=== PATIENT | male | born 1945 | race Caucasian/White ===

== ENCOUNTER 2024-03-26 22:18 | Inpatient (IN) | payer OTHER, SELFPAY ==
[2024-03-26] VITALS (42 sets, daily range): BP systolic 60–126; BP diastolic 39–67; BMI 29.3; BMI 28.6
[2024-03-26 19:42] LABS: Hematocrit 35.4 % (39.0-52.0); Hemoglobin 11.4 g/dL (13.0-18.0); Mean Corp Hgb Conc. 32.2 g/dL (33.0-37.0); Mean Corpuscular Hgb 28.6 pg (27.0-31.0); Mean Corpuscular Volume 88.9 fL (80.0-94.0); Mean Platelet Volume 11.3 fL (7.4-10.4); Platelet Count 153 10^3/uL (130-400); Red Blood Cell Count 3.98 10^6/uL (4.70-6.10); White Blood Cell Count 16.6 10^3/uL (4.8-10.8)
[2024-03-26] MEDS: NSS 1000 IV ×2 (19:53→23:51)
[2024-03-26] MEDS: ZOSYN 100 IV (19:56)
[2024-03-26] MEDS: NSS 1900 ML IV (19:56)
[2024-03-26 19:57] LABS: AST (SGOT) 44 U/L (17-59); Albumin 2.9 g/dl (3.5-5.0); Alkaline Phosphatase 129 U/L (38-126); Blood Urea Nitrogen 44 mg/dl (9-20); Calcium 8.7 mg/dl (8.4-10.2); Carbon Dioxide 19 mmol/L (22-30); Chloride 102 mmol/L (98-107); Estimated Creatinine Clearance 32 ml/min; Glucose 138 mg/dl (70-99); Potassium 4.3 mmol/L (3.5-5.1); Sodium 136 mmol/L (135-145); Total Bilirubin 0.9 mg/dl (0.2-1.3); Total Protein 6.4 g/dl (6.3-8.2); eGFR 33.32
[2024-03-26 20:01] LABS: Lactic Acid 6.5 mmol/L (0.7-2.0)
[2024-03-26 20:06] LABS: Urine Albumin 3+ (Neg - Trace); Urine Bilirubin 1+ (Negative); Urine Character Cloudy (Clear); Urine Color Yellow; Urine Glucose Negative (Negative); Urine Ketone 1+ (Negative); Urine Leukocyte 3+ (Negative); Urine Nitrite Negative (Negative); Urine Occult Blood 4+ (Negative); Urine Urobilinogen 1+ (Neg - 1+)
[2024-03-26 20:09] LABS: ALT (SGPT) 37 U/L (0-50)
[2024-03-26 20:39] LABS: B.E. -2.5 mmol/L; HCO3 21.6 mmol/L (21-28); PCO2 34 mmHg (35-48); PO2 123 mmHg (83-108); pH 7.41 (7.35-7.45)
--- NOTE | 2024-03-26 20:40 | ED.GENMED ---
History of Present Illness
General
Chief Complaint: Cold/Flu/URI Symptoms
Source: prison
Exam Limitations: clinical condition
Time Seen by Provider: 03/26/24 19:14
History of Present Illness
History of Present Illness:
79-year-old male presents with mental status change weakness hypotension and fever. All started apparently this afternoon. Was in reasonably good health this morning. Usually very alert and interactive. Patient is nonambulatory. Lives in a
wheelchair.
Past History
Past History
ED Past Medical History: HTN, Hypothyroidism and Psychiatric
ED Past Surgical History: Other (Hernia )
Social History
Tobacco: Smoker
Alcohol: None
Personal: Single
Living: with roommate
Employment: Disabled
Family History
Family History: Negative Early CAD
Review of Systems
Review of Systems
Unable to obtain full review of systems at this time due to: due to acuity
All Other Systems: Not applicable
Phy Exam
Physical Exam
Physical Exam:
GENERAL: Lethargic. Chronically ill-appearing. Does not respond to commands does respond to pain
EYE: Orbits normal.
NECK: Supple, no significant adenopathy.
ENT: Pharynx without erythema
CARDIAC: Regular rate and rhythm without any obvious murmurs.
LUNGS: Decreased effort to breathe. Slight rhonchi in the bases. No distress
ABDOMEN: Soft, without focal tenderness or distention
NEUROLOGICAL: Withdraws to pain in response to pain only. Does not follow commands
SKIN: Warm and dry, no rash or lesion, no discoloration, skin intact.
MUSCULOSKELETAL: No edema,no deformity.Good color
Sepsis
Sepsis Screening
Sepsis Assessment: Septic Shock
Sepsis Screening: Lactate >/=4mmol/L, Hypotension, ARF-Creatinine >2.0, Sustained Hypotension-SBP <90,MAP<65, or SBP decrease 40mmHg or more and Vasopressor support required
Sepsis Screen
Sepsis Screen: Septic Shock
Date: 03/26/24
Time: 23:29
Course
Orders/Labs/Results
Orders:
Orders
03/26/24 Dinner
NPO
Allow oral meds: Yes
Allow clear liquids: Sips of Clears
03/26/24 19:20
Electrocardiogram (*1) Urgent
Reason for Study: Other
Other Reason for Exam: sepsis
Cardiac Monitoring- Treatment ONCE
EKG- Treatment ONCE
IV Insert/Care/Rem.- Treatment PRN
Straight cath- Treatment ONCE
0.9% Sodium Chloride 1000 ml [Nss] 1,000 ml IV BOLUS
CR Chest Portable - 1 View Urgent
Comment:
Reason For Exam: Fever/sepsis
Reason Study Needs to be Portable: Unable to Transport
O2 Therapy [RESP] Urgent
Titrate/Wean O2 to maintain O2 sat greater than (%): 94
Pulse Ox/cont/shift [RESP] Urgent
Quantity: 1
03/26/24 19:23
Complete Blood Count/With Diff Urgent
Comprehensive Metabolic Panel Urgent
Lactic Acid Q4H
Comment: CANCEL 2nd LACTIC ACID IF 1st LACTIC ACID IS LESS THAN 2
Manual Differential Urgent
Influenza A+B Rapid Molecular Urgent
JOSE ELIAS Source: Nasal Swab
Specimen Description:
03/26/24 19:31
0.9% Sodium Chloride 1000 ml [Nss] 1,900 ml IV NOW STA
Piperacillin/Tazo 4.5 Gram [Zosyn] 4.5 gram in 100 ml IV NOW
Vancomycin [Vancocin] 2,000 mg 0.9% Sodium Chloride 500 ml [Nss] 500 ml IV NOW
03/26/24 19:34
CT Head W/o Iv Contrast Urgent
Comment:
Reason For Exam: Change in mental status
03/26/24 19:46
Urinalysis Reflex To Culture Urgent
Date Specimen was Collected: 03/26/24
Time Specimen was Collected: 19:45
Urine Microscopic Reflex Cult Urgent
Blood Culture Q30M
JOSE ELIAS Source: Blood/Venous
Specimen Description:
Blood Culture Q30M
JOSE ELIAS Source: Blood/Venous
Specimen Description:
Urine Culture Urgent
JOSE ELIAS Source: U
Specimen Description:
Date Specimen was Collected: 03/26/24
Time Specimen was Collected: 19:45
03/26/24 20:27
ABG [Arterial Blood Gas] Urgent
%Oxygen/Room Air: 2l
03/26/24 20:34
Vancomycin [Vancocin] 2,000 mg 0.9% Sodium Chloride 500 ml [Nss] 500 ml IV NOW
03/26/24 20:51
CT Abd/pelvis Wo Iv Cont Urgent
Reason For Exam: sepsis
03/26/24 21:12
NORepinephrine 4 MG/250 ML [Levophed] 4 mg in 250 ml .ROUTE .STK-MED
NORepinephrine 4 MG/250 ML [Levophed] 4 mg in 250 ml IV NOW
Initial dose in mcg/min, then titrate:: 2
Titrate to keep:: MAP > 65 mmHg
Titrate by mcg/min:: 1-2 mcg/min
Frequency of titrations (minutes):: 5
Maximum dose in ICU in mcg/min:: 30
Maximum dose in IMU in mcg/min:: 8
Maximum dose in IVU in mcg/min:: 4
Begin to taper infusion when:: Remained at goal for 4hrs
Taper by mcg/min:: 1-2 mcg/min
Frequency of taper (minutes) if patient maintains goal:: 30
Taper to off?: Yes
If infusion off & no longer maintaining goal:: Contact Provider
03/26/24 21:40
Admit/Transfer Patient As Directed
Co-Sign Provider:
Level of Care: Inpatient admission
Assign to:: ICU
Physician / Group: greta
Diagnosis: septic shock renal abscess
Reason for Hospitalization: septic shock renal abscess
Expected length of stay greater than two midnights?: Yes
ELOS- Estimated Length of Stay in days: 2
I certify the patient meets the requirements for IP care: Yes
03/26/24 21:44
Code Status As Directed
Resuscitation Status: Full Code
PRN Pain Medication Management As Directed
May give lesser potent ordered pain med per pt: Yes
preference::
Protocol:: Medication orders for pain may be administered in a
manner that supports deferring to patient preference
when the pt is:
- Requesting an ordered lesser potent pain medication.
Least to most potent pain medications are defined
as: acetaminophen < NSAID < tramadol < opioids
(morphine, oxycodone, hydromorphone).
- Requesting a lesser dose of the same medication IF
ORDERED.
- Requesting a less intrusive route of administration
if both routes are prescribed by the provider (PO <
IV).
03/26/24 23:15
Lactate Level [Lactic Acid] Q6H
0.9% Sodium Chloride 1000 ml [Nss] 1,000 ml IV 120 mls/hr
Piperacillin/Tazo 3.375 Gram [Zosyn] 3.375 gram in 50 ml IV Q6H
VANCOMYCIN Pharmacy to Dose [VANCOCIN Pharmacy to Dose] 1 each Pharmacy To Prepare [Call Pharmacy To Prepare] 0 ml IV PER PROTOCOL
03/26/24 23:15
UROLOGY CONSULT Routine
Consulting Provider: Gm Coppola
Was physician already notified: Yes
Activity As Directed
Activity Level: As Tolerated
Pneumatic Compression Sleeves As Directed
Type: Knee high
Vital Signs As Directed
Frequency: Per unit guidelines
DX Deep Vein Thrombosis Video Routine
03/26/24 23:30
Lactic Acid Q4H
Comment: CANCEL 2nd LACTIC ACID IF 1st LACTIC ACID IS LESS THAN 2
03/27/24 06:00
Complete Blood Count/With Diff IN AM
Comprehensive Metabolic Panel IN AM
Abnormal Lab Results
03/26/24 03/26/24 03/26/24
19:23 19:46 20:27
WBC 16.6 H 10^3/uL
(4.8-10.8)
RBC 3.98 L 10^6/uL
(4.70-6.10)
Hgb 11.4 L g/dL
(13.0-18.0)
Hct 35.4 L %
(39.0-52.0)
MCHC 32.2 L g/dL
(33.0-37.0)
RDW 15.0 H %
(11.5-14.5)
MPV 11.3 H fL
(7.4-10.4)
Abs Neuts (Manual) 15.9 H 10^3/uL
(1.4-6.5)
Segmented Neutrophils 81 H %
(42-75)
Band Neutrophils 15 H %
(0-3)
Lymphocytes (Manual) 1 L %
(20-51)
pCO2 34 L mmHg
(35-48)
pO2 123 H mmHg
(83-108)
ABG O2 Sat (Measured) 100.0 H %
(94-98)
Carbon Dioxide 19 L mmol/L
(22-30)
BUN 44 H mg/dl
(9-20)
Creatinine 2.0 H mg/dL
(0.7-1.3)
Glucose 138 H mg/dl
(70-99)
Lactic Acid 6.5 H* mmol/L
(0.7-2.0)
Alkaline Phosphatase 129 H U/L
(38-126)
Albumin 2.9 L g/dl
(3.5-5.0)
Urine Ketones 1+ A
(Negative)
Ur Occult Blood Reflex 4+ A
(Negative)
Urine Bilirubin 1+ A
(Negative)
Leukocyte Esterase Rfl 3+ A
(Negative)
Urine WBC (Reflex) >100 A /HPF
(0-5)
Urine Albumin (Reflex) 3+ A
(Neg - Trace)
03/26/24 19:23
03/26/24 19:23
Vital Signs
Initial and Last Documented VS:
Initial Vital Signs
Temp Pulse Resp BP Pulse Ox
103.3 F H 75 20 76/66 88
03/26/24 19:13 03/26/24 19:13 03/26/24 19:13 03/26/24 19:13 03/26/24 19:13
Last Documented Vital Signs
Temp Pulse Resp BP Pulse Ox
98.3 F 68 21 100/58 99
03/26/24 22:06 03/26/24 23:21 03/26/24 23:20 03/26/24 23:21 03/26/24 23:10
MDM/Problems Addressed
Differential Diagnosis Includes:
Patient is septic. Hypotensive change in mental status fever. Fluids antibiotics discussed with patient's cousin she is not power of document review attorney. Patient is listed as full code. Workup in progress. Urine positive.
*Radiology
Radiology exam reviewed: radiology read reviewed (Perirenal abscess versus mass)
*Pulse Oximetry
Patient hypoxic: yes
*EKG
Interpreted by ED Provider?: Yes
Interpretation: abnormal
Comparison EKG: no comparison EKG present
Heart Rate: 73
Rate: normal
Rhythm: junctional
[place]: normal axis
Interval: normal interval
QRS Pattern: normal QRS
Ischemia: non-specific ST changes
*Head Of Quality Interpretation
Rate: normal
Interpretation: abnormal
Heart Rate: 70
Rhythm: other (Atrial paced)
*Critical Care Note
Total Time (30-74mins, 75-104mins- exclusive of procedures): 50
Update Note
Update Note:
2114... Rechecked multiple times. Pressures remain low despite fluids. Will start Levophed. Perirectal abscess versus mass. Referred to hospitalist.
ED Attending Note
-
Portions of this chart may have been created with voice recognition software.� Occasional wrong word or��sound alike� substitutions may have occurred due to the inherent limitations of voice recognition software.
Discharge Plan
Departure
Patient Disposition: Admit
Date of Disposition: 03/26/24
Time of Disposition: 21:12
Presentation/result/management discussed w/ accepting MD/DO: Hospitalist
Discharge Problem:
Septic shock, Possible perinephric abscess, Urosepsis
Interventions
Interventions:
*Risk Screen - Suicide Last Done: 03/26/24 19:26
*General Assessment Last Done: 03/26/24 19:26
*Neglect/Abuse Screening Last Done: 03/26/24 19:26
ED- Fall Risk Assessment Last Done: 03/26/24 21:43
*ED COVID-19 Vaccine History Last Done: 03/26/24 19:26
*Nursing Disposition Last Done: 03/26/24 23:25
ED- Pulmonary Assessment Last Done: 03/26/24 21:43
Discharge Date and Time
Discharge Date/Time: 03/26/24 23:26
[2024-03-26 20:52] LABS: Urine White Cell >100 /HPF (0-5)
[2024-03-26] MEDS: VANCOCIN 540 MG IV (21:08)
[2024-03-26] MEDS: LEVOPHED 250 IV (21:13)
--- NOTE | 2024-03-26 21:52 | HPS.HSE ---
Addendum entered and electronically signed by Graciela Garcia MD 03/26/24 22:05:
Discussed findings with urology. No need for urgent urological intervention due to lack of obstruction. Can try to attempt CT abdomen pelvis with IV contrast tomorrow if hemodynamically more stable and improvement in GABRIEL. Will also need to have
IR see if they can drain the potential abscess.
Original Note:
Family Physician
-
Family Physician: Jerman Gaitan
Chief Complaint
-
altered mental status
History of Present Illness
79-year-old male past medical history of CAD, atrial fibrillation, hypertension, hypothyroidism, anxiety, depression, asthma, glucoma, IBS, kidney stones, prostate cancer, presenting from [facility] with change in mental status, weakness and
hypertension fever. Symptoms apparently started this afternoon. Was apparently in reasonably good health until this morning. Usually very alert and interactive. Patient cannot provide any history at this time.
Medical History
Past Medical History
Past Medical History: Reports Other (CAD, atrial fibrillation, hypertension, hypothyroidism, anxiety, depression, asthma, glucoma, IBS, kidney stones, prostate cancer)
Past Surgical History: Reports None
Social History
Tobacco: Non-smoker
Alcohol: None
Drug: None
Family History
Family History: Not pertinent
Allergies / Home Medications
Allergies reflects when Allergies were last updated in [facility].
Home Medications with original date entered in [facility]
Allergy/Medication List:
Allergies
Allergy/AdvReac Type Severity Reaction Status Date / Time
No Known Allergies Allergy Unverified 05/29/09 14:16
Home Medications
acetaminophen 325 mg tablet (Tylenol) 650 mg PO TID 03/26/24
aluminum-mag hydroxide-simethicone 200 mg-200 mg-20 mg/5 mL oral susp 30 ml PO Q6HPRN PRN heartburn 03/26/24
aspirin 81 mg tablet,delayed release 81 mg PO DAILY 03/26/24
atorvastatin 40 mg tablet (Lipitor) 40 mg PO QPM 03/26/24
bupropion HCl 150 mg tablet,12 hr sustained-release (Wellbutrin SR) 150 mg PO DAILY 03/26/24
diclofenac sodium 1 % topical gel 2 g topical BID l lat neck/posterior 03/26/24
divalproex 125 mg tablet,delayed release 250 mg PO BID 03/26/24
finasteride 5 mg tablet 5 mg PO DAILY 03/26/24
furosemide 20 mg tablet (Lasix) 20 mg PO DAILY 03/26/24
gabapentin 100 mg tablet 200 mg PO TID 03/26/24
latanoprost 0.005 % eye drops 1 drp BOTH EYES HS 03/26/24
levothyroxine 200 mcg tablet (Synthroid) 200 mcg PO DAILY 03/26/24
lisinopril 5 mg tablet 5 mg PO DAILY 03/26/24
loperamide 2 mg tablet 2 mg PO Q6HPRN PRN diarrhea 03/26/24
loratadine 10 mg tablet 10 mg PO DAILY 03/26/24
magnesium oxide 400 mg PO DAILY 03/26/24
metoprolol succinate 25 mg tablet,extended release 24 hr (Toprol XL) 25 mg PO DAILY 03/26/24
nystatin 100,000 unit/gram topical powder 1 applic topical TIDPRN PRN abd folds 03/26/24
oxybutynin chloride 5 mg tablet 5 mg PO HS 03/26/24
polyethylene glycol 3350 17 gram oral powder packet (Miralax) 17 g PO DAILY 03/26/24
rivaroxaban 20 mg tablet (Xarelto) 20 mg PO DAILY 03/26/24
tamsulosin 0.4 mg capsule (Flomax) 0.4 mg PO DAILY 03/26/24
tetrabenazine 12.5 mg tablet 12.5 mg PO DAILY 03/26/24
tiotropium bromide 18 mcg capsule with inhalation device (Spiriva with HandiHaler) 1 cap inhalation R DAILY 03/26/24
trazodone 50 mg tablet 75 mg PO HS 03/26/24
Review of Systems
-
History Source: Patient
A 12 point ROS was completed and negative except as noted: Yes
Constitutional: Reports No Symptoms
EENT: Reports No Symptoms
Respiratory: Reports No Symptoms
Cardiac: Reports No Symptoms
Abdomen/GI: Reports No Symptoms
: Reports No Symptoms
Musculoskeletal: Reports No Symptoms
Skin: Reports No Symptoms
Neurological: Reports No Symptoms
Endocrine: Reports No Symptoms
Hematologic/Lymphatic: Reports No Symptoms
Psych: Reports No Symptoms
Physical Exam
Vital Signs
Vital Signs
Temp Pulse Resp BP Pulse Ox
103.3 F H 69 18 74/44 100
03/26/24 19:13 03/26/24 21:30 03/26/24 21:30 03/26/24 21:30 03/26/24 21:15
Physical Exam
General: Well Developed, Well Nourished and No Apparent Distress
HEENT: NormoCephalic, Moist mucous membranes and Atraumatic
Respiratory: Clear
Cardiac: S1/S2 and Regular Rhythm; No Murmur or Rub
GI: Soft, Non Tender, Non Distended and Normal Bowel Sounds; No Organomegaly
Rectal: Deferred by Provider
Musculoskeletal: No Clubbing, No Cyanosis and No Edema
Skin: No Rash
Neuro: Nonfocal/grossly intact
Laboratory Results
-
03/26/24 19:23
03/26/24 19:23
Laboratory Results
pH 7.41 (7.35-7.45) 03/26/24 20:27
pCO2 34 mmHg (35-48) L 03/26/24 20:27
pO2 123 mmHg (83-108) H 03/26/24 20:27
HCO3 21.6 mmol/L (21-28) 03/26/24 20:27
Lactic Acid 6.5 mmol/L (0.7-2.0) H* 03/26/24 19:23
Total Bilirubin 0.9 mg/dl (0.2-1.3) 03/26/24 19:23
AST 44 U/L (17-59) 03/26/24 19:23
ALT 37 U/L (0-50) 03/26/24 19:23
Alkaline Phosphatase 129 U/L (38-126) H 03/26/24 19:23
Data Reviewed
-
Lab Data: Labs Reviewed by me
Old Records: Reviewed
Impression/Plan
-
IMPRESSION:
PLAN:
# Septic shock (fever, leukocytosis, hypertension) secondary to right-sided pyelonephritis/renal abscess versus malignancy
-Patient moans to sternal rub
-UA >[address]
-CT abdomen pelvis shows ill-defined hypodense lesion arising from the superior aspect of the kidney and may be contiguous with adjacent liver measuring 5.9 x 8.6 x 7.2 cm which could represent underlying malignancy or possible infection/abscess.
No obstructive uropathy
-CT head shows no acute abnormality
-Lactate 6.5
-ABG unremarkable
-IV fluids
-Check urine culture, blood cultures
-Vancomycin/Zosyn
-Levophed
-N.p.o. including oral medications due to mental status at this time
-urology consulted
# Acute kidney injury
-IV fluids
-Hold Lasix
-Hold lisinopril
CAD
-Continue aspirin and statin
Atrial fibrillation unspecified type
-Hold Xarelto
-Hold metoprolol due to hypotension
Essential hypertension
-Hold lisinopril
Hypothyroidism
-Continue levothyroxine
Anxiety/depression
-Continue bupropion, divalproex
-Hold trazodone
-Unclear why on tetrabenazine, no visible history of Bowie disease
Asthma
-Continue Spiriva
Glaucoma
IBS
Prostate cancer
-Continue tamsulosin, finasteride
History of kidney stones
Arthritis
Full code
DVT prophylaxis�SCDs
N.p.o.
[2024-03-26 23:13] LABS: Absolute Neutrophils -Man Diff 15.9 10^3/uL (1.4-6.5); Band Neutrophils 15 % (0-3); Lymphocytes 1 % (20-51); Monocytes 2 % (2-9); Myelocytes 1 % (-); Segmented Neutrophils 81 % (42-75); Total Cells Counted 100
[2024-03-26 23:20] LABS: Normal RBC Morphology Yes; Platelets Checked Yes
--- NOTE | 2024-03-26 23:34 | PHA.VAN.IN ---
Assessment
- Assessment
Renal Function: Unknown baseline
Maximum Temperature: 103.3F
Concomitant Antimicrobials: piperacillin/tazobactam
Plan
- Plan
Initial / Loading Dose: Vancomycin 2000mg given 03/26 at 2100
Monitoring: Random vancomycin level for 03/27 with am labs.
Will dose by level due to current renal function.
Pharmacokinetics Vancomycin I
- -
Patient Age: 79
Patient Sex: Male
Vancomycin Day #: 1
Indication: Genito-Urinary Tract
Requesting Provider: Dr. Garcia
Pertinent Antimicrobial Allergies:
NKA
Height / Weight:
Height 5 ft 11 in
Actual Weight 92.9 kg
- Vital Signs / Lab Results
Temp Pulse Resp BP Pulse Ox
98.3 F 68 21 100/58 99
03/26/24 22:06 03/26/24 23:21 03/26/24 23:20 03/26/24 23:21 03/26/24 23:10
Lab Results - Hematology
03/26/24
19:23
WBC 16.6 H
Band Neutrophils 15 H
Lab Results - Chemistry
03/26/24
19:23
BUN 44 H
Creatinine 2.0 H
Estimated Creat Clear 32
Albumin 2.9 L
03/26/24
19:23
Lactic Acid 6.5 H*
Lab Results - Urine
03/26/24
19:46
Urine Nitrite (Reflex) Negative
Leukocyte Esterase Rfl 3+ A
Urine WBC (Reflex) >100 A
Ur Squamous Epith Cells
Microbiology Results
03/26/24 19:23 Influenza Types A & B (RICHA) - Final
Nasal Swab Negative for Influenza A & B, NAAT
Negative results must be combined with clinical observations
and patient history.
Nucleic Acid Amplification test (NAAT)performed on the
[employer] platform.
[2024-03-27] VITALS (52 sets, daily range): BP systolic 76–142; BP diastolic 25–99; BMI 28.9
[2024-03-27 00:01] LABS: Lactic Acid 2.1 mmol/L (0.7-2.0)
[2024-03-27 00:02] LABS: INR 1.62; PT 19.5 Sec (11.4-14.6)
[2024-03-27 00:03] LABS: APTT 37.9 Sec (23.4-35.0)
--- NOTE | 2024-03-27 00:23 | W.PN.SEPSIS ---
Sepsis
Vital Signs
Temp Pulse Resp BP Pulse Ox
98.3 F 68 21 100/58 98
03/26/24 22:06 03/26/24 23:21 03/26/24 23:20 03/26/24 23:21 03/26/24 23:44
Physical Exam
Physical Exam:
A focused exam was performed after fluid resuscitation.
Capillary Refill
Bilateral Upper Extremity:
Lanie Time: Less than 3 sec
Bilateral Lower Extremity:
Lanie Time: Less than 3 sec
Pulse Evaluation
Bilateral Radial:
Pulse Evaluation: Present
Bilateral Dorsalis Pedis:
Pulse Evaluation: Present
[2024-03-27 00:36] LABS: Glucose - Point of Care 230 mg/dl (70-99)
--- NOTE | 2024-03-27 00:36 | PTCARENOTE ---
Pt arrived from ED approx 2320. Pt was transferred from stretcher to bed by staff without incidence. Pt is very lethargic, briefly opens eyes to external stimuli. No commands followed, pt nonverbal at this time. Complete CHG bath provided upon
arrival to ICU. Lung sounds are clear/coarse throughout, pox 98% on 2L O2 nasal cannula. Telemetry rhythm reveals A-paced rhythm, HR 60's, no edema noted, palpable peripheral pulses present, knee high SCDs placed per order. Pt arrived from ED with
Levophed infusing at 15 mcg/min to maintain MAP > 65mmHg via L AC int. Pre-hospital R wrist int removed per protocol, new int placed in L FA (capped). HypoBS, abdomen soft nontender, NPO status maintained. Pt was straight cathed in ED for specimen,
no void as of yet on unit. #25 condom cath placed. Skin as documented. Will reposition pt Q2H for skin integrity. Call lopez within reach, safe environment maintained, bed alarm on and monitor for pt safety.
[2024-03-27] MEDS: NOVOLOG FLEXPEN-HIGH RESISTANCE 4 UNITS SC (00:48)
[2024-03-27] MEDS: ZOSYN 50 IV ×4 (01:55→19:35)
[2024-03-27] MEDS: LEVOPHED 250 IV ×3 (01:58→22:00)
[2024-03-27 04:04] LABS: Lactic Acid 1.3 mmol/L (0.7-2.0)
[2024-03-27 04:05] LABS: ALT (SGPT) 24 U/L (0-50); AST (SGOT) 43 U/L (17-59); Albumin 2.4 g/dl (3.5-5.0); Alkaline Phosphatase 109 U/L (38-126); Blood Urea Nitrogen 41 mg/dl (9-20); Calcium 7.7 mg/dl (8.4-10.2); Carbon Dioxide 24 mmol/L (22-30); Chloride 105 mmol/L (98-107); Estimated Creatinine Clearance 43 ml/min; Glucose 217 mg/dl (70-99); Hematocrit 31.9 % (39.0-52.0); Hemoglobin 10.4 g/dL (13.0-18.0); Mean Corp Hgb Conc. 32.6 g/dL (33.0-37.0); Mean Corpuscular Hgb 29.5 pg (27.0-31.0); Mean Corpuscular Volume 90.6 fL (80.0-94.0); Mean Platelet Volume 11.4 fL (7.4-10.4); Phosphorus 3.6 mg/dl (2.5-4.5); Platelet Count 150 10^3/uL (130-400); Red Blood Cell Count 3.52 10^6/uL (4.70-6.10); Red Cell Dist. Width 15.1 % (11.5-14.5); Sodium 137 mmol/L (135-145); Total Bilirubin 0.8 mg/dl (0.2-1.3); Total Protein 5.7 g/dl (6.3-8.2); eGFR 47.06
[2024-03-27 04:09] LABS: Vancomycin Random 16.7 ug/ml
--- NOTE | 2024-03-27 04:43 | PTCARENOTE ---
Tapering Levophed as able per parameters, see flowsheet.
Pt's rectal temp < 97F, order received to place pt on neris hugger. Device in use, rectal probe remains in place.
Oral care provided. Pt wakened slightly during care, speech was garbled but was able to state his name correctly. Informed pt he was in [facility]. Asked pt if he was experiencing any pain and pt responded 'no.' Continuing to reposition pt Q2H for skin
integrity. Will continue to monitor closely.
[2024-03-27] MEDS: NOVOLOG FLEXPEN-HIGH RESISTANCE 2 UNITS SC ×2 (05:00→18:38)
[2024-03-27 05:11] LABS: Glucose - Point of Care 192 mg/dl (70-99)
[2024-03-27 05:35] LABS: Monocytes 2 % (2-9)
[2024-03-27 05:36] LABS: Platelets Checked Yes
[2024-03-27 05:39] LABS: Absolute Neutrophils -Man Diff 19.9 10^3/uL (1.4-6.5); Band Neutrophils 26 % (0-3); Lymphocytes 3 % (20-51); Segmented Neutrophils 69 % (42-75)
[2024-03-27 05:47] LABS: Normal RBC Morphology Yes; Total Cells Counted 100; Toxic Granulation 1+
--- NOTE | 2024-03-27 06:20 | CONS.URO ---
Consultation
-
Date/Time Consultation Requested: 03/27/24
Date/Time Consultation Performed: 03/27/24
Requesting Provider: Hospitalist
Performing Provider: Anat
Reason for Consultation: right renal abscess
Medical History
History of Present Illness
79M presenting w/ altered mental status (baseline usually alert and interactive per records).
Patient unable to provide history at time of physical exam.
Prior urologic h/o kidney stones and prostate cancer.
On review of CT imaging, he appears to have had seed brachytherapy for treatment.
Past Medical History
Past Medical History: Arrhythmia (atrial fibrillation), Asthma, CAD, Cancer (prostate cancer s/p seed brachytherapy), HTN, Hypothyroidism, Psychiatric (anxiety/depression) and Other (glaucoma, IBS, kidney stones)
Social History
Unable to obtain full social history at this time due to: Acuity
Tobacco: Non-smoker
Alcohol: None
Drug: None
Living: Shelter
Allergies/Home Medications
Allergies
Allergy/AdvReac Type Severity Reaction Status Date / Time
ciprofloxacin Allergy Unknown Unknown Unverified 03/27/24 01:37
Quinolones Allergy Unknown Unknown Unverified 03/27/24 01:37
Home Medications
�Medication �Instructions �Recorded �Confirmed �Type
acetaminophen 325 mg tablet 650 mg PO TID 03/26/24 03/26/24 History
(Tylenol)
aluminum-mag hydroxide-simethicone 30 ml PO Q6HPRN PRN heartburn 03/26/24 03/26/24 History
200 mg-200 mg-20 mg/5 mL oral susp
aspirin 81 mg tablet,delayed 81 mg PO DAILY 03/26/24 03/26/24 History
release
atorvastatin 40 mg tablet (Lipitor) 40 mg PO QPM 03/26/24 03/26/24 History
bupropion HCl 150 mg tablet,12 hr 150 mg PO DAILY 03/26/24 03/26/24 History
sustained-release (Wellbutrin SR)
diclofenac sodium 1 % topical gel 2 g topical BID l lat 03/26/24 03/26/24 History
neck/posterior
divalproex 125 mg tablet,delayed 250 mg PO BID 03/26/24 03/26/24 History
release
finasteride 5 mg tablet 5 mg PO DAILY 03/26/24 03/26/24 History
furosemide 20 mg tablet (Lasix) 20 mg PO DAILY 03/26/24 03/26/24 History
gabapentin 100 mg tablet 200 mg PO TID 03/26/24 03/26/24 History
latanoprost 0.005 % eye drops 1 drp BOTH EYES HS 03/26/24 03/26/24 History
levothyroxine 200 mcg tablet 200 mcg PO DAILY 03/26/24 03/26/24 History
(Synthroid)
lisinopril 5 mg tablet 5 mg PO DAILY 03/26/24 03/26/24 History
loperamide 2 mg tablet 2 mg PO Q6HPRN PRN diarrhea 03/26/24 03/26/24 History
loratadine 10 mg tablet 10 mg PO DAILY 03/26/24 03/26/24 History
magnesium oxide 400 mg PO DAILY 03/26/24 03/26/24 History
metoprolol succinate 25 mg 25 mg PO DAILY 03/26/24 03/26/24 History
tablet,extended release 24 hr
(Toprol XL)
nystatin 100,000 unit/gram topical 1 applic topical TIDPRN PRN abd 03/26/24 03/26/24 History
powder folds
oxybutynin chloride 5 mg tablet 5 mg PO HS 03/26/24 03/26/24 History
polyethylene glycol 3350 17 gram 17 g PO DAILY 03/26/24 03/26/24 History
oral powder packet (Miralax)
rivaroxaban 20 mg tablet (Xarelto) 20 mg PO DAILY 03/26/24 03/26/24 History
tamsulosin 0.4 mg capsule (Flomax) 0.4 mg PO DAILY 03/26/24 03/26/24 History
tetrabenazine 12.5 mg tablet 12.5 mg PO DAILY 03/26/24 03/26/24 History
tiotropium bromide 18 mcg capsule 1 cap inhalation R DAILY 03/26/24 03/26/24 History
with inhalation device (Spiriva
with HandiHaler)
trazodone 50 mg tablet 75 mg PO HS 03/26/24 03/26/24 History
Review of Systems
-
Unable to obtain full review of systems at this time due to: Acuity
History Source: Shelter
A 12 point Review of Systems was completed except as noted: Yes
Physical Exam
Vital Signs
Vital Signs
Temp Pulse Resp BP Pulse Ox
97.1 F 92 20 78/66 95
03/27/24 05:00 03/27/24 07:00 03/27/24 07:00 03/27/24 07:00 03/27/24 05:34
Lab / Testing Results
Laboratory Results
03/27/24 03:31
03/27/24 03:31
Physical Exam
General: Well Developed and Well Nourished
HEENT: Normocephalic and Anicteric
Respiratory: Non Labored Respirations
Cardiac: Regular Rhythm
Breast: N/A
GI: Soft, Non Tender and Non Distended
Rectal: Deferred by Provider
Musculoskeletal: No Edema
Psych: Confused and Apparent Dementia
Assessment / Plan
-
Right renal abscess
Non-obstructing right renal stones
H/o prostate cancer s/p seed brachytherapy
CTAP w/o IV contrast => mass extending between the upper pole of the right kidney and the adjacent right lobe of the liver, appearing to invade both of these structures. A differential considerations are abscess and neoplasia, or possibly a
combination of these 2 processes. A right renal origin would seem most likely, but difficult to state with certainty.
Right renal stones.
Given non-contrast imaging, difficult to clearly determine if right renal mass present.
However, given clinical picture w/ altered mental status, signficant leukocytosis, and lactic acidosis on presentation => right renal abscess suspected.
- Advise IR consultation for peructaneous drainage (and fluid culture)
- IV antibiotics pending Cx data from drainage
- No indication for uro-surgical intervention
- Will require contrast-enhanced CT before discharge if renal function permits
D/w Hospitalist.
--- NOTE | 2024-03-27 08:00 | PTCARENOTE ---
Received pt with eyes closed.Eyes open to verbal stim.Speech is garbled.Oriented to self only.+MURCIA.Intermittently restless and drowsy.Throwing legs over the side rail.VERNON 3mm.!00% A paced with occasional V paced beats noted.IVF and Levophed gtts
infusing.Temp 101.5 rectal. Coarse breath sounds throughout.POX 99% O2 2l NC.NPO.No NM.Condom cath draining portia urine.Skin integrity as documented.
--- NOTE | 2024-03-27 08:45 | PTCARENOTE ---
Self limiting SVT noted HR 193.Dr Franklin made aware.Temperature 103.8 rectal.Ofirmev given. Cooling blanket applied.
--- NOTE | 2024-03-27 08:54 | W.PN.HOSP.TC ---
Addendum entered and electronically signed by Christo Singh MD 03/27/24 11:11:
Spoke to Genevieve, building maintenance worker, states pt is chronic wheelchair dependent, but is alert and interactive at the facility
#[phone]
Addendum entered and electronically signed by Christo Singh MD 03/27/24 09:48:
call back from Erica, assistant finance director,
she is unaware of pt having a POA
Original Note:
Today's Communication/Plan
-
IRAD consult
Urology consult
CCM consult
Assessment / Plan
Assessment / Plan
# Septic shock (fever, leukocytosis, hypertension) secondary to right-sided pyelonephritis/renal abscess versus malignancy
-Patient moans to sternal rub
-UA >100 WBC
-CT abdomen pelvis shows ill-defined hypodense lesion arising from the superior aspect of the Rt kidney and may be contiguous with adjacent liver measuring 5.9 x 8.6 x 7.2 cm which could represent underlying malignancy or possible infection/abscess.
No obstructive uropathy
-CT head shows no acute abnormality
-Lactate 6.5
-ABG unremarkable
-IV fluids
-Check urine culture, blood cultures
-Vancomycin/Zosyn
-Levophed - currently at 5mcg
-N.p.o. including oral medications due to mental status at this time
-urology consulted
just consulted IRAD
# Acute kidney injury
-IV fluids
-Hold Lasix
-Hold lisinopril
CAD
-Continue aspirin and statin
Pt NPO, currently on hold
Atrial fibrillation unspecified type
-Hold Xarelto
-Hold metoprolol due to hypotension
Essential hypertension
-Hold lisinopril
Hypothyroidism
-Continue levothyroxine
Anxiety/depression
-Continue bupropion, divalproex
-Hold trazodone
-Unclear why on tetrabenazine, no visible history of Pep disease
Asthma
-Continue Spiriva
Glaucoma
IBS
Prostate cancer
-Continue tamsulosin, finasteride
History of kidney stones
Arthritis
Call placed to Susie Sebasiten, listed as bus person dishwasher. She states she is not the POA and has not been in contact with pt for 20 yrs
Call placed to secondary contact, Jocelin Burnett. No answer
Call placed to [place] Master, left message to call back
Call placed to Esther, workforce management coordinator [phone], name and number given to me by Kaylah, requesting call back from nursing
Call placed to Dr. Estrada regarding IRAD and reviewed case
Discussed ordering studies for fluid analysis of abscess with Dr. Franklin
Total Critical Care Time 70 minutes. I was immediately available to the patient and staff. I personally examined, reviewed labs, diagnostic images/reports, interpretations, treatment plans, discussed patient care with other providers and family
or caregivers (if patient is unable to make decisions), entered orders as appropriate and documented the medical record.
Full code
DVT prophylaxis�SCDs
N.p.o.
Anticipated Discharge: > 48 hours
Subjective/Interval History
-
Date of Service: March 27, 2024
Confused, noncommunicative
Objective Data
-
Labs:
Laboratory Results
03/26/24 03/27/24
23:38 03:31
WBC 21.0 H
Hgb 10.4 L
Hct 31.9 L
Plt Count 150
PT 19.5 H
INR 1.62
APTT 37.9 H
Sodium 137
Potassium 4.0
Chloride 105
Carbon Dioxide 24
BUN 41 H
Creatinine 1.5 H
Glucose 217 H
Calcium 7.7 L
Total Bilirubin 0.8
AST 43
ALT 24
Alkaline Phosphatase 109
Vital Signs:
Vital Signs
Temp Pulse Resp BP Pulse Ox
98.4 F 92 20 78/66 95
03/27/24 07:21 03/27/24 07:00 03/27/24 07:00 03/27/24 07:00 03/27/24 05:34
I&O
03/26/24 03/27/24 03/28/24
06:59 06:59 06:59
Intake Total 1179.1 / 1179.1
Output Total 450 / 450
Balance 729.1 / 729.1
Review of Systems
-
History Source: Family (discussed with cousin, Susie Crowe) and Physician (reviewed with Dr. Franklin)
Constitutional: Reports Fever (103.3)
Respiratory: Reports No Symptoms
Cardiac: Reports No Symptoms
Physical Exam
-
General: Well Developed, Well Nourished and Appears Chronically Ill
HEENT: Normocephalic and Atraumatic
Respiratory: Clear to Auscultation (on limited exam)
Cardiac: Regular Rhythm and S1/S2
Neuro: Negative Awake, Alert or Oriented
[2024-03-27] MEDS: OFIRMEV 100 IV (09:18)
[2024-03-27] MEDS: NSS 1000 IV ×2 (09:18→18:29)
[2024-03-27 10:08] LABS: Glycohemoglobin (HgbA1c) 5.7 % (4.0-5.6)
--- NOTE | 2024-03-27 10:12 | CON.INTV ---
Consultation
Consultation Request
Date/Time Consultation Requested: 03/27/2024
Date/Time Consultation Performed: 03/27/2024
Requesting Provider: Dr. Singh
Performing Provider: Dr. Long Franklin
Reason for Consultation: Severe sepsis
Medical History
-
History of Present Illness:
79-year-old man with past medical history significant for coronary artery disease, atrial fibrillation, hypertension, hypothyroidism, anxiety, depression, asthma, kidney stones, prostate cancer presented from the snf with change in mental
status, weakness and fevers.
Patient started apparently the afternoon of admission. Apparently was not reasonably stable health until the morning of admission.
Apparently usually very alert and interactive.
At this point confused, unable to provide history, restless.
Found to be hypotensive, did not respond to IV fluids and transferred to the critical care unit for further evaluation.
Urinalysis consistent with possible UTI. CT abdomen pelvis with possible abscess around the liver/kidney. Urology evaluated the patient and there was no urological interventions.
Unable to provide history to my evaluation in the critical care unit. Remains on 12 mics per minute of Levophed.
Past Medical History
Past Medical History: Other (See assessment and plan)
Social History
Tobacco: Other (Unable to obtain acute)
Living: Shelter
Family History
Family History: Unable to Obtain (Critically ill, unable to provide history)
Allergies / Home Medications
Allergies
Allergy/AdvReac Type Severity Reaction Status Date / Time
ciprofloxacin Allergy Unknown Unknown Unverified 03/27/24 01:37
Quinolones Allergy Unknown Unknown Unverified 03/27/24 01:37
Home Medications
�Medication �Instructions �Recorded �Confirmed �Last Taken �Type
acetaminophen 325 mg tablet 650 mg PO TID 03/26/24 03/26/24 Unknown History
(Tylenol)
aluminum-mag hydroxide-simethicone 30 ml PO Q6HPRN PRN heartburn 03/26/24 03/26/24 Unknown History
200 mg-200 mg-20 mg/5 mL oral susp
aspirin 81 mg tablet,delayed 81 mg PO DAILY 03/26/24 03/26/24 Unknown History
release
atorvastatin 40 mg tablet (Lipitor) 40 mg PO QPM 03/26/24 03/26/24 Unknown History
bupropion HCl 150 mg tablet,12 hr 150 mg PO DAILY 03/26/24 03/26/24 Unknown History
sustained-release (Wellbutrin SR)
diclofenac sodium 1 % topical gel 2 g topical BID l lat 03/26/24 03/26/24 Unknown History
neck/posterior
divalproex 125 mg tablet,delayed 250 mg PO BID 03/26/24 03/26/24 Unknown History
release
finasteride 5 mg tablet 5 mg PO DAILY 03/26/24 03/26/24 Unknown History
furosemide 20 mg tablet (Lasix) 20 mg PO DAILY 03/26/24 03/26/24 Unknown History
gabapentin 100 mg tablet 200 mg PO TID 03/26/24 03/26/24 Unknown History
latanoprost 0.005 % eye drops 1 drp BOTH EYES HS 03/26/24 03/26/24 Unknown History
levothyroxine 200 mcg tablet 200 mcg PO DAILY 03/26/24 03/26/24 Unknown History
(Synthroid)
lisinopril 5 mg tablet 5 mg PO DAILY 03/26/24 03/26/24 Unknown History
loperamide 2 mg tablet 2 mg PO Q6HPRN PRN diarrhea 03/26/24 03/26/24 Unknown History
loratadine 10 mg tablet 10 mg PO DAILY 03/26/24 03/26/24 Unknown History
magnesium oxide 400 mg PO DAILY 03/26/24 03/26/24 Unknown History
metoprolol succinate 25 mg 25 mg PO DAILY 03/26/24 03/26/24 Unknown History
tablet,extended release 24 hr
(Toprol XL)
nystatin 100,000 unit/gram topical 1 applic topical TIDPRN PRN abd 03/26/24 03/26/24 Unknown History
powder folds
oxybutynin chloride 5 mg tablet 5 mg PO HS 03/26/24 03/26/24 Unknown History
polyethylene glycol 3350 17 gram 17 g PO DAILY 03/26/24 03/26/24 Unknown History
oral powder packet (Miralax)
rivaroxaban 20 mg tablet (Xarelto) 20 mg PO DAILY 03/26/24 03/26/24 Unknown History
tamsulosin 0.4 mg capsule (Flomax) 0.4 mg PO DAILY 03/26/24 03/26/24 Unknown History
tetrabenazine 12.5 mg tablet 12.5 mg PO DAILY 03/26/24 03/26/24 Unknown History
tiotropium bromide 18 mcg capsule 1 cap inhalation R DAILY 03/26/24 03/26/24 Unknown History
with inhalation device (Spiriva
with HandiHaler)
trazodone 50 mg tablet 75 mg PO HS 03/26/24 03/26/24 Unknown History
Review of Systems
-
Unable to Obtain full review of systems at this time due to: Acuity
Vitals / Labs / Diagnostic Testing
Vital Signs
Temp Pulse Resp BP Pulse Ox
98.4 F 92 20 78/66 95
03/27/24 07:21 03/27/24 07:00 03/27/24 07:00 03/27/24 07:00 03/27/24 05:34
Lab Data
03/27/24 03:31
03/27/24 03:31
Laboratory Results
03/26/24 03/26/24
20:27 23:38
PT 19.5 H
INR 1.62
APTT 37.9 H
pH 7.41
pCO2 34 L
pO2 123 H
HCO3 21.6
O2 Delivery Level
Microbiology
03/26/24 19:23 Nasal Swab Influenza Types A & B (RICHA) - Final
Negative for Influenza A & B, NAAT
Negative results must be combined with clinical observations
and patient history.
Nucleic Acid Amplification test (NAAT)performed on the
[employer] platform.
Diagnostic Testing:
Physical Exam
-
HEENT: Normocephalic
Cardiovascular: S1/S2
GI: Soft and Non Distended
Neurology: Awake, Other (Not following command, moving 4 extremities, restless.) and Other (Confused.)
General: Other (Not comfortable due to pain/fever)
Assessment
-
79-year-old man with past medical history noted, admitted through the hospital with change in mental status, fever, found to be hypotensive. On CT abdomen pelvis found to have a possible kidney abscess versus mass. Requiring Levophed and
transferred to the critical care unit for further care on 03/26/2024.
-Septic shock -Intra-abdominal source/pyelonephritis/urosepsis versus kidney abscess:
UA: Greater than 100 WBCs/proteinuria/3+ leukocyte esterase/
Kidney CT abdomen pelvis-mass which is thinks between the upper pole of the kidney and adjacent to the right lower lobe of the liver, appeared to invade both surfaces. Differential includes neoplasia versus abscess.
Several nephrolith involving the mid to lower right kidney.
Gallbladder poorly visualized due to motion artifact.
-Leukocytosis/fever
-Acute kidney injury-likely prerenal insult.
-Toxic metabolic encephalopathy due to sepsis
CT head no acute intracranial abnormality.
-
Conditions present prior admission:
group home resident
Coronary artery disease
Atrial fibrillation-on anticoagulation
Hypertension
Hypothyroidism
Anxiety
Depression
Asthma
Glaucoma
IBS
Kidney stones
Prostate cancer
Wheelchair-bound
Assessment and plan:
Critically ill requiring vasopressors. Septic shock likely due to intra-abdominal source-possibly urosepsis/cannot rule out renal abscess.
Patient does have kidney stones incidental on CAT scan-no hydronephrosis. No evidence for obstructive uropathy.
-
Continue Levophed to maintain mean arterial blood pressure 65 mmHg.
Hold antihypertensives
Hold diuretics
Acute kidney injury-likely prerenal insult
Status post IV fluid resuscitation
Continue normal saline at 120 cc an hour
Repeat labs later
Lactic acid cleared 2.1 down to 1.3
-
Possible intra-abdominal source/urinary source for infection-continue Zosyn and vancomycin
Wait for urine and blood cultures
Chest x-ray without acute infiltrate
Primary team has consulted interventional radiology for possible percutaneous biopsy
Urology saw the patient and there is no urological interventions to be offered at this point
-
N.p.o.
Head of the bed elevation
-
Metabolic encephalopathy due to sepsis
CT head negative
Baseline mental status not clearly documented but apparently patient is interactive at the snf.
-
Hold outpatient medications for now as the patient will be n.p.o.
If mental status does not improve we will need to place an NG tube
Usually on anticoagulation Xarelto. Hopefully can provide later
-
From the pulmonary perspective: COPD-not in acute exacerbation.
ABG 03/26/2024: 7.41/123.
Will add nebulizers as needed for now
Hold inhalers
No indication for systemic corticosteroids
-
A PICC line will be placed.
-
Prognosis is guarded
Full code
-
Efforts from primary team to locate family unsuccessful. There is no power of [place] attorney available.
Case management will be consulted for further assistance
-
Critical care statement: A total of 45 minutes of critical care time was provided for this patient today. This includes management of unstable vital signs, evaluation of the patient at bedside, reviewing the patient's pertinent medical records
including ventilator settings, arterial blood gases, radiographs, microbiology, laboratory evaluations and discussion with primary team, critical care nursing, and respiratory therapy.
--- NOTE | 2024-03-27 11:18 | PHA.VAN.FU ---
Vancomycin Assessment / Plan
- Assessment
Renal Function: SCR Decreasing (2.0->1.5)
WBC's are: Trending Up
In the past 24 hrs, patient has been: Hypothermic
Concomitant Antimicrobials: piperacillin/tazobactam
- Assessment - Therapeutic Drug Monitoring
Random Level: 16.7 - ~ 6.5 hrs post 2 gm load dose
- Dosing Plan
Continue: dose by random levels
Dosing by Level: Hold off on dosing today (GABRIEL)
- Monitoring Plan
Random Level: repeat random level AM 03/28
- Follow Up
Pharmacy will continue to follow.
Vancomycin Follow UP
- -
Patient Age: 79
Patient Sex: Male
Vancomycin Day #: 2
Indication: Genito-Urinary Tract
Requesting Provider: Dr. Garcia
Pertinent Antimicrobial Allergies:
NKA
Height / Weight:
Height 5 ft 11 in
Actual Weight 93.9 kg
Pertinent Past Medical History: non ambulatory; wheelchair bound
- Vital Signs / Lab Results
Temp Pulse Resp BP Pulse Ox
98.4 F 92 20 78/66 95
03/27/24 07:21 03/27/24 07:00 03/27/24 07:00 03/27/24 07:00 03/27/24 05:34
Lab Results - Hematology
03/26/24 03/27/24
19:23 03:31
WBC 16.6 H 21.0 H
Band Neutrophils 15 H 26 H D
Lab Results - Chemistry
03/26/24 03/27/24
19:23 03:31
BUN 44 H 41 H
Creatinine 2.0 H 1.5 H
Estimated Creat Clear 32 43
Albumin 2.9 L 2.4 L
03/26/24 03/26/24 03/26/24
19:23 23:38 23:38
Lactic Acid 6.5 H* 2.1 H Cancelled
03/27/24
03:31
Lactic Acid 1.3
Lab Results - Urine
03/26/24
19:46
Urine Nitrite (Reflex) Negative
Leukocyte Esterase Rfl 3+ A
Ur Squamous Epith Cells
Microbiology Results
03/26/24 19:23 Influenza Types A & B (RICHA) - Final
Nasal Swab Negative for Influenza A & B, NAAT
Negative results must be combined with clinical observations
and patient history.
Nucleic Acid Amplification test (NAAT)performed on the
[employer] platform.
Therapeutic Drug Monitoring
Random Vancomycin 16.7 ug/ml 03/27/24 03:31
--- NOTE | 2024-03-27 12:00 | PTCARENOTE ---
Pt assessed.No change in assessment noted.
[2024-03-27 12:10] LABS: Glucose - Point of Care 103 mg/dl (70-99)
[2024-03-27] MEDS: NOVOLOG FLEXPEN-HIGH RESISTANCE SC (12:57)
--- NOTE | 2024-03-27 13:31 | PTCARENOTE ---
Pt transported to IR/CT scan via bed.
--- NOTE | 2024-03-27 13:31 | PTCARENOTE ---
Pt transported to ICU via bed from CT/IR.Right flank NING draining sero sang fluid.
--- NOTE | 2024-03-27 14:03 | W.PN.IRAD.PR ---
Procedure Note
-
8 Fr percutaneous drainage catheter placed in right renal collection under CT guidance. 210 cc purulent fluid evacuated post catheter placement. Samples sent for analysis. No immediate complications.
--- NOTE | 2024-03-27 16:33 | PTCARENOTE ---
Pt assessed.No change in assessment noted.
[2024-03-27 17:19] LABS: Glucose - Point of Care 178 mg/dl (70-99)
[2024-03-27 19:51] LABS: Blood Urea Nitrogen 33 mg/dl (9-20); Calcium 7.9 mg/dl (8.4-10.2); Carbon Dioxide 24 mmol/L (22-30); Chloride 105 mmol/L (98-107); Estimated Creatinine Clearance 80 ml/min; Glucose 168 mg/dl (70-99); Potassium 3.9 mmol/L (3.5-5.1); Sodium 137 mmol/L (135-145); eGFR > 60.00
--- NOTE | 2024-03-27 20:00 | PTCARENOTE ---
Rec'd pt resting inbed, lethargic, arouses to tactile stimulation, then becomes agitated, disoriented to place, time, garbled speech, VERNON at 2mm, A paced, to keep MAP > 65- levophed gtt at 8 ananya- see flow sheet for titrations, weak pulses, + LE
edema, O2 2liters nc, lungs decr, sat 99, hypo bowel sounds,no bm, abd soft, round, R flank drain w/ purulent/sang drainage, # 25 condom cath on- voiding portia urine
[2024-03-28] VITALS (35 sets, daily range): BP systolic 88–122; BP diastolic 52–78; BMI 32.1
--- NOTE | 2024-03-28 | PTCARENOTE ---
sys reviewed, lungs w/ R base crackles, decr throughout, CHG bath done, linens changed
[2024-03-28] MEDS: NOVOLOG FLEXPEN-HIGH RESISTANCE 2 UNITS SC (00:25)
[2024-03-28 00:32] LABS: Glucose - Point of Care 161 mg/dl (70-99)
[2024-03-28] MEDS: ZOSYN 50 IV ×4 (01:58→19:19)
[2024-03-28] MEDS: NSS 1000 IV ×2 (03:23→09:06)
--- NOTE | 2024-03-28 03:38 | PTCARENOTE ---
sys reviewed, weaning levo as adelita
[2024-03-28 04:02] LABS: Hematocrit 31.2 % (39.0-52.0); Mean Corp Hgb Conc. 32.1 g/dL (33.0-37.0); Mean Corpuscular Hgb 28.8 pg (27.0-31.0); Mean Corpuscular Volume 89.9 fL (80.0-94.0); Mean Platelet Volume 12.1 fL (7.4-10.4); Platelet Count 106 10^3/uL (130-400); Red Blood Cell Count 3.47 10^6/uL (4.70-6.10); White Blood Cell Count 17.2 10^3/uL (4.8-10.8)
[2024-03-28 04:27] LABS: Blood Urea Nitrogen 29 mg/dl (9-20); Calcium 7.9 mg/dl (8.4-10.2); Carbon Dioxide 26 mmol/L (22-30); Chloride 106 mmol/L (98-107); Estimated Creatinine Clearance 91 ml/min; Glucose 123 mg/dl (70-99); Potassium 3.4 mmol/L (3.5-5.1); Sodium 138 mmol/L (135-145); eGFR > 60.00
[2024-03-28 04:38] LABS: Vancomycin Random 7.1 ug/ml
[2024-03-28] MEDS: KCL 50 IV (05:30)
[2024-03-28] MEDS: NOVOLOG FLEXPEN-HIGH RESISTANCE 1 UNITS SC ×2 (05:34→17:43)
[2024-03-28 05:44] LABS: Glucose - Point of Care 126 mg/dl (70-99)
--- NOTE | 2024-03-28 07:47 | W.PN.INTV ---
Today's Communication / Plan
Recommendations
Wean norepinephrine
Decrease IV fluids
Speech therapy evaluation
Antibiotics
Follow-up cultures
If able to be weaned off pressors then transfer out of ICU-call pulmonary if respiratory issues arise
Assessment
-
79-year-old man with past medical history noted, admitted through the hospital with change in mental status, fever, found to be hypotensive. On CT abdomen pelvis found to have a possible kidney abscess versus mass. Requiring Levophed and
transferred to the critical care unit for further care on 03/26/2024.
-Septic shock -Intra-abdominal source/pyelonephritis/urosepsis versus kidney abscess:
UA: Greater than 100 WBCs/proteinuria/3+ leukocyte esterase/
Kidney CT abdomen pelvis-mass which is thinks between the upper pole of the kidney and adjacent to the right lower lobe of the liver, appeared to invade both surfaces. Differential includes neoplasia versus abscess.
Several nephrolith involving the mid to lower right kidney.
Gallbladder poorly visualized due to motion artifact.
-Leukocytosis/fever
-Acute kidney injury-likely prerenal insult.
-Toxic metabolic encephalopathy due to sepsis
CT head no acute intracranial abnormality.
Conditions present prior admission:
[facility] resident
Coronary artery disease
Atrial fibrillation-on anticoagulation
Hypertension
Hypothyroidism
Anxiety
Depression
Asthma
Glaucoma
IBS
Kidney stones
Prostate cancer
Wheelchair-bound
Assessment and plan:
Hemodynamics have improved-remains critically ill on pressors
Supplemental oxygen as needed
Incentive spirometry
Aspiration precautions
Speech therapy evaluation
Nebulizers if needed
Steroids not indicated
Cultures reviewed
Blood cultures 03/26/202403/20-E. coli
Influenza negative
Urine culture-pending
MRSA screen negative
Right kidney drainage cultures 03/27/2024-moderate WBCs, few gram-negative rods, few gram-positive rods
Empiric antibiotics-Zosyn and vancomycin
Interventional radiology-03/27/2024-percutaneous drainage catheter placed right renal collecting with 210 mL purulent fluid evacuated
Follow leukocytosis
Norepinephrine and vasopressin if needed-attempt to wean
Follow lactate
Decrease IV fluids
Urology following-no urologic intervention needed
Follow hemoglobin
Transfuse if needed
Monitor blood sugar
Insulin supplementation as needed
DVT prophylaxis-resume Xarelto if able to swallow and no contraindications
Nutrition with aspiration precautions
Early mobilization
If able to be weaned off pressors then transfer out of ICU-call pulmonary if respiratory issues arise
Critical care statement: A total of 40 minutes of critical care time was provided for this patient today. This includes management of unstable vital signs, evaluation of the patient at bedside, reviewing the patient's pertinent medical records
including radiographs, pressor management, microbiology, laboratory evaluations, and discussion with primary team, consultants, pharmacy, nutrition, physical therapy, case management, charge nurse, critical care nursing, and respiratory therapy.
Subjective Dataa
Subjective Data
Date of Service:
Date of Service: March 28, 2024
Chief Complaint: [employer] Follow Up and Pulmonary Follow Up
Subjective:
No complaints chest pain, shortness of breath
Review of Systems
General: Other (Per HPI)
Objective Data
Data Reviewed
Vital Signs / I&O / Oxygen:
Vital Signs
Temp Pulse Resp BP Pulse Ox
97.1 F 80 17 105/63 98
03/28/24 03:04 03/28/24 06:30 03/28/24 06:30 03/28/24 06:30 03/28/24 06:00
Intake and Output
03/27/24 03/28/24 03/29/24
06:59 06:59 06:59
Intake Total 1179.1 / 1317.9 3715.2 / 3715.2
Output Total 450 / 450 2039 / 2039
Balance 729.1 / 867.9 1675.2 / 1675.2
SaO2 98
Nasal Cannula flow liters per 2
minute
Physical Exam
General: Respiratory Distress (n) and Comfortable
HEENT: Normocephalic and Anicteric
Cardiovascular: Regular Rhythm and Murmur
Respiratory: Crackles (Basilar), Rhonchi ( few expiratory), Non-Labored Respirations, Accessory Resp Muscle Use (n) and Stridor
GI: Soft, Non Distended and Non Tender
Neurology: Awake, Alert and No Motor Deficits
Skin: Warm, Good Color, Cyanosis (n), Jaundice (n) and Rash (n)
Labs/Micro/Reports
Lab Data
03/28/24 03:22
03/28/24 03:22
Microbiology
03/26/24 19:46 Blood/Venous Blood Culture - Preliminary
Positive culture in progress
03/26/24 19:46 Blood/Venous Gram Stain - Preliminary
03/26/24 19:46 Blood/Venous Blood Culture - Preliminary
Escherichia coli
03/26/24 19:46 Blood/Venous Gram Stain - Preliminary
03/26/24 19:23 Nasal Swab Influenza Types A & B (RICHA) - Final
Negative for Influenza A & B, NAAT
Negative results must be combined with clinical observations
and patient history.
Nucleic Acid Amplification test (NAAT)performed on the
[employer] platform.
--- NOTE | 2024-03-28 07:50 | W.PN.URO.CBU ---
Today's Communication / Plan
-
Maintain IR drain - defer to IR for removal
CTAP w/ IV contrast when clinically stable and off pressors (r/o right renal malignancy)
IV Zosyn per ID pending Cx data
D/w Hospitalist.
Urology following, please call w/ questions
Assessment / Plan
-
Right renal abscess
Non-obstructing right renal stones
H/o prostate cancer s/p seed brachytherapy
WBC downtrending
Cr WNL
Drain Cx => E. Coli
CTAP w/o IV contrast => mass extending between the upper pole of the right kidney and the adjacent right lobe of the liver, appearing to invade both of these structures. A differential considerations are abscess and neoplasia, or possibly a
combination of these 2 processes. A right renal origin would seem most likely, but difficult to state with certainty.
Right renal stones.
Given non-contrast imaging, difficult to clearly determine if right renal mass present.
However, given clinical picture w/ altered mental status, signficant leukocytosis, and lactic acidosis on presentation => right renal abscess suspected.
Diagnosis
-
Date of Service: March 28, 2024
-
Patient Diagnosis:
Right renal abscess
Non-obstructing right renal stones
H/o prostate cancer s/p seed brachytherapy
03/27: s/p percutaneous right ayesha-renal drain placement 8Fr (IR)
Subjective
-
Remains on pressors.
Hemodynamically improved in last 24 hrs.
Objective
-
Vital Signs
Temp Pulse Resp BP Pulse Ox
97 F 80 14 92/67 98
03/28/24 11:40 03/28/24 11:30 03/28/24 11:30 03/28/24 11:30 03/28/24 11:30
Intake and Output
03/27/24 03/28/24 03/29/24
06:59 06:59 06:59
Intake Total 1179.1 / 1317.9 3715.2 / 3864.0 816.4 / 816.4
Output Total 450 / 450 2040 / 2040 510 / 510
Balance 729.1 / 867.9 1675.2 / 1824.0 306.4 / 306.4
Intake:
IV fluids (Total) 1129.1 / 1267.9 3615.2 / 3764.0 806.4 / 806.4
KCL 25 / 50 75 / 75
Levophed 289.1 / 307.9 710.2 / 714.0 11.4 / 11.4
Nss 1,000 ml @ 120 mls/hr IV . 840 / 960 2880 / 3000 720 / 720
Q8H20M [facility] Rx#:[id number]
IV piggybacks 50 / 50 100 / 100
Amount instilled into Drain (
Total)
Right Back Luke-Hammer Placed
in IR
Output:
Drain Output (Total) 140 / 140 35 / 35
Right Back Luke-Hammer Placed 140 / 140 35 / 35
in IR
Urine, Voided 450 / 450 1900 / 1900 475 / 475
Other:
How many times incontinent 1
SATURATED amount urine
Laboratory Results
03/28/24 03:22
03/28/24 03:22
Physical Exam
-
General - well developed, well nourished, no acute distress
Abdomen - soft, non-tender, non-distended, right flank drain in place (8Fr)
Genitalia - normal
Skin - warm & dry with no rash
Extremities - no clubbing, no cyanosis, no edema
Care Review
Data Reviewed
Discussed with: Hospitalist, Nursing and IRAD
CT Scan: Report Pers Reviewed and Image Pers Reviewed
--- NOTE | 2024-03-28 08:45 | PTCARENOTE ---
Rec'd pt resting in bed, lethargic, arouses to tactile stimulation, then becomes agitated, disoriented to place, time, garbled speech, PERLLA at 3mm, A paced, to keep MAP > 65- levophed gtt at 1 mcg/min- see flow sheet for titrations, weak pulses, +
LE edema, O2 2liters nc, lungs decr, sat 97, hypo bowel sounds,no bm, abd soft, round, R flank drain w/ serosang drainage, # 25 condom cath on- voiding dark yellow urine
--- NOTE | 2024-03-28 10:38 | CM ---
Patient seen at bedside, chart reviewed
IA completed
[facility] at [facility] LTC resident per Esther liaison-bed hold
Dx: Septic shock; renal abcess
PICC placed 03/27, percutaneous drainage cath placed by IR
PMH: CAD, atrial fibrillation, hypertension, hypothyroidism, anxiety, depression, asthma, glaucoma, IBS, kidney stones, prostate cancer
Patient is a LTC resident at [facility]-Referral entered in [facility]port
PLOF: Esther will get back to
PCP: Jerman Gaitan
Pharmacy: [facility]
PLAN: Return to [facility] when medically stable.
--- NOTE | 2024-03-28 11:13 | CON.ID ---
Consultation
-
Date/Time Consultation Requested: 03/28/2024 0903
Date/Time Consultation Performed: 03/28/2024 1107
Requesting Provider: Dr. Vazquez
Performing Provider: Dr. Lee
Reason for Consultation: Renal abscess; E. coli bacteremia
Chief Complaint / Past History
History of Present Illness
Juarez Lou is a 79-year-old male being evaluated at the request of Dr. Vazquez regarding a renal abscess and bacteremia. History is obtained from chart review, along with patient interview.
Patient has a significant past medical history of A-fib and CAD and presented to [facility] ER on 03/26 from a local long-term following the development of change in mental status, fever and generalized weakness. Per reviewed records the
patient usually is very awake and interactive, but that day developed depressed mentation, and at the time of presentation to the ER could not provide any significant history. Workup in the ER revealed the possibility of a renal abscess, and the
patient was taken to interventional radiology for aspiration, with recovery of 210 cc of purulent fluid. Blood cultures are currently positive for E. coli, with susceptibilities pending.
Past History
Additional Past Medical History:
CAD
A-fib
Anxiety/depression
Asthma
Glaucoma
IBS
HTN
Hypothyroidism
Hx prostate CA
Past Surgical History: Other
Additional Past Surgical History:
Unknown
Allergy History:
ciprofloxacin Allergy (Unknown, Unverified 03/27/24 01:37)
Unknown
Medications Reviewed: Yes
Current Antibiotics:
Vancomycin (dosing per pharmacy)
Zosyn 3.375 g IV every 6 hours
Social History
Tobacco: Smoker
Alcohol: None
Drug: None
Personal: Single
Living: Shelter
Employment: Not Employed
Family History
Family History: Unable to Obtain
Review of Systems
Vital Signs
Temp Pulse Resp BP Pulse Ox
97.1 F 81 16 91/59 93
03/28/24 03:04 03/28/24 10:30 03/28/24 10:30 03/28/24 10:30 03/28/24 10:30
Physical Exam
Physical Exam
Constitutional: Comfortable, Chronically Ill and Non-toxic
Head: Normocephalic
Eyes: Pupils Equal, Pupils Round, No Conjunctival Hemorrhage and Sclera Anicteric
Oral: No Thrush and No Ulcers
Cardiovascular: S1/S2; Negative S3/S4
Pulmonary: Clear; Negative Wheezes or Rales
Gastrointestinal: Soft and Non Tender
Genito-Urinary: Phan (Condom cath in place with clear urine) and Other (Right flank NING in place with serosanguineous fluid in bulb)
Extremities: Edema; Negative Cyanosis or Erythema
Neurological: Awake
Psychological: Calm
.
Lab / Diagnostic Study Results
03/28/24 03:22
03/28/24 03:22
Total Counted 100 03/27/24 03:31
Abs Neuts (Manual) 19.9 10^3/uL (1.4-6.5) H 03/27/24 03:31
Segmented Neutrophils 69 % (42-75) 03/27/24 03:31
Band Neutrophils 26 % (0-3) H D 03/27/24 03:31
Lymphocytes (Manual) 3 % (20-51) L 03/27/24 03:31
PT 19.5 Sec (11.4-14.6) H 03/26/24 23:38
INR 1.62 03/26/24 23:38
Lactic Acid 1.3 mmol/L (0.7-2.0) 03/27/24 03:31
Ur Squamous Epith Cells /LPF (Few) 03/26/24 19:46
Microbiology Results
Micro:
03/27/24 03:31 MRSA Screen - Final
Nose No Methicillin Resistant Staphylococcus aureus isolated.
03/27/24 14:17 Wound Culture - Pending
Kidney - Right Gram Stain - Preliminary
03/26/24 19:46 Blood Culture - Preliminary
Blood/Venous Escherichia coli
Gram Stain - Preliminary
03/26/24 19:46 Blood Culture - Preliminary
Blood/Venous Escherichia coli
Gram Stain - Preliminary
03/26/24 19:46 Urine Culture - Pending
Urine
03/26/24 19:23 Influenza Types A & B (RICHA) - Final
Nasal Swab Negative for Influenza A & B, NAAT
Negative results must be combined with clinical observations
and patient history.
Nucleic Acid Amplification test (NAAT)performed on the
[employer] platform.
Imaging:
03/26/2024 CT abdomen/pelvis without contrast: here is a mass which extends between the upper pole of the right kidney and the adjacent right lobe of the liver, appearing to invade both of these structures. A differential considerations are abscess
and neoplasia, or possibly a combination of these 2 processes. A right renal origin would seem most likely, but difficult to state with certainty. Several nephroliths involving the mid to lower right kidney. No evidence for right ureteral calculus.
Gallbladder somewhat poorly visualized because of motion artifact. The low-density mass extends close to the posterior margin of the gallbladder, but does not appear to invade or arise from the gallbladder. Please see official report for
additional detail. Film personally viewed.
Assessment / Plan
E. coli bacteremia
Right renal abscess
Complicated urinary tract infection
Leukocytosis
Fever
Clinical sepsis
CAD
A-fib
Anxiety/depression
Asthma
Glaucoma
IBS
HTN
Hypothyroidism
Hx prostate CA
Recommendations:
Continue with empiric Zosyn while cultures remain pending.
Given recovery of E. coli from blood cultures, further vancomycin can be discontinued.
Trend white count.
Monitor fever curve.
Follow drain output.
Wean pressors as possible.
May need additional imaging as renal collection drains to assess for possible malignancy.
Patient critically ill on pressors in intensive care unit.
[2024-03-28] MEDS: NOVOLOG FLEXPEN-HIGH RESISTANCE SC (11:39)
[2024-03-28 11:50] LABS: Glucose - Point of Care 90 mg/dl (70-99)
--- NOTE | 2024-03-28 12:01 | PTCARENOTE ---
Pt drowsy but awakened with position change. Garbled speech and difficulty finding words but, with perseverance, able to make needs known. Mild pain in R flank reported. Able to tolerate sips of water without signs of aspiration. Awaiting ST for
further study. Levophed remains off.
[2024-03-28] MEDS: TYLENOL 650 MG PO ×3 (12:24→21:06)
--- NOTE | 2024-03-28 13:10 | PTOTSP ---
ST Acute Care Evaluation
Pt currently presents with clinical signs of mild oral dysphagia characterized by prolonged mastication and a munch chew pattern. No overt s/s of penetration or aspiration noted at bedside. Pt demonstrates rare instances of eructation s/p ingestion
of thin liquids.
Recommendations:
- Initiate PO diet of SOFT BITE SIZED SOLIDS, THIN LIQUIDS, with meds crushed in puree.
- General aspiration precautions: Fully awake, alert, upright for PO intake; slow rate; alternate solids/liquids.
- ELECTROTHERAPIST to f/u re: diet tolerance, determine if pt is a candidate for further diet consistency advancements, and to determine if pt would benefit from an instrumental swallow study.
- ELECTROTHERAPIST to monitor cognitive function in the setting of toxic metabolic encephalopathy.
--- NOTE | 2024-03-28 14:30 | W.PN.HOSP.TC ---
Today's Communication/Plan
-
continue Abx, follow ID recs
follow urology recs; CT in 48 hours. monitor drain outputs
Assessment / Plan
Assessment / Plan
Assessment:
Septic shock
Acute pyelonephritis vs renal abscess
E. Coli bacteremia from likely E. Coli UTI
- pressors weanedd off 03/28
- s/p IR drain 03/27
- follow cultures. continue Zosyn, ID following.
- Urology following; repeat CT (with IV contrast) planned in 48 hours
GABRIEL in setting of sepsis
- improving with IVF/pressors
- holding GIULIANA/Lasix
Hypokalemia
- replete prn
TME in setting of sepsis
- improving
- CT head no acute abnormality
intermediate resident
Wheelchair-bound
Coronary artery disease
- continue ASA/Statin
unspecified type of Atrial fibrillation
- resume Xarelto
- resume BB
Essential Hypertension
- holding BP meds; resume in 24 hours if stable
Hypothyroidism
- continue levothyroxine
Anxiety
Depression
- Continue bupropion, divalproex
- Hold trazodone
- Unclear why on tetrabenazine (no reported hx of [place])
Asthma
- continue Spiriva
Glaucoma
IBS
Kidney stones
Prostate cancer
- continue tamsulosin, finasteride
Wheelchair-bound
Arthritis
DVT ppx: Xarelto
Code: Full
Total Critical Care Time 40 minutes. I was immediately available to the patient and staff. I personally examined, reviewed labs, diagnostic images/reports, interpretations, treatment plans, discussed patient care with other providers and family
or caregivers (if patient is unable to make decisions), entered orders as appropriate and documented the medical record.
[facility]
Anticipated Discharge: > 48 hours
Subjective/Interval History
-
Date of Service: March 28, 2024
off pressors since early AM
passed ST eval
no complaints today
Objective Data
-
Labs:
Laboratory Results
03/28/24
03:22
WBC 17.2 H
Hgb 10.0 L
Hct 31.2 L
Plt Count 106 L D
Sodium 138
Potassium 3.4 L
Chloride 106
Carbon Dioxide 26
BUN 29 H
Creatinine 0.7
Glucose 123 H
Calcium 7.9 L
Vital Signs:
Vital Signs
Temp Pulse Resp BP Pulse Ox
97 F 61 14 88/68 99
03/28/24 11:40 03/28/24 14:00 03/28/24 14:00 03/28/24 14:00 03/28/24 13:00
I&O
03/27/24 03/28/24 03/29/24
06:59 06:59 06:59
Intake Total 1179.1 / 1317.9 3715.2 / 3864.0 1056.4 / 1056.4
Output Total 450 / 450 2040 / 2040 510 / 510
Balance 729.1 / 867.9 1675.2 / 1824.0 546.4 / 546.4
Physical Exam
-
General: No Apparent Distress
HEENT: Normocephalic and Atraumatic
Respiratory: Negative Wheezes
Cardiac: Regular Rhythm and S1/S2
GI: Soft and Nontender
Genito-urinary: No Costovertebral Tender
Neuro: AO x 3
Hematologic / Lymphatic: No Lymphadenopathy
Psych: Calm
Data Reviewed
-
Total Time Spent with Patient (in minutes): 45
Labs: Labs Reviewed by me
[2024-03-28] MEDS: NEURONTIN 200 MG PO ×2 (15:29→21:06)
[2024-03-28] MEDS: WELLBUTRIN SR (12 hour sustained release) 150 MG PO (15:29)
[2024-03-28 17:37] LABS: Glucose - Point of Care 93 mg/dl (70-99)
[2024-03-28] MEDS: XARELTO 20 MG PO (17:44)
[2024-03-28] MEDS: LIPITOR 40 MG PO (17:44)
--- NOTE | 2024-03-28 18:09 | PTCARENOTE ---
Condom cath slippage with large urine and stool incontinence. Bed bath performed with CHG, linen changed and #25 condom cath replaced.
[2024-03-28] MEDS: DEPAKOTE (12 HR RELEASE) 250 MG PO (19:19)
--- NOTE | 2024-03-28 20:19 | PTCARENOTE ---
rec' d pt resting in bed, oriented to person, place, , garbled speech, denies pain, RA sat 96, lungs decr in bases, r base crackes, adelita diet condom cath in place, report given to floor
--- NOTE | 2024-03-28 20:45 | PTCARENOTE ---
transferred to 410 -2 via bed accomp by self , pt on monitor
[2024-03-28] MEDS: DESYREL 75 MG PO (21:06)
[2024-03-28] MEDS: XALATAN OPHTHALMIC SOLUTION 1 DROP BOTH EYES (21:08)
[2024-03-28 21:32] LABS: Glucose - Point of Care 113 mg/dl (70-99)
[2024-03-29] MEDS: FLUSH (NSS) 1 FLUSH IV (02:05)
[2024-03-29] MEDS: ZOSYN 50 IV ×3 (02:05→13:07)
[2024-03-29 03:08] VITALS: BP 101/61
[2024-03-29] MEDS: SYNTHROID 200 MCG PO (03:54)
[2024-03-29 05:45] LABS: Hematocrit 29.1 % (39.0-52.0); Hemoglobin 9.4 g/dL (13.0-18.0); Mean Corp Hgb Conc. 32.3 g/dL (33.0-37.0); Mean Corpuscular Hgb 28.7 pg (27.0-31.0); Red Blood Cell Count 3.27 10^6/uL (4.70-6.10); Red Cell Dist. Width 14.8 % (11.5-14.5); White Blood Cell Count 11.3 10^3/uL (4.8-10.8)
[2024-03-29 05:49] LABS: Blood Urea Nitrogen 22 mg/dl (9-20); Calcium 7.8 mg/dl (8.4-10.2); Carbon Dioxide 29 mmol/L (22-30); Chloride 105 mmol/L (98-107); Estimated Creatinine Clearance 123 ml/min; Glucose 74 mg/dl (70-99); Potassium 3.5 mmol/L (3.5-5.1); Sodium 136 mmol/L (135-145); eGFR > 60.00
[2024-03-29 06:30] LABS: % Basophils 0.4 % (0-2); % Eosinophils 1.7 % (0-6); % Immature Granulocytes 0.7 % (0-0.5); % Lymphocytes 11.3 % (20.5-51.1); % Monocytes 5.4 % (1.7-9.3); % Neutrophils 80.5 % (42.2-75.2); Absolute Eosinophils 0.2 10^3/uL (0-0.7); Absolute Immature Granulocytes 0.1 10^3/uL (0-0.05); Absolute Lymphocytes 1.3 10^3/uL (1.2-3.4); Absolute Monocytes 0.6 10^3/uL (0.1-0.6); Absolute Neutrophils 9.1 10^3/uL (1.4-6.5); Nucleated Red Blood Cells % 0 % (-)
[2024-03-29] MEDS: SPIRIVA RESPIMAT 2.5 MCG 2 PUFF INH (07:23)
[2024-03-29 07:41] LABS: Glucose - Point of Care 88 mg/dl (70-99)
[2024-03-29] MEDS: DEPAKOTE (12 HR RELEASE) 250 MG PO ×2 (07:45→21:15)
[2024-03-29] MEDS: FLOMAX 0.4 MG PO (07:45)
[2024-03-29] MEDS: NEURONTIN 200 MG PO ×3 (07:45→21:15)
[2024-03-29] MEDS: CLARITIN 10 MG PO (07:45)
[2024-03-29] MEDS: PROSCAR 5 MG PO (07:45)
[2024-03-29] MEDS: TYLENOL 650 MG PO ×3 (07:45→21:15)
[2024-03-29] MEDS: WELLBUTRIN SR (12 hour sustained release) 150 MG PO (07:45)
[2024-03-29] MEDS: ASPIR LOW (ENTERIC COATED) 81 MG PO (07:45)
[2024-03-29] MEDS: TOPROL XL 25 MG PO (07:45)
[2024-03-29] MEDS: NOVOLOG FLEXPEN-HIGH RESISTANCE 1 UNITS SC ×3 (07:50→17:09)
[2024-03-29 07:55] VITALS: BP 116/65
[2024-03-29 11:55] VITALS: BP 113/62
--- NOTE | 2024-03-29 12:35 | W.PN.URO.CBU ---
Today's Communication / Plan
-
IV antibiotics per ID
CTAP w/ IV contrast in AM 03/30 (ordered)
Consider drain removal by IR in next [address] imaging
Assessment / Plan
-
Right renal abscess
E. Coli cUTI
E. Coli bacteremia
Non-obstructing right renal stones
H/o prostate cancer s/p seed brachytherapy
03/27: s/p percutaneous right ayesha-renal drain placement 8Fr (IR)
WBC downtrending
Cr WNL
UCx/BCx x2 => E. Coli
CTAP w/o IV contrast => mass extending between the upper pole of the right kidney and the adjacent right lobe of the liver, appearing to invade both of these structures. A differential considerations are abscess and neoplasia, or possibly a
combination of these 2 processes. A right renal origin would seem most likely, but difficult to state with certainty.
Right renal stones.
On non-contrast imaging difficult to determine if right renal mass present.
Given clinical picture w/ altered mental status, significant leukocytosis, and lactic acidosis on presentation => right renal abscess suspected.
Diagnosis
-
Date of Service: March 29, 2024
-
Patient Diagnosis:
Right renal abscess
E. Coli cUTI
E. Coli bacteremia
Non-obstructing right renal stones
H/o prostate cancer s/p seed brachytherapy
03/27: s/p percutaneous right ayesha-renal drain placement 8Fr (IR)
Subjective
-
No significant drain output.
Pressors weaned 24 hrs ago.
Objective
-
Vital Signs
Temp Pulse Resp BP Pulse Ox
97.4 F 65 18 113/62 99
03/29/24 11:55 03/29/24 11:55 03/29/24 11:55 03/29/24 11:55 03/29/24 11:55
Intake and Output
03/28/24 03/29/24 03/30/24
06:59 06:59 06:59
Intake Total 3715.2 / 3864.0 2946.4 / 2946.4
Output Total 2040 / 0 795 / 795 40 / 40
Balance 1675.2 / 1824.0 2151.4 / 2151.4 -30 / -30
Intake:
Oral fluids 184 / 1840
IV fluids (Total) 3615.2 / 3764.0 1096.4 / 1096.4
KCL 25 / 50 75 / 75
Levophed 710.2 / 714.0 11..4
Nss 1,000 ml @ 120 mls/hr IV . 2880 / 3000 1010 / 1010
Q8H20M [facility] Rx#:[id number]
IV piggybacks 100 / 100
Amount instilled into Drain (
Total)
Right Back Luke-Hammer Placed
in IR
Output:
Drain Output (Total) 140 / 140 35 / 35 40 / 40
Right Back Luke-Hammer Placed 140 / 140 35 / 35 40 / 40
in IR
Urine, Voided 1900 / 1900 760 / 760
Other:
Number of approximated LARGE 2
amounts of urine
How many times incontinent 1 1
SATURATED amount urine
Laboratory Results
03/29/24 04:57
03/29/24 04:57
Physical Exam
-
General - no acute distress
Abdomen - soft, non-tender, non-distended, right flank drain in place (8Fr)
Genitalia - normal
Extremities - no clubbing, no cyanosis, no edema
Care Review
Data Reviewed
Discussed with: Hospitalist
CT Scan: Report Pers Reviewed and Image Pers Reviewed
[2024-03-29 12:46] LABS: Glucose - Point of Care 81 mg/dl (70-99)
--- NOTE | 2024-03-29 15:54 | W.PN.HOSP.TC ---
Today's Communication/Plan
-
continue abx per ID
drain care per Urology/IR; CT in AM to assess
Assessment / Plan
Assessment / Plan
Assessment:
Septic shock
Acute pyelonephritis vs renal abscess
pansensitive E. Coli bacteremia from likely E. Coli UTI
- pressors weaned off 03/28
- s/p IR drain 03/27
- follow cultures. continue Zosyn, ID following.
- Urology following; repeat CT (with IV contrast) planned 03/30
AGBRIEL in setting of sepsis
- improving with IVF/pressors
- holding GIULIANA/Lasix
Hypokalemia
- replete prn
TME in setting of sepsis
- improving
- CT head no acute abnormality
half-way resident
Wheelchair-bound
Coronary artery disease
- continue ASA/Statin
unspecified type of Atrial fibrillation
- resume Xarelto
- resume BB
Essential Hypertension
- holding BP meds; resume in 24 hours if stable
Hypothyroidism
- continue levothyroxine
Anxiety
Depression
- Continue bupropion, divalproex
- Hold trazodone
- Unclear why on tetrabenazine (no reported hx of [place])
Asthma
- continue Spiriva
Glaucoma
IBS
Kidney stones
Prostate cancer
- continue tamsulosin, finasteride
Wheelchair-bound
Arthritis
DVT ppx: Xarelto
Code: Full
Anticipated Discharge: > 48 hours
Subjective/Interval History
-
Date of Service: March 29, 2024
no complaints at present
Objective Data
-
Labs:
Laboratory Results
03/29/24
04:57
WBC 11.3 H
Hgb 9.4 L
Hct 29.1 L
Plt Count
Sodium 136
Potassium 3.5
Chloride 105
Carbon Dioxide 29
BUN 22 H
Creatinine 0.6 L
Glucose 74
Calcium 7.8 L
Vital Signs:
Vital Signs
Temp Pulse Resp BP Pulse Ox
97.4 F 65 18 113/62 99
03/29/24 11:55 03/29/24 11:55 03/29/24 11:55 03/29/24 11:55 03/29/24 11:55
I&O
03/28/24 03/29/24 03/30/24
06:59 06:59 06:59
Intake Total 3715.2 / 3864.0 2946.4 / 2946.4
Output Total 2039 / 2039 795 / 795 40 / 40
Balance 1675.2 / 1824.0 2151.4 / 2151.4 -30 / -30
Physical Exam
-
General: No Apparent Distress
HEENT: Normocephalic and Atraumatic
Respiratory: Negative Wheezes
Cardiac: Regular Rhythm and S1/S2
GI: Soft and Nontender
Genito-urinary: No Costovertebral Tender
Musculoskeletal: No Edema
Neuro: AO x 3
Hematologic / Lymphatic: No Lymphadenopathy
Psych: Calm
Data Reviewed
-
Total Time Spent with Patient (in minutes): 41
Labs: Labs Reviewed by me
[2024-03-29 15:55] VITALS: BP 109/60
--- NOTE | 2024-03-29 16:28 | W.PN.ID1 ---
Date of Service
Date of Service: March 29, 2024
Today's Communication
Narrow to ampicillin alone.
Assessment / Plan
E. coli bacteremia
Right renal abscess
Complicated urinary tract infection
Leukocytosis
Fever
Clinical sepsis
CAD
A-fib
Anxiety/depression
Asthma
Glaucoma
IBS
HTN
Hypothyroidism
Hx prostate CA
Recommendations:
E. coli noted to be pansensitive. Patient without allergies.
Will narrow to ampicillin.
Trend white count.
Monitor fever curve.
Follow drain output.
May need additional imaging as renal collection drains to assess for possible malignancy.
����������������������������������������������������������
Chief Complaint
-: UTI and Bacteremia
Subjective / Review of Systems
Review of Systems: No Fever and No Chills
Vital Signs / Physical Exam
Vital Signs
Vital Signs
Temp Pulse Resp BP Pulse Ox
97.4 F 72 20 109/60 98
03/29/24 15:55 03/29/24 15:55 03/29/24 15:55 03/29/24 15:55 03/29/24 15:55
Physical Exam
Constitutional: Chronically Ill and Non-toxic
Eyes: Sclera Anicteric
Cardiovascular: S1/S2; Negative S3/S4
Pulmonary: Non Labored
Gastrointestinal: Soft and Non Tender
Neurological: Awake and Alert
Psychological: Calm
Objective Data
Lab Data
Lab Results
03/29/24 04:57
03/29/24 04:57
PT 19.5 Sec (11.4-14.6) H 03/26/24 23:38
INR 1.62 03/26/24 23:38
APTT 37.9 Sec (23.4-35.0) H 02/08/25 23:38
Estimated Creat Clear 123 ml/min 03/29/24 04:57
Lactic Acid 1.3 mmol/L (0.7-2.0) 03/27/24 03:31
Total Bilirubin 0.8 mg/dl (0.2-1.3) 03/27/24 03:31
AST 43 U/L (17-59) 03/27/24 03:31
ALT 24 U/L (0-50) 03/27/24 03:31
Alkaline Phosphatase 109 U/L (38-126) 03/27/24 03:31
Most recent labs reviewed.
Micro Results:
03/26/24 19:46 Urine Culture - Final
Urine Escherichia coli
03/26/24 19:46 Blood Culture - Final
Blood/Venous Escherichia coli
Gram Stain - Final
03/26/24 19:46 Blood Culture - Final
Blood/Venous Escherichia coli
Gram Stain - Final
03/27/24 14:17 Wound Culture - Preliminary
Kidney - Right Gram Stain - Preliminary
03/27/24 03:31 MRSA Screen - Final
Nose No Methicillin Resistant Staphylococcus aureus isolated.
03/26/24 19:23 Influenza Types A & B (RICHA) - Final
Nasal Swab Negative for Influenza A & B, NAAT
Negative results must be combined with clinical observations
and patient history.
Nucleic Acid Amplification test (NAAT)performed on the
[employer] platform.
Imaging:
03/26/2024 CT abdomen/pelvis without contrast: here is a mass which extends between the upper pole of the right kidney and the adjacent right lobe of the liver, appearing to invade both of these structures. A differential considerations are abscess
and neoplasia, or possibly a combination of these 2 processes. A right renal origin would seem most likely, but difficult to state with certainty. Several nephroliths involving the mid to lower right kidney. No evidence for right ureteral calculus.
Gallbladder somewhat poorly visualized because of motion artifact. The low-density mass extends close to the posterior margin of the gallbladder, but does not appear to invade or arise from the gallbladder. Please see official report for
additional detail. Film personally viewed.
[2024-03-29 16:36] LABS: Glucose - Point of Care 93 mg/dl (70-99)
[2024-03-29] MEDS: LIPITOR 40 MG PO (17:09)
[2024-03-29] MEDS: XARELTO 20 MG PO (17:09)
[2024-03-29 19:59] VITALS: BP 118/69
[2024-03-29] MEDS: XALATAN OPHTHALMIC SOLUTION 1 DROP BOTH EYES (21:15)
[2024-03-29] MEDS: AMPICILLIN 108 MG IV (21:15)
[2024-03-29] MEDS: DESYREL 75 MG PO (21:15)
[2024-03-29 21:46] LABS: Glucose - Point of Care 61 mg/dl (70-99)
[2024-03-29 22:08] LABS: Glucose - Point of Care 80 mg/dl (70-99)
--- NOTE | 2024-03-29 22:25 | PTCARENOTE ---
Patient blood glucose 61. Patient given orange juice and rechecked 15 minutes later. Blood glucose 80. Patient is asymptomatic. Will continue to monitor.
[2024-03-29 23:50] VITALS: BP 112/66
[2024-03-30] MEDS: AMPICILLIN 108 MG IV ×4 (02:55→21:07)
[2024-03-30 03:19] LABS: Glucose - Point of Care 70 mg/dl (70-99)
[2024-03-30 03:50] VITALS: BP 134/79
[2024-03-30] MEDS: SYNTHROID 200 MCG PO (05:30)
[2024-03-30 05:48] LABS: % Basophils 0.5 % (0-2); % Eosinophils 2.5 % (0-6); % Lymphocytes 14.9 % (20.5-51.1); % Monocytes 5.6 % (1.7-9.3); % Neutrophils 75.5 % (42.2-75.2); Absolute Eosinophils 0.2 10^3/uL (0-0.7); Absolute Immature Granulocytes 0.1 10^3/uL (0-0.05); Absolute Lymphocytes 1.3 10^3/uL (1.2-3.4); Absolute Monocytes 0.5 10^3/uL (0.1-0.6); Absolute Neutrophils 6.7 10^3/uL (1.4-6.5); Hematocrit 29.3 % (39.0-52.0); Hemoglobin 9.6 g/dL (13.0-18.0); Mean Corp Hgb Conc. 32.8 g/dL (33.0-37.0); Mean Corpuscular Hgb 29.2 pg (27.0-31.0); Mean Corpuscular Volume 89.1 fL (80.0-94.0); Mean Platelet Volume 11.8 fL (7.4-10.4); Nucleated Red Blood Cells % 0 % (-); Platelet Count 89 10^3/uL (130-400); Red Blood Cell Count 3.29 10^6/uL (4.70-6.10); White Blood Cell Count 8.8 10^3/uL (4.8-10.8)
[2024-03-30 06:08] LABS: Blood Urea Nitrogen 15 mg/dl (9-20); Calcium 7.8 mg/dl (8.4-10.2); Carbon Dioxide 27 mmol/L (22-30); Chloride 103 mmol/L (98-107); Estimated Creatinine Clearance 123 ml/min; Glucose 89 mg/dl (70-99); Sodium 137 mmol/L (135-145); eGFR > 60.00
[2024-03-30 07:13] VITALS: BP 130/76
[2024-03-30] MEDS: SPIRIVA RESPIMAT 2.5 MCG 2 PUFF INH (07:18)
[2024-03-30 07:32] VITALS: BP 130/76
[2024-03-30 08:08] LABS: Glucose - Point of Care 78 mg/dl (70-99)
[2024-03-30] MEDS: NOVOLOG FLEXPEN-HIGH RESISTANCE SC (09:17)
[2024-03-30] MEDS: DEPAKOTE (12 HR RELEASE) 250 MG PO ×2 (09:19→21:23)
[2024-03-30] MEDS: CLARITIN 10 MG PO (09:19)
[2024-03-30] MEDS: ASPIR LOW (ENTERIC COATED) 81 MG PO (09:19)
[2024-03-30] MEDS: WELLBUTRIN SR (12 hour sustained release) 150 MG PO (09:19)
[2024-03-30] MEDS: TYLENOL 650 MG PO ×3 (09:19→21:23)
[2024-03-30] MEDS: FLOMAX 0.4 MG PO (09:20)
[2024-03-30] MEDS: FLUSH (NSS) 1 FLUSH IV ×2 (09:20→13:51)
[2024-03-30] MEDS: PROSCAR 5 MG PO (09:20)
[2024-03-30] MEDS: NEURONTIN 200 MG PO ×3 (09:20→21:23)
[2024-03-30] MEDS: TOPROL XL 25 MG PO (09:20)
--- NOTE | 2024-03-30 09:31 | W.PN.HOSP.TC ---
Today's Communication/Plan
-
await repeat CT and f/u with Urology
Assessment / Plan
Assessment / Plan
Assessment:
Septic shock
Acute pyelonephritis vs renal abscess
pansensitive E. Coli bacteremia from likely E. Coli UTI
- pressors weaned off 03/28
- s/p IR drain 03/27
- follow cultures. continue Ampicillin, ID following.
- Urology following; repeat CT performed; pending read
GABRIEL in setting of sepsis
- improving with IVF/pressors
- holding GIULIANA/Lasix
Hypokalemia
- replete prn
TME in setting of sepsis
- improving
- CT head no acute abnormality
retirement resident
Wheelchair-bound
Coronary artery disease
- continue ASA/Statin
unspecified type of Atrial fibrillation
- resume Xarelto
- resume BB
Essential Hypertension
- holding BP meds; resume in 24 hours if stable
Hypothyroidism
- continue levothyroxine
Anxiety
Depression
- Continue bupropion, divalproex
- Hold trazodone
- Unclear why on tetrabenazine (no reported hx of Sonia)
Asthma
- continue Spiriva
Glaucoma
IBS
Kidney stones
Prostate cancer
- continue tamsulosin, finasteride
Wheelchair-bound
Arthritis
DVT ppx: Xarelto
Code: Full
Anticipated Discharge: > 48 hours
Subjective/Interval History
-
Date of Service: March 30, 2024
no complaints
NING drain 30 cc overnight per nursing
Objective Data
-
Labs:
Laboratory Results
03/30/24
04:48
WBC 8.8
Hgb 9.6 L
Hct 29.3 L
Plt Count 89 L
Sodium 137
Potassium 4.0
Chloride 103
Carbon Dioxide 27
BUN 15
Creatinine 0.5 L
Glucose 89
Calcium 7.8 L
Vital Signs:
Vital Signs
Temp Pulse Resp BP Pulse Ox
98.3 F 63 20 130/76 97
03/30/24 07:32 03/30/24 09:20 03/30/24 07:32 03/30/24 09:20 03/30/24 09:15
I&O
03/29/24 03/30/24 03/31/24
06:59 06:59 06:59
Intake Total 2946.4 / 2946.4 970 / 970
Output Total 795 / 795 5 / 5
Balance 2151.4 / 2151.4 -985 / -985
Physical Exam
-
General: No Apparent Distress
HEENT: Normocephalic and Atraumatic
Respiratory: Negative Wheezes
Cardiac: Regular Rhythm and S1/S2
GI: Soft
Genito-urinary: Other (R drain)
Musculoskeletal: No Edema
Neuro: AO x 3
Hematologic / Lymphatic: No Lymphadenopathy
Psych: Calm
Data Reviewed
-
Total Time Spent with Patient (in minutes): 44
Labs: Labs Reviewed by me
[2024-03-30 11:47] VITALS: BP 111/61
[2024-03-30 11:59] LABS: Glucose - Point of Care 105 mg/dl (70-99)
[2024-03-30] MEDS: NOVOLOG FLEXPEN-LOW RESISTANCE SC ×2 (12:03→16:45)
[2024-03-30 15:58] VITALS: BP 105/63
--- NOTE | 2024-03-30 16:15 | PTCARENOTE ---
Pt awake and alert; oriented to self/birthdate only. Forgetful; speech garbled at times; has involuntary movement of tongue. Cooperative. MURCIA; turns easily. VSS. On room air- pulse ox 97%, no SOB noted. Abd large, soft, adelita IDDI 6 diet well.
No dysphagia noted. Rt flank NING drain P/I serosanguinous drainage; dsg changed. Condom cath P/I mod amt clear yellow urine. lt forearm INT site and RUE dbl PICC site P/I without sx of infiltration.
--- NOTE | 2024-03-30 16:20 | W.PN.URO.CBU ---
Today's Communication / Plan
-
IV antibiotics per ID
Monitor drain output
Consider removal vs. repositioning by IR within [address] imaging reviewed => fluid collection decreased, no evidence of right renal malignancy
Assessment / Plan
-
Right renal abscess
E. Coli cUTI
E. Coli bacteremia
Non-obstructing right renal stones
H/o prostate cancer s/p seed brachytherapy
03/27: s/p percutaneous right ayesha-renal drain placement 8Fr (IR)
WBC normalized
Cr WNL
UCx/BCx x2 => E. Coli
Abscess Cx => E. Coli
CTAP w/o IV contrast => mass extending between the upper pole of the right kidney and the adjacent right lobe of the liver, appearing to invade both of these structures. A differential considerations are abscess and neoplasia, or possibly a
combination of these 2 processes. A right renal origin would seem most likely, but difficult to state with certainty.
Right renal stones.
03/30: CTAP w/ IV contrast => percutaneous drainage catheter at the posterior inferior margin of the exophytic abscess at the lateral aspect of the upper pole the right kidney and the abscess is significantly decreased in size measuring approximately
2.5 x 2.0 x 4.8 cm with small volume internal gas.
3 non-obstructing right renal stones.
Diagnosis
-
Date of Service: March 30, 2024
-
Patient Diagnosis:
Right renal abscess
E. Coli cUTI
E. Coli bacteremia
Non-obstructing right renal stones
H/o prostate cancer s/p seed brachytherapy
03/27: s/p percutaneous right ayesha-renal drain placement 8Fr (IR)
Subjective
-
Drain w/ decreasing output.
Afebrile.
Objective
-
Vital Signs
Temp Pulse Resp BP Pulse Ox
97.5 F 67 20 105/63 97
03/30/24 15:58 03/30/24 15:58 03/30/24 15:58 03/30/24 15:58 03/30/24 16:14
Intake and Output
03/29/24 03/30/24 03/31/24
06:59 06:59 06:59
Intake Total 2946.4 / 2946.4 970 / 970
Output Total 795 / 795 1954 / 1954
Balance 2151.4 / 2151.4 -985 / -985
Intake:
Oral fluids 1840 / 1840 960 / 960
IV fluids (Total) 1096.4 / 1096.4
KCL 75 / 75
Levophed 11.4 / 11.4
Nss 1,000 ml @ 120 mls/hr IV . 1010 / 1010
[id number] [facility] Rx#:[id number]
Amount instilled into Drain (
Total)
Right Back Luke-Hammer Placed
in IR
Output:
Drain Output (Total) 35 / 35 80 / 80
Right Back Luke-Hammer Placed 35 / 35 80 / 80
in IR
Urine, Voided 760 / 760 1874 / 1874
Other:
Number of approximated MODERATE 1
amounts of urine
Number of approximated LARGE 2
amounts of urine
How many times incontinent 1
SATURATED amount urine
Laboratory Results
03/30/24 04:48
03/30/24 04:48
Physical Exam
-
General - no acute distress
Abdomen - soft, non-tender, non-distended, right flank drain in place (8Fr)
Genitalia - normal
Care Review
Data Reviewed
Discussed with: Hospitalist and IRAD
CT Scan: Report Pers Reviewed and Image Pers Reviewed
Total Time Spent with Patient (in minutes): 25
[2024-03-30 16:43] LABS: Glucose - Point of Care 109 mg/dl (70-99)
[2024-03-30] MEDS: LIPITOR 40 MG PO (17:25)
[2024-03-30] MEDS: XARELTO 20 MG PO (17:26)
--- NOTE | 2024-03-30 17:29 | W.PN.ID1 ---
Date of Service
Date of Service: March 30, 2024
Today's Communication
Continue ampicillin.
Assessment / Plan
E. coli bacteremia
Right renal abscess
Complicated urinary tract infection
Leukocytosis
Fever
Clinical sepsis
CAD
A-fib
Anxiety/depression
Asthma
Glaucoma
IBS
HTN
Hypothyroidism
Hx prostate CA
Recommendations:
Recovered E. coli noted to be pansensitive. Patient without allergies.
Continue ampicillin.
Trend white count.
Monitor fever curve.
Follow drain output.
����������������������������������������������������������
Chief Complaint
-: UTI and Bacteremia
Subjective / Review of Systems
Review of Systems: No Fever and No Chills
Vital Signs / Physical Exam
Vital Signs
Vital Signs
Temp Pulse Resp BP Pulse Ox
97.5 F 67 20 105/63 97
03/30/24 15:58 03/30/24 15:58 03/30/24 15:58 03/30/24 15:58 03/30/24 16:14
Physical Exam
Constitutional: Chronically Ill and Non-toxic
Eyes: Sclera Anicteric
Cardiovascular: S1/S2; Negative S3/S4
Pulmonary: Non Labored
Gastrointestinal: Soft, Non Tender and Other (right NING in place)
Neurological: Awake and Alert
Psychological: Calm
Objective Data
Lab Data
Lab Results
03/30/24 04:48
03/30/24 04:48
PT 19.5 Sec (11.4-14.6) H 03/26/24 23:38
INR 1.62 03/26/24 23:38
APTT 37.9 Sec (23.4-35.0) H 03/26/24 23:38
Estimated Creat Clear 123 ml/min 03/30/24 04:48
Lactic Acid 1.3 mmol/L (0.7-2.0) 03/27/24 03:31
Total Bilirubin 0.8 mg/dl (0.2-1.3) 03/27/24 03:31
AST 43 U/L (17-59) 03/27/24 03:31
ALT 24 U/L (0-50) 03/27/24 03:31
Alkaline Phosphatase 109 U/L (38-126) 03/27/24 03:31
Most recent labs reviewed.
Micro Results:
03/27/24 14:17 Wound Culture - Preliminary
Kidney - Right Escherichia coli
Gram Stain - Preliminary
03/26/24 19:46 Urine Culture - Final
Urine Escherichia coli
03/26/24 19:46 Blood Culture - Final
Blood/Venous Escherichia coli
Gram Stain - Final
03/26/24 19:46 Blood Culture - Final
Blood/Venous Escherichia coli
Gram Stain - Final
03/27/24 03:31 MRSA Screen - Final
Nose No Methicillin Resistant Staphylococcus aureus isolated.
03/26/24 19:23 Influenza Types A & B (RICHA) - Final
Nasal Swab Negative for Influenza A & B, NAAT
Negative results must be combined with clinical observations
and patient history.
Nucleic Acid Amplification test (NAAT)performed on the
[employer] platform.
Imaging:
03/26/2024 CT abdomen/pelvis without contrast: here is a mass which extends between the upper pole of the right kidney and the adjacent right lobe of the liver, appearing to invade both of these structures. A differential considerations are abscess
and neoplasia, or possibly a combination of these 2 processes. A right renal origin would seem most likely, but difficult to state with certainty. Several nephroliths involving the mid to lower right kidney. No evidence for right ureteral calculus.
Gallbladder somewhat poorly visualized because of motion artifact. The low-density mass extends close to the posterior margin of the gallbladder, but does not appear to invade or arise from the gallbladder. Please see official report for
additional detail. Film personally viewed.
[2024-03-30 21:18] LABS: Glucose - Point of Care 87 mg/dl (70-99)
[2024-03-30] MEDS: DESYREL 75 MG PO (21:24)
[2024-03-30] MEDS: XALATAN OPHTHALMIC SOLUTION 1 DROP BOTH EYES (21:24)
[2024-03-30 23:21] VITALS: BP 112/71
[2024-03-31] MEDS: AMPICILLIN 108 MG IV ×4 (03:31→21:24)
[2024-03-31] MEDS: SYNTHROID 200 MCG PO (05:31)
[2024-03-31 07:17] LABS: % Basophils 0.8 % (0-2); % Eosinophils 4.7 % (0-6); % Immature Granulocytes 4.2 % (0-0.5); % Monocytes 7.7 % (1.7-9.3); % Neutrophils 65.6 % (42.2-75.2); Absolute Basophils 0.1 10^3/uL (0-0.2); Absolute Eosinophils 0.4 10^3/uL (0-0.7); Absolute Immature Granulocytes 0.4 10^3/uL (0-0.05); Absolute Lymphocytes 1.4 10^3/uL (1.2-3.4); Absolute Monocytes 0.6 10^3/uL (0.1-0.6); Absolute Neutrophils 5.5 10^3/uL (1.4-6.5); Hematocrit 32.9 % (39.0-52.0); Hemoglobin 10.6 g/dL (13.0-18.0); Mean Corp Hgb Conc. 32.2 g/dL (33.0-37.0); Mean Corpuscular Hgb 29.1 pg (27.0-31.0); Mean Corpuscular Volume 90.4 fL (80.0-94.0); Nucleated Red Blood Cells % 0 % (-); Red Blood Cell Count 3.64 10^6/uL (4.70-6.10); Red Cell Dist. Width 15.3 % (11.5-14.5); White Blood Cell Count 8.3 10^3/uL (4.8-10.8)
[2024-03-31 07:24] LABS: Blood Urea Nitrogen 11 mg/dl (9-20); Carbon Dioxide 27 mmol/L (22-30); Chloride 105 mmol/L (98-107); Estimated Creatinine Clearance 123 ml/min; Glucose 82 mg/dl (70-99); Potassium 4.2 mmol/L (3.5-5.1); Sodium 140 mmol/L (135-145); eGFR > 60.00
[2024-03-31 07:39] VITALS: BP 126/75
[2024-03-31] MEDS: SPIRIVA RESPIMAT 2.5 MCG INH (08:05)
[2024-03-31 08:26] LABS: Glucose - Point of Care 94 mg/dl (70-99)
[2024-03-31] MEDS: NOVOLOG FLEXPEN-LOW RESISTANCE SC ×3 (09:49→16:56)
[2024-03-31] MEDS: DEPAKOTE (12 HR RELEASE) 250 MG PO ×2 (09:50→21:24)
[2024-03-31] MEDS: ASPIR LOW (ENTERIC COATED) 81 MG PO (09:50)
[2024-03-31] MEDS: WELLBUTRIN SR (12 hour sustained release) 150 MG PO (09:50)
[2024-03-31] MEDS: CLARITIN 10 MG PO (09:50)
[2024-03-31] MEDS: TOPROL XL 25 MG PO (09:50)
[2024-03-31] MEDS: NEURONTIN 200 MG PO ×3 (09:50→21:24)
[2024-03-31] MEDS: FLOMAX 0.4 MG PO (09:51)
[2024-03-31] MEDS: PROSCAR 5 MG PO (09:51)
[2024-03-31] MEDS: FLUSH (NSS) 1 FLUSH IV ×2 (09:51→14:07)
[2024-03-31] MEDS: TYLENOL 650 MG PO ×3 (09:51→21:25)
--- NOTE | 2024-03-31 10:02 | W.PN.HOSP.TC ---
Today's Communication/Plan
-
continue drain and monitor outputs, follow IR/Urology recs
Abx per ID
Assessment / Plan
Assessment / Plan
Assessment:
Septic shock
Acute pyelonephritis vs renal abscess
pansensitive E. Coli bacteremia from likely E. Coli UTI (pansensitive E. Coli confirmed from drain culture as well)
- pressors weaned off 03/28
- s/p IR drain 03/27
- follow cultures. continue Ampicillin, ID following.
- Urology following
- repeat CT 03/30: partial but incomplete drainage of the abscess in the interval since the 03/26/2024 study
- d/w Urology/IR and will keep drain in place and re-evaluate removal vs repositioning in 24-48 hours
GABRIEL in setting of sepsis
- improving with IVF/pressors
- holding GIULIANA
- resume Lasix
Hypokalemia
- replete prn
TME in setting of sepsis
- improving
- CT head no acute abnormality
[facility] resident
Wheelchair-bound
Coronary artery disease
- continue ASA/Statin
unspecified type of Atrial fibrillation
- continue Xarelto/BB
Essential Hypertension
- holding GIULIANA
- resume Lasix
Hypothyroidism
- continue levothyroxine
Anxiety
Depression
- Continue bupropion, divalproex
- Hold trazodone
- Unclear why on tetrabenazine (no reported hx of Vigo)
Asthma
- continue Spiriva
Glaucoma
IBS
Kidney stones
Prostate cancer
- continue tamsulosin, finasteride
Arthritis
DVT ppx: Xarelto
Code: Full
Anticipated Discharge: > 48 hours
Subjective/Interval History
-
Date of Service: March 31, 2024
drain output 15 since shift mechanic
no complaints
Objective Data
-
Labs:
Laboratory Results
03/31/24
05:54
WBC 8.3
Hgb 10.6 L
Hct 32.9 L
Plt Count
Sodium 140
Potassium 4.2
Chloride 105
Carbon Dioxide 27
BUN 11
Creatinine 0.6 L
Glucose 82
Calcium 8.0 L
Vital Signs:
Vital Signs
Temp Pulse Resp BP Pulse Ox
97.6 F 69 18 126/75 96
03/31/24 07:39 03/31/24 09:50 03/31/24 07:39 03/31/24 09:50 03/31/24 09:48
I&O
03/30/24 03/31/24 04/01/24
06:59 06:59 06:59
Intake Total 970 / 970 786 / 786
Output Total 1954 / 1854
Balance -985 / -985 -1069 / -1069
Physical Exam
-
General: No Apparent Distress
HEENT: Normocephalic and Atraumatic
Respiratory: Negative Wheezes
Cardiac: Regular Rhythm and S1/S2
GI: Soft and Nontender
Genito-urinary: No Costovertebral Tender
Musculoskeletal: No Edema
Neuro: AO x 3
Hematologic / Lymphatic: No Lymphadenopathy
Psych: Calm
Data Reviewed
-
Total Time Spent with Patient (in minutes): 42
Labs: Labs Reviewed by me
[2024-03-31 11:42] LABS: Glucose - Point of Care 104 mg/dl (70-99)
--- NOTE | 2024-03-31 13:52 | W.PN.ID1 ---
Date of Service
Date of Service: March 31, 2024
Today's Communication
Continue current antibiotics.
Assessment / Plan
E. coli bacteremia
Right renal abscess
Complicated urinary tract infection
Leukocytosis
Fever
Clinical sepsis
CAD
A-fib
Anxiety/depression
Asthma
Glaucoma
IBS
HTN
Hypothyroidism
Hx prostate CA
Recommendations:
Recovered E. coli is pansensitive. Patient without allergies.
Continue ampicillin; with possible eventual transition to oral amox.
Trend white count.
Monitor fever curve.
Follow drain output.
����������������������������������������������������������
Chief Complaint
-: UTI and Bacteremia
Subjective / Review of Systems
Review of Systems: No Fever, No Chills and No Abdominal Pain
Vital Signs / Physical Exam
Vital Signs
Vital Signs
Temp Pulse Resp BP Pulse Ox
97.6 F 69 18 126/75 96
03/31/24 07:39 03/31/24 09:50 03/31/24 07:39 03/31/24 09:50 03/31/24 09:48
Physical Exam
Constitutional: Chronically Ill and Non-toxic
Eyes: Sclera Anicteric
Cardiovascular: S1/S2; Negative S3/S4
Pulmonary: Non Labored
Gastrointestinal: Soft, Non Tender and Other (right NING in place; scant output)
Neurological: Awake and Alert
Psychological: Calm
Objective Data
Lab Data
Lab Results
03/31/24 05:54
03/31/24 05:54
PT 19.5 Sec (11.4-14.6) H 03/26/24 23:38
INR 1.62 03/26/24 23:38
APTT 37.9 Sec (23.4-35.0) H 03/26/24 23:38
Estimated Creat Clear 123 ml/min 03/31/24 05:54
Lactic Acid 1.3 mmol/L (0.7-2.0) 03/27/24 03:31
Total Bilirubin 0.8 mg/dl (0.2-1.3) 03/27/24 03:31
AST 43 U/L (17-59) 03/27/24 03:31
ALT 24 U/L (0-50) 03/27/24 03:31
Alkaline Phosphatase 109 U/L (38-126) 03/27/24 03:31
Most recent labs reviewed.
Micro Results:
03/27/24 14:17 Wound Culture - Final
Kidney - Right Escherichia coli
Gram Stain - Final
03/26/24 19:46 Urine Culture - Final
Urine Escherichia coli
03/26/24 19:46 Blood Culture - Final
Blood/Venous Escherichia coli
Gram Stain - Final
03/26/24 19:46 Blood Culture - Final
Blood/Venous Escherichia coli
Gram Stain - Final
03/27/24 03:31 MRSA Screen - Final
Nose No Methicillin Resistant Staphylococcus aureus isolated.
03/26/24 19:23 Influenza Types A & B (RICHA) - Final
Nasal Swab Negative for Influenza A & B, NAAT
Negative results must be combined with clinical observations
and patient history.
Nucleic Acid Amplification test (NAAT)performed on the
[employer] platform.
Imaging:
03/30/2024 CT abdomen/pelvis with IV contrast: New percutaneous drain catheter at the posterior inferior margin of the exophytic abscess at the lateral aspect of the upper pole of the right kidney. There has been partial but incomplete drainage of
the abscess in the interval since the 03/26/2024 study, in size measures approximately 2.5 x 2.0 x 4.8 cm. Please see full dictation for additional detail.
03/26/2024 CT abdomen/pelvis without contrast: here is a mass which extends between the upper pole of the right kidney and the adjacent right lobe of the liver, appearing to invade both of these structures. A differential considerations are abscess
and neoplasia, or possibly a combination of these 2 processes. A right renal origin would seem most likely, but difficult to state with certainty. Several nephroliths involving the mid to lower right kidney. No evidence for right ureteral calculus.
Gallbladder somewhat poorly visualized because of motion artifact. The low-density mass extends close to the posterior margin of the gallbladder, but does not appear to invade or arise from the gallbladder. Please see official report for
additional detail. Film personally viewed.
[2024-03-31 15:52] VITALS: BP 102/54
--- NOTE | 2024-03-31 16:30 | PTCARENOTE ---
Pt awake and alert; oriented to self, conversation/confused/garbled. MURCIA slowly. Cooperative. VSS. On room air- pulse ox 97%, no SOB noted. Abd obese,soft, adelita PO. Incont mod amts clear yellow urine; condom cath P/I. RT flank NING drain patent
scanty amts serosanguinous drainage; dsg D/I. resting quietly at present. Will continue to monitor.
[2024-03-31 16:51] LABS: Glucose - Point of Care 111 mg/dl (70-99)
--- NOTE | 2024-03-31 16:59 | CM ---
CM continues to follow for pt's return to [facility] when medically stable. Awaiting information from [facility] Clinical LiaisonEsther.
Plan: Return to [facility] when medically stable.
[facility] Report: [phone]
[facility]
[2024-03-31] MEDS: LIPITOR 40 MG PO (17:15)
[2024-03-31] MEDS: XARELTO 20 MG PO (17:15)
[2024-03-31 21:19] LABS: Glucose - Point of Care 138 mg/dl (70-99)
[2024-03-31] MEDS: DESYREL 75 MG PO (21:24)
[2024-03-31] MEDS: XALATAN OPHTHALMIC SOLUTION 1 DROP BOTH EYES (21:25)
[2024-03-31 23:23] VITALS: BP 127/75
[2024-04-01] MEDS: AMPICILLIN 108 MG IV ×4 (01:31→20:14)
[2024-04-01] MEDS: SYNTHROID 200 MCG PO (05:06)
[2024-04-01 07:54] VITALS: BP 134/79
[2024-04-01 08:09] LABS: Glucose - Point of Care 259 mg/dl (70-99)
[2024-04-01 08:43] LABS: Hematocrit 31.1 % (39.0-52.0); Hemoglobin 10.1 g/dL (13.0-18.0); Mean Corp Hgb Conc. 32.5 g/dL (33.0-37.0); Mean Corpuscular Hgb 29.1 pg (27.0-31.0); Mean Corpuscular Volume 89.6 fL (80.0-94.0); Red Blood Cell Count 3.47 10^6/uL (4.70-6.10); Red Cell Dist. Width 15.3 % (11.5-14.5)
[2024-04-01] MEDS: SPIRIVA RESPIMAT 2.5 MCG 2 PUFF INH (08:55)
[2024-04-01 09:05] LABS: Blood Urea Nitrogen 12 mg/dl (9-20); Carbon Dioxide 26 mmol/L (22-30); Chloride 107 mmol/L (98-107); Estimated Creatinine Clearance 123 ml/min; Glucose 76 mg/dl (70-99); Potassium 4.1 mmol/L (3.5-5.1); Sodium 138 mmol/L (135-145); eGFR > 60.00
--- NOTE | 2024-04-01 09:31 | W.PN.HOSP.TC ---
Today's Communication/Plan
-
continue Abx as per ID
d/w IR and Urology; IR to evaluate repositioning vs removal of drain
Assessment / Plan
Assessment / Plan
Assessment:
Septic shock
Acute pyelonephritis vs renal abscess
pansensitive E. Coli bacteremia from likely E. Coli UTI (pansensitive E. Coli confirmed from drain culture as well)
- pressors weaned off 03/28
- s/p IR drain 03/27
- follow cultures. continue Ampicillin, ID following.
- Urology following
- repeat CT 03/30: partial but incomplete drainage of the abscess in the interval since the 03/26/2024 study
- d/w Urology/IR and will evaluate today for repositioning vs removal
GABRIEL in setting of sepsis
- improving with IVF/pressors
- holding GIULIANA
- resume Lasix
Hypokalemia
- replete prn
TME in setting of sepsis
- improving
- CT head no acute abnormality
half-way resident
Wheelchair-bound
Coronary artery disease
- continue ASA/Statin
unspecified type of Atrial fibrillation
- continue Xarelto/BB
Essential Hypertension
- holding GIULIANA
- resume Lasix
Hypothyroidism
- continue levothyroxine
Anxiety
Depression
- Continue bupropion, divalproex
- Hold trazodone
- Unclear why on tetrabenazine (no reported hx of Sonia)
Asthma
- continue Spiriva
Glaucoma
IBS
Kidney stones
Prostate cancer
- continue tamsulosin, finasteride
Arthritis
DVT ppx: Xarelto
Code: Full
Anticipated Discharge: Within 24 hours
Subjective/Interval History
-
Date of Service: April 01, 2024
no new complaints
Objective Data
-
Labs:
Laboratory Results
04/01/24
07:55
WBC 10.0
Hgb 10.1 L
Hct 31.1 L
Plt Count Pending
Sodium 138
Potassium 4.1
Chloride 107
Carbon Dioxide 26
BUN 12
Creatinine 0.5 L
Glucose 76
Calcium 8.0 L
Vital Signs:
Vital Signs
Temp Pulse Resp BP Pulse Ox
97.6 F 65 16 134/79 95
04/01/24 07:54 04/01/24 08:59 04/01/24 08:59 04/01/24 07:54 04/01/24 08:59
I&O
03/31/24 04/01/24 04/02/24
06:59 06:59 06:59
Intake Total 786 / 786 874 / 874
Output Total 1855 / 1855 865 / 865
Balance -1069 / -1069
Physical Exam
-
General: No Apparent Distress
HEENT: Normocephalic and Atraumatic
Respiratory: Negative Wheezes
Cardiac: Regular Rhythm and S1/S2
GI: Soft
Genito-urinary: Other (R renal drain, scant output)
Neuro: AO x 3
Hematologic / Lymphatic: No Lymphadenopathy
Psych: Calm
Data Reviewed
-
Total Time Spent with Patient (in minutes): 42
Labs: Labs Reviewed by me
[2024-04-01] MEDS: NOVOLOG FLEXPEN-LOW RESISTANCE 3 UNITS SC (09:32)
[2024-04-01] MEDS: FLUSH (NSS) 2 FLUSH IV ×2 (09:33→15:22)
[2024-04-01] MEDS: DEPAKOTE (12 HR RELEASE) 250 MG PO ×2 (09:34→20:15)
[2024-04-01] MEDS: TOPROL XL 25 MG PO (09:34)
[2024-04-01] MEDS: NEURONTIN 200 MG PO ×3 (09:34→20:15)
[2024-04-01] MEDS: FLOMAX 0.4 MG PO (09:34)
[2024-04-01] MEDS: WELLBUTRIN SR (12 hour sustained release) 150 MG PO (09:34)
[2024-04-01] MEDS: CLARITIN 10 MG PO (09:34)
[2024-04-01] MEDS: PROSCAR 5 MG PO (09:35)
[2024-04-01] MEDS: ASPIR LOW (ENTERIC COATED) 81 MG PO (09:35)
[2024-04-01] MEDS: TYLENOL 650 MG PO ×3 (09:35→20:15)
[2024-04-01] MEDS: LASIX 20 MG PO (09:45)
--- NOTE | 2024-04-01 09:59 | W.PN.UPDATE ---
Update Note
Progress Note Update
No significant drainage from right ayesha-renal drain o/n.
WBC normalized.
Afebrile.
- Plan for IR fluoroscopic drain study and repositioning (vs. removal) when feasible for IR
- Continue IV antibiotics per ID
Discussed w/ IR and Hospitalist this AM
[2024-04-01 12:55] LABS: Glucose - Point of Care 62 mg/dl (70-99)
[2024-04-01 13:18] LABS: Glucose - Point of Care 79 mg/dl (70-99)
[2024-04-01] MEDS: NOVOLOG FLEXPEN-LOW RESISTANCE SC ×2 (13:27→17:54)
--- NOTE | 2024-04-01 14:43 | W.PN.ID1 ---
Date of Service
Date of Service: April 01, 2024
Today's Communication
Continue antibiotics.
Assessment / Plan
E. coli bacteremia
Right renal abscess
Complicated urinary tract infection
Leukocytosis
Fever
Clinical sepsis
CAD
A-fib
Anxiety/depression
Asthma
Glaucoma
IBS
HTN
Hypothyroidism
Hx prostate CA
Recommendations:
Continue ampicillin; with possible eventual transition to oral amox.
Await evaluation of collection and tube check by IR.
Trend white count.
Monitor fever curve.
Follow drain output.
����������������������������������������������������������
Chief Complaint
-: UTI and Bacteremia
Subjective / Review of Systems
Review of Systems: No Fever
Vital Signs / Physical Exam
Vital Signs
Vital Signs
Temp Pulse Resp BP Pulse Ox
97.6 F 65 16 134/79 95
04/01/24 07:54 04/01/24 08:59 04/01/24 08:59 04/01/24 07:54 04/01/24 08:59
Physical Exam
Constitutional: No Acute Distress, Chronically Ill and Non-toxic
Eyes: Sclera Anicteric
Cardiovascular: S1/S2; Negative S3/S4
Pulmonary: Non Labored
Gastrointestinal: Soft, Non Tender and Other (right NING in place; scant output)
Extremities: Negative Edema, Cyanosis or Erythema
Neurological: Awake and Alert
Psychological: Calm
Objective Data
Lab Data
Lab Results
04/01/24 07:55
04/01/24 07:55
PT 19.5 Sec (11.4-14.6) H 03/26/24 23:38
INR 1.62 03/26/24 23:38
APTT 37.9 Sec (23.4-35.0) H 03/26/24 23:38
Estimated Creat Clear 123 ml/min 04/01/24 07:55
Lactic Acid 1.3 mmol/L (0.7-2.0) 03/27/24 03:31
Total Bilirubin 0.8 mg/dl (0.2-1.3) 03/27/24 03:31
AST 43 U/L (17-59) 03/27/24 03:31
ALT 24 U/L (0-50) 03/27/24 03:31
Alkaline Phosphatase 109 U/L (38-126) 03/27/24 03:31
Most recent labs reviewed.
Micro Results:
03/27/24 14:17 Wound Culture - Final
Kidney - Right Escherichia coli
Gram Stain - Final
03/26/24 19:46 Urine Culture - Final
Urine Escherichia coli
03/26/24 19:46 Blood Culture - Final
Blood/Venous Escherichia coli
Gram Stain - Final
03/26/24 19:46 Blood Culture - Final
Blood/Venous Escherichia coli
Gram Stain - Final
03/27/24 03:31 MRSA Screen - Final
Nose No Methicillin Resistant Staphylococcus aureus isolated.
03/26/24 19:23 Influenza Types A & B (RICHA) - Final
Nasal Swab Negative for Influenza A & B, NAAT
Negative results must be combined with clinical observations
and patient history.
Nucleic Acid Amplification test (NAAT)performed on the
[employer] platform.
xzc
Wound/abscess/other Cult Final 03/27/2024
Many Escherichia coli
Organism 1 Escherichia coli
1. Escherichia coli
M.I.C. RX
--------- ---
Amoxicillin/Potas. Clavulanate <=8/4 S
Ampicillin <=8 S
Ampicillin/Sulbactam <=4/2 S
Aztreonam <=4 S
Cefazolin <=2 S
Ertapenem <=0.5 S
Ciprofloxacin <=0.25 S
Gentamicin <=2 S
Meropenem <=1 S
Piperacillin/Tazobactam <=8 S
Tetracycline <=4 S
Tobramycin <=2 S
Trimethoprim/Sulfamethoxazole <=2/38 S
Imaging:
03/30/2024 CT abdomen/pelvis with IV contrast: New percutaneous drain catheter at the posterior inferior margin of the exophytic abscess at the lateral aspect of the upper pole of the right kidney. There has been partial but incomplete drainage of
the abscess in the interval since the 03/26/2024 study, in size measures approximately 2.5 x 2.0 x 4.8 cm. Please see full dictation for additional detail.
03/26/2024 CT abdomen/pelvis without contrast: here is a mass which extends between the upper pole of the right kidney and the adjacent right lobe of the liver, appearing to invade both of these structures. A differential considerations are abscess
and neoplasia, or possibly a combination of these 2 processes. A right renal origin would seem most likely, but difficult to state with certainty. Several nephroliths involving the mid to lower right kidney. No evidence for right ureteral calculus.
Gallbladder somewhat poorly visualized because of motion artifact. The low-density mass extends close to the posterior margin of the gallbladder, but does not appear to invade or arise from the gallbladder. Please see official report for
additional detail. Film personally viewed.
[2024-04-01 15:23] LABS: Glucose - Point of Care 141 mg/dl (70-99)
[2024-04-01 15:30] VITALS: BP 121/64
--- NOTE | 2024-04-01 17:00 | PTCARENOTE ---
received from [facility]- transferred to bed. call lopez in reach- right NING drain intact with small amount of bloody drainage in tubing- dressing dry and intact- plan of care on going.
[2024-04-01 17:26] LABS: Glucose - Point of Care 85 mg/dl (70-99)
[2024-04-01] MEDS: MIRALAX 17 GRAMS PO (17:54)
[2024-04-01] MEDS: LIPITOR 40 MG PO (17:55)
[2024-04-01] MEDS: XARELTO 20 MG PO (17:55)
[2024-04-01] MEDS: DESYREL 75 MG PO (20:15)
[2024-04-01] MEDS: XALATAN OPHTHALMIC SOLUTION 1 DROP BOTH EYES (20:15)
[2024-04-01] MEDS: SENOKOT 8.6 MG PO (20:15)
[2024-04-01 21:42] LABS: Glucose - Point of Care 103 mg/dl (70-99)
[2024-04-01 23:53] VITALS: BP 118/57
[2024-04-02] MEDS: AMPICILLIN 108 MG IV ×4 (02:21→20:27)
[2024-04-02 03:26] LABS: Glucose - Point of Care 74 mg/dl (70-99)
[2024-04-02] MEDS: SYNTHROID 200 MCG PO (03:28)
[2024-04-02 07:30] VITALS: BP 128/92
[2024-04-02 07:39] LABS: Glucose - Point of Care 74 mg/dl (70-99)
[2024-04-02] MEDS: SPIRIVA RESPIMAT 2.5 MCG 2 PUFF INH (08:12)
[2024-04-02 08:21] LABS: Hematocrit 36.3 % (39.0-52.0); Hemoglobin 11.7 g/dL (13.0-18.0); Mean Corp Hgb Conc. 32.2 g/dL (33.0-37.0); Mean Corpuscular Hgb 28.6 pg (27.0-31.0); Mean Corpuscular Volume 88.8 fL (80.0-94.0); Red Blood Cell Count 4.09 10^6/uL (4.70-6.10); Red Cell Dist. Width 15.4 % (11.5-14.5); White Blood Cell Count 10.9 10^3/uL (4.8-10.8)
[2024-04-02 08:39] LABS: Blood Urea Nitrogen 12 mg/dl (9-20); Calcium 8.3 mg/dl (8.4-10.2); Carbon Dioxide 21 mmol/L (22-30); Chloride 107 mmol/L (98-107); Estimated Creatinine Clearance 123 ml/min; Glucose 69 mg/dl (70-99); Potassium 4.6 mmol/L (3.5-5.1); Sodium 138 mmol/L (135-145); eGFR > 60.00
[2024-04-02] MEDS: DUPHALAC/CHRONULAC 20 GRAMS PO (09:43)
[2024-04-02] MEDS: LASIX 20 MG PO (09:43)
[2024-04-02] MEDS: SENOKOT 8.6 MG PO ×2 (09:43→20:55)
[2024-04-02] MEDS: DEPAKOTE (12 HR RELEASE) 250 MG PO ×2 (09:43→20:55)
[2024-04-02] MEDS: WELLBUTRIN SR (12 hour sustained release) 150 MG PO (09:43)
[2024-04-02] MEDS: CLARITIN 10 MG PO (09:43)
[2024-04-02] MEDS: TYLENOL 650 MG PO ×3 (09:44→22:55)
[2024-04-02] MEDS: TOPROL XL 25 MG PO (09:44)
[2024-04-02] MEDS: ASPIR LOW (ENTERIC COATED) 81 MG PO (09:44)
[2024-04-02] MEDS: NEURONTIN 200 MG PO ×3 (09:44→22:55)
[2024-04-02] MEDS: PROSCAR 5 MG PO (09:45)
[2024-04-02] MEDS: FLOMAX 0.4 MG PO (09:45)
[2024-04-02] MEDS: MIRALAX 17 GRAMS PO (09:46)
[2024-04-02] MEDS: FLUSH (NSS) 2 FLUSH IV ×3 (09:46→20:34)
[2024-04-02] MEDS: NOVOLOG FLEXPEN-LOW RESISTANCE SC ×2 (09:47→18:08)
--- NOTE | 2024-04-02 09:49 | W.PN.HOSP.TC ---
Today's Communication/Plan
-
continue drain and monitor outputs, follow IR/Urology recs
Abx per ID
Assessment / Plan
Assessment / Plan
Assessment:
Septic shock
Acute pyelonephritis vs renal abscess
pansensitive E. Coli bacteremia from likely E. Coli UTI (pansensitive E. Coli confirmed from drain culture as well)
- pressors weaned off 03/28
- s/p IR drain 03/27
- repeat CT 03/30: partial but incomplete drainage of the abscess in the interval since the 03/26/2024 study
- repositioned with new drain 04/01
- follow cultures. continue Ampicillin, ID following.
- Urology and IR also following
GABRIEL in setting of sepsis
- improving with IVF/pressors
- holding GIULIANA
- continue Lasix
Hypokalemia
- replete prn
TME in setting of sepsis
- improving
- CT head no acute abnormality
assisted resident
Wheelchair-bound
Coronary artery disease
- continue ASA/Statin
unspecified type of Atrial fibrillation
- continue Xarelto/BB
Essential Hypertension
- holding GIULIANA
- continue Lasix
Hypothyroidism
- continue levothyroxine
Anxiety
Depression
- Continue bupropion, divalproex
- Hold trazodone
- Unclear why on tetrabenazine (no reported hx of [place])
Asthma
- continue Spiriva
Glaucoma
IBS
Kidney stones
Prostate cancer
- continue tamsulosin, finasteride
Arthritis
DVT ppx: Xarelto
Code: Full
Anticipated Discharge: > 48 hours
Subjective/Interval History
-
Date of Service: April 02, 2024
s/p IR exchange of renal abscess drain yesterday
scant output per RN today
Objective Data
-
Labs:
Laboratory Results
04/02/24 04/02/24
07:14 07:15
WBC 10.9 H
Hgb 11.7 L
Hct 36.3 L
Plt Count
Sodium 138
Potassium 4.6
Chloride 107
Carbon Dioxide 21 L
BUN 12
Creatinine 0.6 L
Glucose 69 L
Calcium 8.3 L
Vital Signs:
Vital Signs
Temp Pulse Resp BP Pulse Ox
97.6 F 79 16 128/92 99
04/02/24 07:30 04/02/24 08:14 04/02/24 08:14 04/02/24 07:30 04/02/24 08:14
I&O
04/01/24 04/02/24 04/03/24
06:59 06:59 06:59
Intake Total 874 / 874
Output Total 865 / 865 1025 / 1025
Balance -1025 / -1025
Physical Exam
-
General: No Apparent Distress
HEENT: Normocephalic and Atraumatic
Respiratory: Negative Wheezes
Cardiac: Regular Rhythm and S1/S2
GI: Soft
Genito-urinary: No Costovertebral Tender and Other (R renal abscess drain)
Neuro: AO x 3
Hematologic / Lymphatic: No Lymphadenopathy
Psych: Calm
Data Reviewed
-
Total Time Spent with Patient (in minutes): 42
Labs: Labs Reviewed by me
--- NOTE | 2024-04-02 10:53 | W.PN.URO.CBU ---
Today's Communication / Plan
-
REMOVE DRAIN IF MIN OUTPUT THIS WEEKEND AND OBSERVE FOR PAIN FEVR
Assessment / Plan
-
Right renal abscess SEEMINGLY RESOLVED MIN NING, OUTPIUT EVEN AFTER IRAD CHANGED IF AFEBRILE AND STABLE WOULD REMOVE DRAIN AND OBSERVE 24 HOURS
E. Coli cUTI
E. Coli bacteremia
Non-obstructing right renal stones
H/o prostate cancer s/p seed brachytherapy
03/27: s/p percutaneous right ayesha-renal drain placement 8Fr (IR)
WBC normalized
Cr WNL
UCx/BCx x2 => E. Coli
Abscess Cx => E. Coli
CTAP w/o IV contrast => mass extending between the upper pole of the right kidney and the adjacent right lobe of the liver, appearing to invade both of these structures. A differential considerations are abscess and neoplasia, or possibly a
combination of these 2 processes. A right renal origin would seem most likely, but difficult to state with certainty.
Right renal stones.
03/30: CTAP w/ IV contrast => percutaneous drainage catheter at the posterior inferior margin of the exophytic abscess at the lateral aspect of the upper pole the right kidney and the abscess is significantly decreased in size measuring approximately
2.5 x 2.0 x 4.8 cm with small volume internal gas.
3 non-obstructing right renal stones.
Diagnosis
-
Date of Service: April 02, 2024
-
Patient Diagnosis:
Post Op Day:
Patient Diagnosis:
Right renal abscess
E. Coli cUTI
E. Coli bacteremia
Non-obstructing right renal stones
H/o prostate cancer s/p seed brachytherapy
03/27: s/p percutaneous right ayesha-renal drain placement 8Fr (IR)
Subjective
-
no complaints
Objective
-
Vital Signs
Temp Pulse Resp BP Pulse Ox
97.6 F 79 16 128/92 99
04/02/24 07:30 04/02/24 08:14 04/02/24 08:14 04/02/24 07:30 04/02/24 08:14
Intake and Output
04/01/24 04/02/24 04/03/24
06:59 06:59 06:59
Intake Total 874 / 874
Output Total 865 / 865 1025 / 1025
Balance -1025 / -1025
Intake:
Oral fluids 540 / 540
IV piggybacks 324 / 324
Amount instilled into Drain (
Total)
Right Back Luke-Hammer Placed
in IR
Output:
Drain Output (Total)
Right Back Luke-Hammer Placed
in IR
Urine, Voided 850 / 850 1025 / 1025
Other:
How many times incontinent 2
SATURATED amount urine
Laboratory Results
04/02/24 07:15
04/02/24 07:14
Review of Systems
-
: No Symptoms
Physical Exam
-
General - well developed, well nourished, no acute distress
Chest - clear bilaterally
Abdomen - soft, non-tender, positive bowel sounds, no CVAT, no incisional pain or distention
Genitalia - normal
Rectal - normal
Skin - warm & dry with no rash
Neuro - AOx3, no motor deficits
Extremities - no clubbing, no cyanosis, no edema
Incision - clean, dry
Dressing - clean, dry, intact
Care Review
Data Reviewed
Discussed with: Hospitalist and Nursing
CT Scan: Image Pers Reviewed
[2024-04-02 11:50] LABS: Glucose - Point of Care 163 mg/dl (70-99)
[2024-04-02] MEDS: NOVOLOG FLEXPEN-LOW RESISTANCE 1 UNITS SC (12:43)
--- NOTE | 2024-04-02 14:27 | W.PN.ID1 ---
Date of Service
Date of Service: April 02, 2024
Today's Communication
Continue antibiotics.
Assessment / Plan
E. coli bacteremia
Right renal abscess
Complicated urinary tract infection
Leukocytosis
Fever
Clinical sepsis
CAD
A-fib
Anxiety/depression
Asthma
Glaucoma
IBS
HTN
Hypothyroidism
Hx prostate CA
Recommendations:
Continue ampicillin; transition to oral amoxicillin at time of discharge.
Await evaluation of collection and tube check by IR.
Trend white count.
Monitor fever curve.
Follow drain output.
����������������������������������������������������������
Chief Complaint
-: UTI, Bacteremia and Other (Right renal abscess)
Subjective / Review of Systems
Review of Systems: No Fever
Vital Signs / Physical Exam
Vital Signs
Vital Signs
Temp Pulse Resp BP Pulse Ox
97.6 F 79 16 128/92 99
04/02/24 07:30 04/02/24 08:14 04/02/24 08:14 04/02/24 07:30 04/02/24 08:14
Physical Exam
Constitutional: No Acute Distress, Comfortable and Non-toxic
Eyes: Sclera Anicteric
Cardiovascular: S1/S2; Negative S3/S4
Pulmonary: Non Labored
Gastrointestinal: Soft, Non Tender and Other (right NING in place; scant output)
Extremities: Negative Edema, Cyanosis or Erythema
Neurological: Awake and Alert
Psychological: Calm
Objective Data
Lab Data
Lab Results
04/02/24 07:15
04/02/24 07:14
PT 19.5 Sec (11.4-14.6) H 03/26/24 23:38
INR 1.62 03/26/24 23:38
APTT 37.9 Sec (23.4-35.0) H 03/26/24 23:38
Estimated Creat Clear 123 ml/min 04/02/24 07:14
Lactic Acid 1.3 mmol/L (0.7-2.0) 03/27/24 03:31
Total Bilirubin 0.8 mg/dl (0.2-1.3) 03/27/24 03:31
AST 43 U/L (17-59) 03/27/24 03:31
ALT 24 U/L (0-50) 03/27/24 03:31
Alkaline Phosphatase 109 U/L (38-126) 03/27/24 03:31
Most recent labs reviewed.
Micro Results:
03/27/24 14:17 Wound Culture - Final
Kidney - Right Escherichia coli
Gram Stain - Final
03/26/24 19:46 Urine Culture - Final
Urine Escherichia coli
03/26/24 19:46 Blood Culture - Final
Blood/Venous Escherichia coli
Gram Stain - Final
03/26/24 19:46 Blood Culture - Final
Blood/Venous Escherichia coli
Gram Stain - Final
03/27/24 03:31 MRSA Screen - Final
Nose No Methicillin Resistant Staphylococcus aureus isolated.
03/26/24 19:23 Influenza Types A & B (RICHA) - Final
Nasal Swab Negative for Influenza A & B, NAAT
Negative results must be combined with clinical observations
and patient history.
Nucleic Acid Amplification test (NAAT)performed on the
[facility] platform.
xzc
Wound/abscess/other Cult Final 03/27/2024
Many Escherichia coli
Organism 1 Escherichia coli
1. Escherichia coli
M.I.C. RX
--------- ---
Amoxicillin/Potas. Clavulanate <=8/4 S
Ampicillin <=8 S
Ampicillin/Sulbactam <=4/2 S
Aztreonam <=4 S
Cefazolin <=2 S
Ertapenem <=0.5 S
Ciprofloxacin <=0.25 S
Gentamicin <=2 S
Meropenem <=1 S
Piperacillin/Tazobactam <=8 S
Tetracycline <=4 S
Tobramycin <=2 S
Trimethoprim/Sulfamethoxazole <=2/38 S
Imaging:
03/30/2024 CT abdomen/pelvis with IV contrast: New percutaneous drain catheter at the posterior inferior margin of the exophytic abscess at the lateral aspect of the upper pole of the right kidney. There has been partial but incomplete drainage of
the abscess in the interval since the 03/26/2024 study, in size measures approximately 2.5 x 2.0 x 4.8 cm. Please see full dictation for additional detail.
03/26/2024 CT abdomen/pelvis without contrast: here is a mass which extends between the upper pole of the right kidney and the adjacent right lobe of the liver, appearing to invade both of these structures. A differential considerations are abscess
and neoplasia, or possibly a combination of these 2 processes. A right renal origin would seem most likely, but difficult to state with certainty. Several nephroliths involving the mid to lower right kidney. No evidence for right ureteral calculus.
Gallbladder somewhat poorly visualized because of motion artifact. The low-density mass extends close to the posterior margin of the gallbladder, but does not appear to invade or arise from the gallbladder. Please see official report for
additional detail. Film personally viewed.
[2024-04-02 15:30] VITALS: BP 134/89
[2024-04-02 16:52] LABS: Glucose - Point of Care 108 mg/dl (70-99)
[2024-04-02] MEDS: LIPITOR 40 MG PO (18:08)
[2024-04-02] MEDS: XARELTO 20 MG PO (18:08)
[2024-04-02] MEDS: DUPHALAC/CHRONULAC PO (20:54)
[2024-04-02 21:53] LABS: Glucose - Point of Care 88 mg/dl (70-99)
[2024-04-02] MEDS: DESYREL 75 MG PO (22:55)
[2024-04-02] MEDS: XALATAN OPHTHALMIC SOLUTION 1 DROP BOTH EYES (22:58)
[2024-04-02 23:52] VITALS: BP 150/88
[2024-04-03] MEDS: AMPICILLIN 108 MG IV ×4 (02:53→20:02)
[2024-04-03 02:58] LABS: Glucose - Point of Care 86 mg/dl (70-99)
[2024-04-03] MEDS: SYNTHROID 200 MCG PO (05:40)
[2024-04-03 07:24] LABS: Hematocrit 36.3 % (39.0-52.0); Hemoglobin 11.4 g/dL (13.0-18.0); Mean Corp Hgb Conc. 31.4 g/dL (33.0-37.0); Mean Corpuscular Hgb 28.8 pg (27.0-31.0); Mean Corpuscular Volume 91.7 fL (80.0-94.0); Red Blood Cell Count 3.96 10^6/uL (4.70-6.10); Red Cell Dist. Width 16.1 % (11.5-14.5); White Blood Cell Count 9.8 10^3/uL (4.8-10.8)
[2024-04-03 07:25] LABS: Blood Urea Nitrogen 10 mg/dl (9-20); Calcium 8.4 mg/dl (8.4-10.2); Carbon Dioxide 27 mmol/L (22-30); Chloride 104 mmol/L (98-107); Estimated Creatinine Clearance 123 ml/min; Glucose 74 mg/dl (70-99); Potassium 4.5 mmol/L (3.5-5.1); Sodium 139 mmol/L (135-145); eGFR > 60.00
[2024-04-03 07:51] LABS: Glucose - Point of Care 64 mg/dl (70-99)
[2024-04-03 07:55] VITALS: BP 130/71
[2024-04-03 07:56] LABS: Cortisol, Random 14.4 ug/dl
[2024-04-03] MEDS: SPIRIVA RESPIMAT 2.5 MCG 2 PUFF INH (08:41)
[2024-04-03 08:49] LABS: Glucose - Point of Care 77 mg/dl (70-99)
[2024-04-03] MEDS: SENOKOT 8.6 MG PO (09:26)
[2024-04-03] MEDS: NOVOLOG FLEXPEN-LOW RESISTANCE SC ×3 (09:26→16:36)
[2024-04-03] MEDS: TYLENOL 650 MG PO ×3 (09:29→20:59)
[2024-04-03] MEDS: NEURONTIN 200 MG PO ×3 (09:29→20:59)
[2024-04-03] MEDS: MIRALAX 17 GRAMS PO (09:29)
[2024-04-03] MEDS: LASIX 20 MG PO (09:30)
[2024-04-03] MEDS: WELLBUTRIN SR (12 hour sustained release) 150 MG PO (09:30)
[2024-04-03] MEDS: TOPROL XL 25 MG PO (09:30)
[2024-04-03] MEDS: ASPIR LOW (ENTERIC COATED) 81 MG PO (09:31)
[2024-04-03] MEDS: PROSCAR 5 MG PO (09:31)
[2024-04-03] MEDS: CLARITIN 10 MG PO (09:31)
[2024-04-03] MEDS: FLOMAX 0.4 MG PO (09:31)
[2024-04-03] MEDS: DEPAKOTE (12 HR RELEASE) 250 MG PO ×2 (09:32→20:02)
--- NOTE | 2024-04-03 09:48 | W.PN.URO.CBU ---
Today's Communication / Plan
-
TRY AND REMOVE NING AND OBSERVE FOR PAIN FEVER FOR 24 HOURS
Assessment / Plan
-
Right renal abscess SEEMINGLY RESOLVED MIN NING, OUTPIUT EVEN AFTER IRAD CHANGED IF AFEBRILE AND STABLE WOULD REMOVE DRAIN AND OBSERVE 24 HOURS
E. Coli cUTI
E. Coli bacteremia
Non-obstructing right renal stones
H/o prostate cancer s/p seed brachytherapy
03/27: s/p percutaneous right ayesha-renal drain placement 8Fr (IR)
WBC normalized
Cr WNL
UCx/BCx x2 => E. Coli
Abscess Cx => E. Coli
CTAP w/o IV contrast => mass extending between the upper pole of the right kidney and the adjacent right lobe of the liver, appearing to invade both of these structures. A differential considerations are abscess and neoplasia, or possibly a
combination of these 2 processes. A right renal origin would seem most likely, but difficult to state with certainty.
Right renal stones.
03/30: CTAP w/ IV contrast => percutaneous drainage catheter at the posterior inferior margin of the exophytic abscess at the lateral aspect of the upper pole the right kidney and the abscess is significantly decreased in size measuring approximately
2.5 x 2.0 x 4.8 cm with small volume internal gas.
3 non-obstructing right renal stones.
Diagnosis
-
Date of Service: April 03, 2024
-
Patient Diagnosis:
Post Op Day:
Patient Diagnosis:
Post Op Day:
Patient Diagnosis:
Right renal abscess
E. Coli cUTI
E. Coli bacteremia
Non-obstructing right renal stones
H/o prostate cancer s/p seed brachytherapy
03/27: s/p percutaneous right ayesha-renal drain placement 8Fr (IR)
Subjective
-
MIN J=]DRAINAGE PT WITHOUT PAIN COMPLAINT
Objective
-
Vital Signs
Temp Pulse Resp BP Pulse Ox
97.5 F 68 16 130/71 94
04/03/24 07:55 04/03/24 08:45 04/03/24 08:45 04/03/24 07:55 04/03/24 08:45
Intake and Output
04/02/24 04/03/24 04/04/24
06:59 06:59 06:59
Intake Total 570 / 570
Output Total 1025 / 1025 426 / 426
Balance -1025 / -1025 144 / 144
Intake:
Oral fluids 360 / 360
IV piggybacks 200 / 200
Amount instilled into Drain (
Total)
Right Back Luke-Hammer Placed
in IR
Output:
Drain Output (Total)
Right Back Luke-Hammer Placed
in IR
Urine, Voided 1025 / 1025 425 / 425
Other:
How many times incontinent 2 5
SATURATED amount urine
Laboratory Results
04/03/24 06:28
04/03/24 06:28
Review of Systems
-
: No Symptoms
Physical Exam
-
General - well developed, well nourished, no acute distress
Chest - clear bilaterally
Abdomen - soft, non-tender, positive bowel sounds, no CVAT, no incisional pain or distention
Genitalia - normal
Rectal - normal
Skin - warm & dry with no rash
Neuro - AOx3, no motor deficits
Extremities - no clubbing, no cyanosis, no edema
Incision - clean, dry
Dressing - clean, dry, intact
Care Review
Data Reviewed
Discussed with: Hospitalist and Nursing
--- NOTE | 2024-04-03 10:20 | CM ---
Patient seen at bedside. Plan is unchanged return to SNF at [facility] when medically appropriate. CM will continue to follow for discharge planning needs.
Plan; return to SNF; when medically appropriate.
--- NOTE | 2024-04-03 10:42 | W.PN.HOSP.TC ---
Today's Communication/Plan
-
possible LT4 dose adjustment - will d/w pharmacy. TSH >10
IRAD consult for drain repo vs removal 04/04
Assessment / Plan
Assessment / Plan
Assessment:
Septic shock
Acute pyelonephritis vs renal abscess
pansensitive E. Coli bacteremia from likely E. Coli UTI (pansensitive E. Coli confirmed from drain culture as well)
- pressors weaned off 03/28
- s/p IR drain 03/27
- repeat CT 03/30: partial but incomplete drainage of the abscess in the interval since the 03/26/2024 study
- repositioned with new drain 04/01; output scant to none. IR to evaluate for removal tomorrow
- follow cultures. continue Ampicillin, ID following. Eventual transition to Amoxil at discharge.
- Urology and IR also following
GABRIEL in setting of sepsis
- improving with IVF/pressors
- continue GIULIANA
- continue Lasix
Hypokalemia
- replete prn
TME in setting of sepsis
- improving
- CT head no acute abnormality
prison resident
Wheelchair-bound
Coronary artery disease
- continue ASA/Statin
unspecified type of Atrial fibrillation
- continue Xarelto/BB
Essential Hypertension
- continue GIULIANA
- continue Lasix
Hypothyroidism
- continue levothyroxine 200 mcg daily
- TSH>10; will d/w pharmacy on dosing options
Hypoglycemia
- likely related to hypothyroidism - see above
- not on insulin/hypoglycemia agents
- oral intake adequate
- AM cortisol ok
Anxiety
Depression
- Continue bupropion, divalproex
- Hold trazodone
- Unclear why on tetrabenazine (no reported hx of [place])
Asthma
- continue Spiriva
Glaucoma
IBS
Kidney stones
Prostate cancer
- continue tamsulosin, finasteride
Arthritis
DVT ppx: Xarelto
Code: Full
Anticipated Discharge: > 48 hours
Subjective/Interval History
-
Date of Service: April 03, 2024
drain with minimal to 0 output per RN
no complaints
Objective Data
-
Labs:
Laboratory Results
04/03/24
06:28
WBC 9.8
Hgb 11.4 L
Hct 36.3 L
Plt Count
Sodium 139
Potassium 4.5
Chloride 104
Carbon Dioxide 27
BUN 10
Creatinine 0.6 L
Glucose 74
Calcium 8.4
Vital Signs:
Vital Signs
Temp Pulse Resp BP Pulse Ox
97.5 F 68 16 130/71 94
04/03/24 07:55 04/03/24 08:45 04/03/24 08:45 04/03/24 07:55 04/03/24 08:45
I&O
04/02/24 04/03/24 04/04/24
06:59 06:59 06:59
Intake Total 570 / 570
Output Total 1025 / 1025 426 / 426
Balance -1025 / -1025 144 / 144
Physical Exam
-
General: No Apparent Distress
HEENT: Normocephalic and Atraumatic
Respiratory: Negative Wheezes
Cardiac: Regular Rhythm and S1/S2
GI: Soft
Genito-urinary: No Costovertebral Tender and Other (R renal abscess drain- no output)
Neuro: AO x 3
Psych: Calm
Data Reviewed
-
Total Time Spent with Patient (in minutes): 41
Labs: Labs Reviewed by me
[2024-04-03] MEDS: ZESTRIL 5 MG PO (12:26)
[2024-04-03 12:49] LABS: Glucose - Point of Care 70 mg/dl (70-99)
[2024-04-03 15:55] VITALS: BP 104/66
[2024-04-03 16:17] LABS: Glucose - Point of Care 99 mg/dl (70-99)
[2024-04-03] MEDS: LIPITOR 40 MG PO (17:13)
[2024-04-03] MEDS: XARELTO 20 MG PO (17:13)
[2024-04-03] MEDS: SENOKOT PO (19:57)
[2024-04-03] MEDS: FLUSH (NSS) 1 FLUSH IV (20:02)
[2024-04-03] MEDS: DESYREL 75 MG PO (20:59)
[2024-04-03] MEDS: XALATAN OPHTHALMIC SOLUTION 1 DROP BOTH EYES (21:03)
[2024-04-03 21:48] LABS: Glucose - Point of Care 100 mg/dl (70-99)
[2024-04-03 23:55] VITALS: BP 130/64
[2024-04-04] MEDS: AMPICILLIN 108 MG IV ×4 (02:15→20:41)
[2024-04-04 03:43] LABS: Glucose - Point of Care 84 mg/dl (70-99)
[2024-04-04 04:57] LABS: Hematocrit 31.4 % (39.0-52.0); Mean Corp Hgb Conc. 31.8 g/dL (33.0-37.0); Mean Corpuscular Hgb 29.2 pg (27.0-31.0); Mean Corpuscular Volume 91.5 fL (80.0-94.0); Mean Platelet Volume 10.7 fL (7.4-10.4); Platelet Count 219 10^3/uL (130-400); Red Blood Cell Count 3.43 10^6/uL (4.70-6.10); Red Cell Dist. Width 16.2 % (11.5-14.5); White Blood Cell Count 8.3 10^3/uL (4.8-10.8)
[2024-04-04 05:16] LABS: Blood Urea Nitrogen 14 mg/dl (9-20); Calcium 8.1 mg/dl (8.4-10.2); Carbon Dioxide 29 mmol/L (22-30); Chloride 103 mmol/L (98-107); Estimated Creatinine Clearance 123 ml/min; Glucose 87 mg/dl (70-99); Potassium 4.4 mmol/L (3.5-5.1); Sodium 137 mmol/L (135-145); eGFR > 60.00
[2024-04-04] MEDS: SYNTHROID 25 MCG PO (05:47)
[2024-04-04] MEDS: SYNTHROID 200 MCG PO (05:47)
[2024-04-04] MEDS: SPIRIVA RESPIMAT 2.5 MCG 2 PUFF INH (07:18)
[2024-04-04 08:07] VITALS: BP 129/70
[2024-04-04 08:23] LABS: Glucose - Point of Care 81 mg/dl (70-99)
[2024-04-04] MEDS: NOVOLOG FLEXPEN-LOW RESISTANCE SC ×3 (08:34→16:58)
[2024-04-04] MEDS: ASPIR LOW (ENTERIC COATED) 81 MG PO (10:01)
[2024-04-04] MEDS: FLOMAX 0.4 MG PO (10:01)
[2024-04-04] MEDS: DEPAKOTE (12 HR RELEASE) 250 MG PO ×2 (10:01→20:42)
[2024-04-04] MEDS: WELLBUTRIN SR (12 hour sustained release) 150 MG PO (10:01)
[2024-04-04] MEDS: NEURONTIN 200 MG PO ×3 (10:01→23:05)
[2024-04-04] MEDS: TOPROL XL 25 MG PO (10:02)
[2024-04-04] MEDS: ZESTRIL 5 MG PO (10:02)
[2024-04-04] MEDS: PROSCAR 5 MG PO (10:02)
[2024-04-04] MEDS: LASIX 20 MG PO (10:02)
[2024-04-04] MEDS: CLARITIN 10 MG PO (10:02)
[2024-04-04] MEDS: SENOKOT PO ×2 (10:04→19:22)
[2024-04-04] MEDS: MIRALAX 17 GRAMS PO (10:05)
[2024-04-04] MEDS: TYLENOL 650 MG PO ×3 (10:07→23:07)
[2024-04-04 11:03] VITALS: BP 100/59; BP_SYST 70
--- NOTE | 2024-04-04 11:12 | PN.IRAD.UPD ---
Update Note - IRAD
- -
Cleaned right sided Abscess drain with chloraprep and removed. Site dressed with gauze and a primapore.
Bora Lorenz RT(R)()
[2024-04-04 11:16] VITALS: BP 101/66; BP_SYST 80
[2024-04-04 11:20] VITALS: BP 101/66
--- NOTE | 2024-04-04 11:54 | W.PN.ID1 ---
Date of Service
Date of Service: April 04, 2024
Today's Communication
Continue antibiotics. See below�
Assessment / Plan
E. coli bacteremia
Right renal abscess
Complicated urinary tract infection
Leukocytosis
Fever
Clinical sepsis
CAD
A-fib
Anxiety/depression
Asthma
Glaucoma
IBS
HTN
Hypothyroidism
Hx prostate CA
Recommendations:
Continue ampicillin (d#10 of abx tx); transition to oral amoxicillin 500 mg TID at time of discharge, to continue through 04/11/24
����������������������������������������������������������
Chief Complaint
-: UTI, Bacteremia and Other (Right renal abscess)
Subjective / Review of Systems
Review of Systems: No Fever and No Chills
Vital Signs / Physical Exam
Vital Signs
Vital Signs
Temp Pulse Resp BP Pulse Ox
98.1 F 80 15 101/66 96
04/04/24 08:07 04/04/24 11:20 04/04/24 11:20 04/04/24 11:20 04/04/24 11:16
Physical Exam
Constitutional: No Acute Distress, Comfortable and Non-toxic
Eyes: Sclera Anicteric
Cardiovascular: S1/S2; Negative S3/S4
Pulmonary: Non Labored
Gastrointestinal: Soft, Non Tender and Other (right NING removed)
Extremities: Negative Edema, Cyanosis or Erythema
Neurological: Awake and Alert
Psychological: Calm
Objective Data
Lab Data
Lab Results
04/04/24 04:31
04/04/24 04:31
PT 19.5 Sec (11.4-14.6) H 03/26/24 23:38
INR 1.62 03/26/24 23:38
APTT 37.9 Sec (23.4-35.0) H 03/26/24 23:38
Estimated Creat Clear 123 ml/min 04/04/24 04:31
Lactic Acid 1.3 mmol/L (0.7-2.0) 03/27/24 03:31
Total Bilirubin 0.8 mg/dl (0.2-1.3) 03/27/24 03:31
AST 43 U/L (17-59) 03/27/24 03:31
ALT 24 U/L (0-50) 03/27/24 03:31
Alkaline Phosphatase 109 U/L (38-126) 03/27/24 03:31
Most recent labs reviewed.
Micro Results:
03/27/24 14:17 Wound Culture - Final
Kidney - Right Escherichia coli
Gram Stain - Final
03/26/24 19:46 Urine Culture - Final
Urine Escherichia coli
03/26/24 19:46 Blood Culture - Final
Blood/Venous Escherichia coli
Gram Stain - Final
03/26/24 19:46 Blood Culture - Final
Blood/Venous Escherichia coli
Gram Stain - Final
03/27/24 03:31 MRSA Screen - Final
Nose No Methicillin Resistant Staphylococcus aureus isolated.
03/26/24 19:23 Influenza Types A & B (RICHA) - Final
Nasal Swab Negative for Influenza A & B, NAAT
Negative results must be combined with clinical observations
and patient history.
Nucleic Acid Amplification test (NAAT)performed on the
[employer] platform.
xzc
Wound/abscess/other Cult Final 03/27/2024
Many Escherichia coli
Organism 1 Escherichia coli
1. Escherichia coli
M.I.C. RX
--------- ---
Amoxicillin/Potas. Clavulanate <=8/4 S
Ampicillin <=8 S
Ampicillin/Sulbactam <=4/2 S
Aztreonam <=4 S
Cefazolin <=2 S
Ertapenem <=0.5 S
Ciprofloxacin <=0.25 S
Gentamicin <=2 S
Meropenem <=1 S
Piperacillin/Tazobactam <=8 S
Tetracycline <=4 S
Tobramycin <=2 S
Trimethoprim/Sulfamethoxazole <=2/38 S
Imaging:
03/30/2024 CT abdomen/pelvis with IV contrast: New percutaneous drain catheter at the posterior inferior margin of the exophytic abscess at the lateral aspect of the upper pole of the right kidney. There has been partial but incomplete drainage of
the abscess in the interval since the 03/26/2024 study, in size measures approximately 2.5 x 2.0 x 4.8 cm. Please see full dictation for additional detail.
03/26/2024 CT abdomen/pelvis without contrast: here is a mass which extends between the upper pole of the right kidney and the adjacent right lobe of the liver, appearing to invade both of these structures. A differential considerations are abscess
and neoplasia, or possibly a combination of these 2 processes. A right renal origin would seem most likely, but difficult to state with certainty. Several nephroliths involving the mid to lower right kidney. No evidence for right ureteral calculus.
Gallbladder somewhat poorly visualized because of motion artifact. The low-density mass extends close to the posterior margin of the gallbladder, but does not appear to invade or arise from the gallbladder. Please see official report for
additional detail. Film personally viewed.
[2024-04-04 12:31] LABS: Glucose - Point of Care 101 mg/dl (70-99)
--- NOTE | 2024-04-04 12:36 | W.PN.HOSP.TC ---
Today's Communication/Plan
-
s/p drain removal
Dc planning in 24 hours to SNF
Assessment / Plan
Assessment / Plan
Assessment:
Septic shock
Acute pyelonephritis vs renal abscess
pansensitive E. Coli bacteremia from likely E. Coli UTI (pansensitive E. Coli confirmed from drain culture as well)
- pressors weaned off 03/28
- s/p IR drain 03/27
- repeat CT 03/30: partial but incomplete drainage of the abscess in the interval since the 03/26/2024 study
- repositioned with new drain 04/01; output scant to none. drain removed 04/04.
- follow cultures. continue Ampicillin, ID following. Eventual transition to Amoxil 500mg TID through 04/11/24
- Urology and IR also following
GABRIEL in setting of sepsis
- improving with IVF/pressors
- continue GIULIANA
- continue Lasix
Hypokalemia
- replete prn
TME in setting of sepsis
- improving
- CT head no acute abnormality
[facility] resident
Wheelchair-bound
Coronary artery disease
- continue ASA/Statin
unspecified type of Atrial fibrillation
- continue Xarelto/BB
Essential Hypertension
- continue GIULIANA
- continue Lasix
Hypothyroidism
- continue levothyroxine 225 mcg daily (increased from 200 mcg due to TSH >10)
Hypoglycemia
- likely related to hypothyroidism - see above
- not on insulin/hypoglycemia agents
- oral intake adequate
- AM cortisol ok
Anxiety
Depression
- Continue bupropion, divalproex
- Hold trazodone
- Unclear why on tetrabenazine (no reported hx of [place])
Asthma
- continue Spiriva
Glaucoma
IBS
Kidney stones
Prostate cancer
- continue tamsulosin, finasteride
Arthritis
DVT ppx: Xarelto
Code: Full
Anticipated Discharge: Within 24 hours
Subjective/Interval History
-
Date of Service: April 04, 2024
resting comfortably
drain output essential 0
Objective Data
-
Labs:
Laboratory Results
04/04/24
04:31
WBC 8.3
Hgb 10.0 L
Hct 31.4 L
Plt Count 219 D
Sodium 137
Potassium 4.4
Chloride 103
Carbon Dioxide 29
BUN 14
Creatinine 0.6 L
Glucose 87
Calcium 8.1 L
Vital Signs:
Vital Signs
Temp Pulse Resp BP Pulse Ox
98.1 F 80 15 101/66 96
04/04/24 08:07 04/04/24 11:20 04/04/24 11:20 04/04/24 11:20 04/04/24 11:16
I&O
04/03/24 04/04/24 04/05/24
06:59 06:59 06:59
Intake Total 570 / 570 730 / 730
Output Total 426 / 426
Balance 144 / 144 730 / 730
Physical Exam
-
General: No Apparent Distress
HEENT: Normocephalic and Atraumatic
Respiratory: Negative Wheezes
Cardiac: Regular Rhythm and S1/S2
GI: Soft and Nontender
Genito-urinary: No Costovertebral Tender
Neuro: AO x 3
Hematologic / Lymphatic: No Lymphadenopathy
Psych: Calm
Data Reviewed
-
Total Time Spent with Patient (in minutes): 42
Labs: Labs Reviewed by me
--- NOTE | 2024-04-04 12:44 | W.PN.URO.CBU ---
Today's Communication / Plan
-
follow for fevr chills and pain once talia is out call md if increae pain fevr chill
Assessment / Plan
-
Right renal abscess SEEMINGLY RESOLVED MIN TALIA, OUTPIUT EVEN AFTER IRAD CHANGED IF AFEBRILE AND STABLE WOULD REMOVE DRAIN AND OBSERVE 24 HOURS
E. Coli cUTI
E. Coli bacteremia
Non-obstructing right renal stones
H/o prostate cancer s/p seed brachytherapy
03/27: s/p percutaneous right ayesha-renal drain placement 8Fr (IR)
WBC normalized
Cr WNL
UCx/BCx x2 => E. Coli
Abscess Cx => E. Coli
CTAP w/o IV contrast => mass extending between the upper pole of the right kidney and the adjacent right lobe of the liver, appearing to invade both of these structures. A differential considerations are abscess and neoplasia, or possibly a
combination of these 2 processes. A right renal origin would seem most likely, but difficult to state with certainty.
Right renal stones.
03/30: CTAP w/ IV contrast => percutaneous drainage catheter at the posterior inferior margin of the exophytic abscess at the lateral aspect of the upper pole the right kidney and the abscess is significantly decreased in size measuring approximately
2.5 x 2.0 x 4.8 cm with small volume internal gas.
3 non-obstructing right renal stones.
Diagnosis
-
Date of Service: April 04, 2024
-
Patient Diagnosis:
Post Op Day:
Patient Diagnosis:
Post Op Day:
Patient Diagnosis:
Post Op Day:
Patient Diagnosis:
Right renal abscess
E. Coli cUTI
E. Coli bacteremia
Non-obstructing right renal stones
H/o prostate cancer s/p seed brachytherapy
03/27: s/p percutaneous right ayesha-renal drain placement 8Fr (IR)
Subjective
-
feels well
Objective
-
Vital Signs
Temp Pulse Resp BP Pulse Ox
98.1 F 80 15 101/66 96
04/04/24 08:07 04/04/24 11:20 04/04/24 11:20 04/04/24 11:20 04/04/24 11:16
Intake and Output
04/03/24 04/04/24 04/05/24
06:59 06:59 06:59
Intake Total 570 / 570 730 / 730
Output Total 426 / 426
Balance 144 / 144 730 / 730
Intake:
Oral fluids 360 / 360 720 / 720
IV piggybacks 200 / 200
Amount instilled into Drain (
Total)
Right Back Luke-Hammer Placed
in IR
Output:
Drain Output (Total)
Right Back Luke-Hammer Placed
in IR
Urine, Voided 425 / 425
Other:
How many times incontinent 5 2 2
SATURATED amount urine
Laboratory Results
04/04/24 04:31
04/04/24 04:31
Review of Systems
-
: Flank Pain
Physical Exam
-
General - well developed, well nourished, no acute distress
Chest - clear bilaterally
Abdomen - soft, non-tender, positive bowel sounds, no CVAT, no incisional pain or distention
Genitalia - normal
Rectal - normal
Skin - warm & dry with no rash
Neuro - AOx3, no motor deficits
Extremities - no clubbing, no cyanosis, no edema
Incision - clean, dry
Dressing - clean, dry, intact
Care Review
Data Reviewed
Discussed with: Hospitalist
--- NOTE | 2024-04-04 16:09 | CM ---
Chart reviewed and patient to return to [facility] when stable. Possible transfer tomorrow.
Plan; Patient to return to [facility] when stable.
Report: [phone]
[2024-04-04 16:48] VITALS: BP 113/72
[2024-04-04 16:57] LABS: Glucose - Point of Care 106 mg/dl (70-99)
[2024-04-04] MEDS: LIPITOR 40 MG PO (17:25)
[2024-04-04] MEDS: XARELTO 20 MG PO (17:25)
[2024-04-04] MEDS: FLUSH (NSS) 2 FLUSH IV (20:42)
[2024-04-04 22:00] LABS: Glucose - Point of Care 90 mg/dl (70-99)
[2024-04-04] MEDS: XALATAN OPHTHALMIC SOLUTION 1 DROP BOTH EYES (23:07)
[2024-04-04] MEDS: DESYREL 75 MG PO (23:07)
[2024-04-04 23:44] VITALS: BP 119/68
[2024-04-05] MEDS: AMPICILLIN 108 MG IV ×4 (02:01→19:19)
[2024-04-05] MEDS: FLUSH (NSS) 2 FLUSH IV (02:02)
[2024-04-05] MEDS: SYNTHROID 25 MCG PO (05:42)
[2024-04-05] MEDS: SYNTHROID 200 MCG PO (05:42)
[2024-04-05] MEDS: SPIRIVA RESPIMAT 2.5 MCG 2 PUFF INH (06:08)
[2024-04-05 07:35] VITALS: BP 123/78
[2024-04-05 08:45] LABS: Glucose - Point of Care 72 mg/dl (70-99)
[2024-04-05] MEDS: ASPIR LOW (ENTERIC COATED) 81 MG PO (08:51)
[2024-04-05] MEDS: NEURONTIN 200 MG PO ×3 (08:51→21:44)
[2024-04-05] MEDS: MIRALAX 17 GRAMS PO (08:51)
[2024-04-05] MEDS: CLARITIN 10 MG PO (08:51)
[2024-04-05] MEDS: WELLBUTRIN SR (12 hour sustained release) 150 MG PO (08:51)
[2024-04-05] MEDS: TYLENOL 650 MG PO ×3 (08:52→21:45)
[2024-04-05] MEDS: TOPROL XL 25 MG PO (08:52)
[2024-04-05] MEDS: ZESTRIL 5 MG PO (08:52)
[2024-04-05] MEDS: DEPAKOTE (12 HR RELEASE) 250 MG PO ×2 (08:53→19:19)
[2024-04-05] MEDS: LASIX 20 MG PO (08:53)
[2024-04-05] MEDS: FLOMAX 0.4 MG PO (08:53)
[2024-04-05] MEDS: PROSCAR 5 MG PO (08:53)
[2024-04-05] MEDS: SENOKOT 8.6 MG PO ×2 (08:53→19:19)
[2024-04-05] MEDS: NOVOLOG FLEXPEN-LOW RESISTANCE SC ×3 (08:54→17:46)
--- NOTE | 2024-04-05 09:29 | W.PN.UPDATE ---
Update Note
Progress Note Update
04/04: s/p IR drain removal.
Remains afebrile and hemodynamically stable.
Plan:
- Repeat CT imaging (w/ IV contrast) this admission w/o discernible right renal mass - right renal abscess noted only
- Continue PO Amoxicillin through 04/11 per ID
- F/U w/ Urology as outpatient in 4 weeks
--- NOTE | 2024-04-05 11:47 | W.PN.HOSP.TC ---
Today's Communication/Plan
-
dc back to SNF today
Assessment / Plan
Assessment / Plan
Assessment:
Septic shock
Acute pyelonephritis vs renal abscess
pansensitive E. Coli bacteremia from likely E. Coli UTI (pansensitive E. Coli confirmed from drain culture as well)
- pressors weaned off 03/28
- s/p IR drain 03/27
- repeat CT 03/30: partial but incomplete drainage of the abscess in the interval since the 03/26/2024 study
- repositioned with new drain 04/01; output scant to none. drain removed 04/04.
- follow cultures. continue Ampicillin, ID following. transition to Amoxil 500mg TID through 04/11/24
- OP Urology follow up in 4 weeks
GABRIEL in setting of sepsis
- improving with IVF/pressors
- continue GIULIANA
- continue Lasix
Hypokalemia
- replete prn
TME in setting of sepsis
- improving
- CT head no acute abnormality
prison resident
Wheelchair-bound
Coronary artery disease
- continue ASA/Statin
unspecified type of Atrial fibrillation
- continue Xarelto/BB
Essential Hypertension
- continue GIULIANA
- continue Lasix
Hypothyroidism
- continue levothyroxine 225 mcg daily (increased from 200 mcg due to TSH >10)
Hypoglycemia
- likely related to hypothyroidism - see above
- not on insulin/hypoglycemia agents
- oral intake adequate
- AM cortisol ok
Anxiety
Depression
- Continue bupropion, divalproex
- Hold trazodone
- Unclear why on tetrabenazine (no reported hx of Sonia)
Asthma
- continue Spiriva
Glaucoma
IBS
Kidney stones
Prostate cancer
- continue tamsulosin, finasteride
Arthritis
DVT ppx: Xarelto
Code: Full
More than 30 minutes spent in discharge including
Final examination of the patient
Summarizing hospital stay
Instructions for continuing care to all relevant caregivers
Preparation of discharge records, prescriptions, and referral forms
Total time spent (in minutes): 41
Anticipated Discharge: Today
Subjective/Interval History
-
Date of Service: April 05, 2024
denies any new complaints
no fever/chills or any infection signs, no flank pains
Objective Data
-
Vital Signs:
Vital Signs
Temp Pulse Resp BP Pulse Ox
97.4 F 76 16 123/78 98
04/05/24 07:35 04/05/24 08:53 04/05/24 07:35 04/05/24 08:53 04/05/24 08:00
I&O
04/04/24 04/05/24 04/06/24
06:59 06:59 06:59
Intake Total 730 / 730 1136 / 1136
Balance 730 / 730 1136 / 1136
Physical Exam
-
General: No Apparent Distress
HEENT: Normocephalic and Atraumatic
Respiratory: Negative Wheezes
Cardiac: Regular Rhythm and S1/S2
GI: Soft and Nontender
Musculoskeletal: No Edema
Neuro: AO x 3
Hematologic / Lymphatic: No Lymphadenopathy
Psych: Calm
Data Reviewed
-
Total Time Spent with Patient (in minutes): 42
Labs: Labs Reviewed by me
--- NOTE | 2024-04-05 11:54 | W.DS.TRANS ---
DC Summary - Java Technical Architect
-
Discharge Instructions:
Discharge Diagnosis/Procedures R renal abscess s/p drain
Diet Supplements
Additional Diets [id number] diet
Activity As tolerated
Instructions:
Stand-Alone Forms:
Changes to Home Medications: No
Discharge Medications:
DC Medications w/original date entered in [place]
acetaminophen 325 mg tablet (Tylenol) 650 mg PO TID 03/26/24
aluminum-mag hydroxide-simethicone 200 mg-200 mg-20 mg/5 mL oral susp 30 ml PO Q6HPRN PRN heartburn 03/26/24
aspirin 81 mg tablet,delayed release 81 mg PO DAILY 03/26/24
atorvastatin 40 mg tablet (Lipitor) 40 mg PO QPM 03/26/24
bupropion HCl 150 mg tablet,12 hr sustained-release (Wellbutrin SR) 150 mg PO DAILY 03/26/24
diclofenac sodium 1 % topical gel 2 g topical BID l lat neck/posterior 03/26/24
divalproex 125 mg tablet,delayed release 250 mg PO BID 03/26/24
finasteride 5 mg tablet 5 mg PO DAILY 03/26/24
furosemide 20 mg tablet (Lasix) 20 mg PO DAILY 03/26/24
gabapentin 100 mg tablet 200 mg PO TID 03/26/24
latanoprost 0.005 % eye drops 1 drp BOTH EYES HS 03/26/24
lisinopril 5 mg tablet 5 mg PO DAILY 03/26/24
loperamide 2 mg tablet 2 mg PO Q6HPRN PRN diarrhea 03/26/24
loratadine 10 mg tablet 10 mg PO DAILY 03/26/24
magnesium oxide 400 mg PO DAILY 03/26/24
metoprolol succinate 25 mg tablet,extended release 24 hr (Toprol XL) 25 mg PO DAILY 03/26/24
nystatin 100,000 unit/gram topical powder 1 applic topical TIDPRN PRN abd folds 03/26/24
oxybutynin chloride 5 mg tablet 5 mg PO HS 03/26/24
polyethylene glycol 3350 17 gram oral powder packet (Miralax) 17 g PO DAILY 03/26/24
rivaroxaban 20 mg tablet (Xarelto) 20 mg PO DAILY 03/26/24
tamsulosin 0.4 mg capsule (Flomax) 0.4 mg PO DAILY 03/26/24
tetrabenazine 12.5 mg tablet 12.5 mg PO DAILY 03/26/24
tiotropium bromide 18 mcg capsule with inhalation device (Spiriva with HandiHaler) 1 cap inhalation R DAILY 03/26/24
trazodone 50 mg tablet 75 mg PO HS 03/26/24
amoxicillin 500 mg capsule 500 mg PO TID #21 caps 04/04/24
levothyroxine 200 mcg tablet 200 mcg PO DAILY@0600 #30 tabs 04/04/24
levothyroxine 25 mcg tablet 25 mcg PO DAILY @ 0600 #30 tabs 04/04/24
Home Medication Changes
Pending Results: No
Total time spent discharging patient (in min): 41
[2024-04-05 12:29] LABS: Glucose - Point of Care 149 mg/dl (70-99)
--- NOTE | 2024-04-05 13:48 | CM ---
Pt is cleared for discharge today, returning to [facility]. Ambulance transport requested due to confusion and A of 2 people for transfers.
CM called pt's primary contact, Susie Crowe. Voicemail left regarding plan for Juarez's return to [facility] and provided information regarding IMM and right to appeal. Requested a call if she would like to review the form verbally.
Plan: Discharge to [facility] today
Report: [phone]
[2024-04-05 15:30] VITALS: BP 104/56
--- NOTE | 2024-04-05 15:54 | CM ---
Addendum entered by Davida Chauhan 04/06/24 13:01:
Pt discharge was delayed yesterday to [facility] due to ambulance availability.
Pt was discharged to [facility] today at 11am.
Report called and family made aware of change in discharge. IMM reviewed verbally with Jocelin Burnett via telephone. She is in agreement with discharge.
Plan: Discharge to [facility] today
[place] Report: [phone]
[facility]
Original Note:
CM called primary contact, Susie Crowe, however no answer and VM was not working. Call placed to secondary contact, Jocelin Burnett; notified her of Juarez's discharge back to [facility] today via ambulance at 8:30pm today. She was happy to
hear that he is able to leave the hospital.
Call to Esther, [facility] liaison, to discuss ambulance transport timing. Esther is checking with the facility to determine if they can accommodate his return tonight.
[place] Report: [phone]
[facility]
--- NOTE | 2024-04-05 16:03 | W.PN.ID1 ---
Date of Service
Date of Service: April 05, 2024
Today's Communication
Continue antibiotics. See below�
Assessment / Plan
E. coli bacteremia
Right renal abscess
Complicated urinary tract infection
Leukocytosis
Fever
Clinical sepsis
CAD
A-fib
Anxiety/depression
Asthma
Glaucoma
IBS
HTN
Hypothyroidism
Hx prostate CA
Recommendations:
Patient for discharge. Transition to oral amoxicillin 500 mg TID to continue through 04/11/24
����������������������������������������������������������
Chief Complaint
-: UTI, Bacteremia and Other (Right renal abscess)
Subjective / Review of Systems
Review of Systems: No Fever and No Chills
Vital Signs / Physical Exam
Vital Signs
Vital Signs
Temp Pulse Resp BP Pulse Ox
97.4 F 76 16 123/78 98
04/05/24 07:35 04/05/24 08:53 04/05/24 07:35 04/05/24 08:53 04/05/24 08:00
Physical Exam
Constitutional: No Acute Distress, Comfortable and Non-toxic
Eyes: Sclera Anicteric
Cardiovascular: S1/S2; Negative S3/S4
Pulmonary: Non Labored
Gastrointestinal: Soft, Non Tender and Other (right NING removed)
Extremities: Negative Edema, Cyanosis or Erythema
Neurological: Awake and Alert
Psychological: Calm
Objective Data
Lab Data
Lab Results
04/04/24 04:31
04/04/24 04:31
PT 19.5 Sec (11.4-14.6) H 03/26/24 23:38
INR 1.62 03/26/24 23:38
APTT 37.9 Sec (23.4-35.0) H 03/26/24 23:38
Estimated Creat Clear 123 ml/min 04/04/24 04:31
Lactic Acid 1.3 mmol/L (0.7-2.0) 03/27/24 03:31
Total Bilirubin 0.8 mg/dl (0.2-1.3) 03/27/24 03:31
AST 43 U/L (17-59) 03/27/24 03:31
ALT 24 U/L (0-50) 03/27/24 03:31
Alkaline Phosphatase 109 U/L (38-126) 03/27/24 03:31
Most recent labs reviewed.
Micro Results:
03/27/24 14:17 Wound Culture - Final
Kidney - Right Escherichia coli
Gram Stain - Final
03/26/24 19:46 Urine Culture - Final
Urine Escherichia coli
03/26/24 19:46 Blood Culture - Final
Blood/Venous Escherichia coli
Gram Stain - Final
03/26/24 19:46 Blood Culture - Final
Blood/Venous Escherichia coli
Gram Stain - Final
03/27/24 03:31 MRSA Screen - Final
Nose No Methicillin Resistant Staphylococcus aureus isolated.
03/26/24 19:23 Influenza Types A & B (RICHA) - Final
Nasal Swab Negative for Influenza A & B, NAAT
Negative results must be combined with clinical observations
and patient history.
Nucleic Acid Amplification test (NAAT)performed on the
[employer] platform.
xzc
Wound/abscess/other Cult Final 03/27/2024
Many Escherichia coli
Organism 1 Escherichia coli
1. Escherichia coli
M.I.C. RX
--------- ---
Amoxicillin/Potas. Clavulanate <=8/4 S
Ampicillin <=8 S
Ampicillin/Sulbactam <=4/2 S
Aztreonam <=4 S
Cefazolin <=2 S
Ertapenem <=0.5 S
Ciprofloxacin <=0.25 S
Gentamicin <=2 S
Meropenem <=1 S
Piperacillin/Tazobactam <=8 S
Tetracycline <=4 S
Tobramycin <=2 S
Trimethoprim/Sulfamethoxazole <=2/38 S
Imaging:
03/30/2024 CT abdomen/pelvis with IV contrast: New percutaneous drain catheter at the posterior inferior margin of the exophytic abscess at the lateral aspect of the upper pole of the right kidney. There has been partial but incomplete drainage of
the abscess in the interval since the 03/26/2024 study, in size measures approximately 2.5 x 2.0 x 4.8 cm. Please see full dictation for additional detail.
03/26/2024 CT abdomen/pelvis without contrast: here is a mass which extends between the upper pole of the right kidney and the adjacent right lobe of the liver, appearing to invade both of these structures. A differential considerations are abscess
and neoplasia, or possibly a combination of these 2 processes. A right renal origin would seem most likely, but difficult to state with certainty. Several nephroliths involving the mid to lower right kidney. No evidence for right ureteral calculus.
Gallbladder somewhat poorly visualized because of motion artifact. The low-density mass extends close to the posterior margin of the gallbladder, but does not appear to invade or arise from the gallbladder. Please see official report for
additional detail. Film personally viewed.
[2024-04-05 17:35] LABS: Glucose - Point of Care 105 mg/dl (70-99)
[2024-04-05] MEDS: LIPITOR 40 MG PO (17:46)
[2024-04-05] MEDS: XARELTO 20 MG PO (17:46)
[2024-04-05 21:42] LABS: Glucose - Point of Care 88 mg/dl (70-99)
[2024-04-05] MEDS: DESYREL 75 MG PO (21:45)
[2024-04-05] MEDS: XALATAN OPHTHALMIC SOLUTION 1 DROP BOTH EYES (21:51)
[2024-04-05 23:08] VITALS: BP 121/60
[2024-04-06] MEDS: AMPICILLIN 108 MG IV ×2 (00:57→08:11)
--- NOTE | 2024-04-06 02:46 | DOWNTIME ---
There was a [employer] Client Speech Pathologist Assistant Downtime on 04/06/2024 from 0100 to 04/06/2023 at 0235 . Downtime documentation of patient's care, including medication administrations, has been reconciled in the electronic record per guidelines. Refer to the
patient's paper chart under the miscellaneous tab to see printed paper medication records and downtime forms.
[2024-04-06] MEDS: SYNTHROID 200 MCG PO (05:15)
[2024-04-06] MEDS: SYNTHROID 25 MCG PO (05:15)
[2024-04-06] MEDS: SPIRIVA RESPIMAT 2.5 MCG 2 PUFF INH (07:23)
[2024-04-06 07:25] VITALS: BP 132/78
[2024-04-06] MEDS: PROSCAR 5 MG PO (08:07)
[2024-04-06] MEDS: NEURONTIN 200 MG PO (08:07)
[2024-04-06] MEDS: SENOKOT 8.6 MG PO (08:07)
[2024-04-06] MEDS: DEPAKOTE (12 HR RELEASE) 250 MG PO (08:07)
[2024-04-06] MEDS: LASIX 20 MG PO (08:07)
[2024-04-06] MEDS: CLARITIN 10 MG PO (08:07)
[2024-04-06] MEDS: WELLBUTRIN SR (12 hour sustained release) 150 MG PO (08:07)
[2024-04-06] MEDS: ASPIR LOW (ENTERIC COATED) 81 MG PO (08:07)
[2024-04-06] MEDS: FLOMAX 0.4 MG PO (08:07)
[2024-04-06] MEDS: TYLENOL 650 MG PO (08:07)
[2024-04-06] MEDS: TOPROL XL 25 MG PO (08:10)
[2024-04-06] MEDS: ZESTRIL 5 MG PO (08:10)
[2024-04-06] MEDS: MIRALAX 17 GRAMS PO (08:11)
[2024-04-06 08:15] LABS: Glucose - Point of Care 77 mg/dl (70-99)
[2024-04-06] MEDS: NOVOLOG FLEXPEN-LOW RESISTANCE SC (08:15)
--- NOTE | 2024-04-06 11:34 | W.PN.HOSP.TC ---
Today's Communication/Plan
-
dc to SNF
Assessment / Plan
Assessment / Plan
Assessment:
Septic shock
Acute pyelonephritis vs renal abscess
pansensitive E. Coli bacteremia from likely E. Coli UTI (pansensitive E. Coli confirmed from drain culture as well)
- pressors weaned off 03/28
- s/p IR drain 03/27
- repeat CT 03/30: partial but incomplete drainage of the abscess in the interval since the 03/26/2024 study
- repositioned with new drain 04/01; output scant to none. drain removed 04/04.
- follow cultures. continue Ampicillin, ID following. transition to Amoxil 500mg TID through 04/11/24
- OP Urology follow up in 4 weeks
GABRIEL in setting of sepsis
- improving with IVF/pressors
- continue GIULIANA
- continue Lasix
Hypokalemia
- replete prn
TME in setting of sepsis
- improving
- CT head no acute abnormality
senior living resident
Wheelchair-bound
Coronary artery disease
- continue ASA/Statin
unspecified type of Atrial fibrillation
- continue Xarelto/BB
Essential Hypertension
- continue GIULIANA
- continue Lasix
Hypothyroidism
- continue levothyroxine 225 mcg daily (increased from 200 mcg due to TSH >10)
Hypoglycemia
- likely related to hypothyroidism - see above
- not on insulin/hypoglycemia agents
- oral intake adequate
- AM cortisol ok
Anxiety
Depression
- Continue bupropion, divalproex
- Hold trazodone
- Unclear why on tetrabenazine (no reported hx of [place])
Asthma
- continue Spiriva
Glaucoma
IBS
Kidney stones
Prostate cancer
- continue tamsulosin, finasteride
Arthritis
DVT ppx: Xarelto
Code: Full
More than 30 minutes spent in discharge including
Final examination of the patient
Summarizing hospital stay
Instructions for continuing care to all relevant caregivers
Preparation of discharge records, prescriptions, and referral forms
Total time spent (in minutes): 42
Anticipated Discharge: Today
Subjective/Interval History
-
Date of Service: April 06, 2024
late entry, seen prior to transport out of hospital
no complaints
Objective Data
-
Vital Signs:
Vital Signs
Temp Pulse Resp BP Pulse Ox
97.5 F 76 16 132/78 95
04/06/24 07:25 04/06/24 08:07 04/06/24 07:25 04/06/24 08:07 04/06/24 10:16
I&O
04/05/24 04/06/24 04/07/24
06:59 06:59 06:59
Intake Total 1136 / 1136 0 / 0
Balance 1136 / 1136 0 / 0
Physical Exam
-
General: No Apparent Distress
HEENT: Normocephalic and Atraumatic
Respiratory: Negative Wheezes
Cardiac: Regular Rhythm and S1/S2
GI: Soft and Nontender
Musculoskeletal: No Edema
Neuro: AO x 3
Psych: Calm
Data Reviewed
-
Total Time Spent with Patient (in minutes): 42
Labs: Labs Reviewed by me
== END 2024-04-06 10:55 | DRG 871 ==
LOC: 4 EAST ACU 22:18
PROVIDERS: Internal Medicine; Nurse Practitioner Family; Radiology Diagnostic Radiology; Radiology Vascular & Interventional Radiology; Specialist; ADMITTING PHYSICIAN Hospitalist; ATTENDING PHYSICIAN Internal Medicine; CONSULT PHYSICIAN Internal Medicine Critical Care Medicine; CONSULT PHYSICIAN Internal Medicine Infectious Disease; CONSULT PHYSICIAN Surgery; EMERGENCY PHYSICIAN Emergency Medicine; FAMILY PHYSICIAN Internal Medicine
PROC: 02HV33Z Insertion of Infusion Device into Superior Vena Cava, Percutaneous Approach (ICD-10-PCS; 2024-03-27)
PROC: 0T9030Z Drainage of Right Kidney with Drainage Device, Percutaneous Approach (ICD-10-PCS; 2024-03-28)
PROC: 0T25X0Z Change Drainage Device in Kidney, External Approach (ICD-10-PCS; 2024-04-01)
PROC: 0TP5X0Z Removal of Drainage Device from Kidney, External Approach (ICD-10-PCS; 2024-04-04)
DX: A41.51 Sepsis due to Escherichia coli [E. coli] (principal); G92.8 Other toxic encephalopathy; R65.21 Severe sepsis with septic shock; N15.1 Renal and perinephric abscess; N17.9 Acute kidney failure, unspecified; N10 Acute pyelonephritis; F17.200 Nicotine dependence, unspecified, uncomplicated; I25.10 Atherosclerotic heart disease of native coronary artery without angina pectoris; I48.91 Unspecified atrial fibrillation; I10 Essential (primary) hypertension; E87.5 Hyperkalemia; E03.9 Hypothyroidism, unspecified; F41.9 Anxiety disorder, unspecified; J44.9 Chronic obstructive pulmonary disease, unspecified; N20.0 Calculus of kidney; H40.9 Unspecified glaucoma; M19.90 Unspecified osteoarthritis, unspecified site; F32.A Depression, unspecified; K58.9 Irritable bowel syndrome, unspecified; J45.909 Unspecified asthma, uncomplicated; E16.2 Hypoglycemia, unspecified; E87.6 Hypokalemia; Z82.49 Family history of ischemic heart disease and other diseases of the circulatory system; Z85.46 Personal history of malignant neoplasm of prostate; Z87.442 Personal history of urinary calculi; Z79.01 Long term (current) use of anticoagulants; Z79.82 Long term (current) use of aspirin; Z79.890 Hormone replacement therapy; Z88.1 Allergy status to other antibiotic agents; Z99.3 Dependence on wheelchair
CPT/HCPCS: 88305; 49406; 49423; 51701; 70450; 71045; 74176; 74177; 75984; 80048; 80053; 80202; 81003; 81015; 82533; 82805; 82962; 83036; 83605; 83735; 84100; 84439; 84443; 85025; 85027; 85610; 85730; 87040; 87070; 87071; 87077; 87086; 87149; 87186; 87205; 87502; 88112; 92526; 92610; 93005; 94640; 96365; 96366; 96367; 99291; C1729; C1769; Q9967

== ENCOUNTER 2024-10-11 05:41 | Inpatient (IN) | payer MEDICARE, OTHER, SELFPAY ==
[2024-10-10 22:11] VITALS: BMI 31.4
[2024-10-10 22:16] VITALS: BP 130/73
[2024-10-10 23:00] VITALS: BP 121/76
[2024-10-11] VITALS (18 sets, daily range): BP systolic 72–150; BP diastolic 69–86; BMI 31.7
--- NOTE | 2024-10-11 00:47 | ED.GENMED ---
History of Present Illness
General
Chief Complaint: Back Pain
Source: patient
Exam Limitations: none
Time Seen by Provider: 10/11/24 00:47
Nursing documentation reviewed up to this point in time: agreed with
History of Present Illness
History of Present Illness:
Note:
CHIEF COMPLAINT(S)
Left-sided back pain, diffuse abdominal pain.
HISTORY OF PRESENT ILLNESS
The patient is a 79-year-old male with past medical history of hypertension, hlp, coronary disease, GERD, bipolar disorder, who presented with complaints of left-sided back pain. EMS was called to [facility]. I spoke to staff from
[facility] who states that patient has been complaining of left sided rib pain and abdominal pain for the past week. Patient is very hard of hearing. There was no reported hx of falls or trauma to the area. Patient is very hard of hearing. The
pain reportedly started 'the other day' without any specific event such as a fall to initiate it. The patient denies having experienced any falls but noted difficulty sleeping due to the pain. He also describes the pain as being associated with his
side around the belly, although he denies any vomiting. The pain seems to be exacerbated by breathing. The patient denies experiencing any fever or significant cough or pain in the middle of his chest. He denies any diarrhea or constipation.
senior living staff apparently concerned about kidney cysts as related to his symptoms patient also admits to increased urinary frequency. He denies any dysuria. He denies any hematuria. He denies any pelvic pain.
PHYSICAL EXAM
General: Patient is well appearing and in no acute distress; non-toxic
Skin: Warm and dry, no rashes or lesions
Head: Normocephalic, atraumatic
Eyes: Sclera non-icteric. EOMs intact.
Cardiac: Regular rate and rhythm, no murmurs
Peripheral Vascular: No lower extremity swelling or edema
Pulm: Normal respiratory effort, no wheezes, rales, or rhonchi
Abdomen: Diffuse abdominal tenderness to palpation; left CVA tenderness noted
Musculoskeletal: No midline spinal tenderness, tenderness to palpation of the left posterior ribs with no overlying ecchymosis no crepitus
Neuro: CN II-XII intact, no focal neurologic deficits.
Psychiatric: Appropriate mood and affect.
PROBLEM LIST
- Acute left-sided back pain.
PLAN
Further diagnostic imaging will be obtained to understand the cause of the pain.
DIFFERENTIAL DIAGNOSIS
The Differential Diagnosis includes, in no particular order and is not limited to:
1. Musculoskeletal strain
2. Rib fracture
3. Pneumonia
4. Pleuritis
5. Pulmonary embolism
6. Abdominal aortic aneurysm
7. Cholecystitis
8. Renal colic
9. Pancreatitis
10. Shingles
CHART REVIEW
-Reviewed previous discharge summary from 04/05/2024 patient seen for fever change in mental status he was found to have E. coli positive cultures and ultimately source was attributed to renal abscess on the right and he had this drained with IR and
had a drain placed.
-Reviewed update note from urology 04/05/2024 patient seen for right renal mass attributed to be an abscess he was discharged on amoxicillin
-Reviewed tube change note from 04/01/2024 patient had abscess drain into place, with imaging showing moderate size residual abscess cavity
MDM/DISPOSITION
The patient is a 79-year-old male with past medical history of hypertension, hlp, coronary disease, GERD, bipolar disorder, who presented with complaints of left-sided back pain. EMS was called to [facility]. I spoke to staff from
[facility] who states that patient has been complaining of left sided rib pain and abdominal pain for the past week. There is no associated trauma. Patient himself also admits to urinary symptoms noting that he is using the bathroom and
urinating very frequently. He denies burning sensation with urination. On exam, there is diffuse abdominal tenderness nonfocal with guarding present. He has no fever. His vitals are stable. No leukocytosis noted. CMP unremarkable. Straight
cath urinalysis reveals occult blood and 3+ leukocyte esterase with white blood cells and few bacteria. CT scan shows significant enlargement of right renal abscess with hepatic extension and enlargement of prior percutaneous track. Case reviewed
with ED attending. Will initiate IV antibiotics and refer for admission and urology consult.
Past History
Past History
ED Past Medical History: HTN, Hypothyroidism and Psychiatric
ED Past Surgical History: Other (Hernia )
Social History
Tobacco: Smoker
Alcohol: None
Personal: Single
Living: with roommate
Employment: Disabled
Family History
Family History: Negative Early CAD
Phy Exam
Physical Exam
Physical Exam:
see hpi
Course
Orders/Labs/Results
Orders:
Orders
10/11/24 01:13
CT Abd/pelvis W Iv Cont Urgent
Comment:
Reason For Exam: left flank pain
CR Ribs-left 3 Vw W/pa Chest Urgent
Comment:
Reason For Exam: left rib pain
10/11/24 01:14
Electrocardiogram (*1) Urgent
Reason for Study: Abdominal Pain
EKG- Treatment ONCE
pacemaker [Interrogate Pacemaker- Treatment] ONCE
10/11/24 01:42
Complete Blood Count/With Diff Urgent
Comprehensive Metabolic Panel Urgent
Lipase Urgent
10/11/24 01:55
Urinalysis Reflex To Culture Urgent
Date Specimen was Collected: 10/11/24
Time Specimen was Collected: 01:55
Urine Microscopic Reflex Cult Urgent
Urine Culture Urgent
JOSE ELIAS Source: U
Specimen Description:
Date Specimen was Collected: 10/11/24
Time Specimen was Collected: 01:55
10/11/24 04:40
CefTRIAXone [Rocephin] 2,000 mg IV NOW STA
Morphine Sulfate 2 mg IV NOW STA
10/11/24 04:43
0.9% Sodium Chloride 500 ml [Nss] 500 ml IV BOLUS
08/26/25 04:50
Sterile Water [Sterile Water For Injection] 20 ml .ROUTE .STK-MED
Abnormal Lab Results
10/11/24 10/11/24
01:42 01:55
RBC 4.09 L 10^6/uL
(4.70-6.10)
Hgb 11.9 L g/dL
(13.0-18.0)
Hct 36.4 L %
(39.0-52.0)
MCHC 32.7 L g/dL
(33.0-37.0)
MPV 10.9 H fL
(7.4-10.4)
Abs Immat Gran (auto) 0.1 H 10^3/uL
(0-0.05)
Absolute Neuts (auto) 7.6 H 10^3/uL
(1.4-6.5)
Absolute Monos (auto) 0.8 H 10^3/uL
(0.1-0.6)
Immature Gran % 0.6 H %
(0-0.5)
Lymphocytes % 14.9 L %
(20.5-51.1)
Glucose 105 H mg/dl
(70-99)
Albumin 3.2 L g/dl
(3.5-5.0)
Ur Occult Blood Reflex 4+ A
(Negative)
Leukocyte Esterase Rfl 3+ A
(Negative)
Urine RBC 3-6 A /HPF
(0-2)
Urine WBC (Reflex) 26-30 A /HPF
(0-5)
Urine Bacteria (Reflex) Few A
(Negative)
Urine Albumin (Reflex) 2+ A
(Neg - Trace)
10/11/24 01:42
10/11/24 01:42
Vital Signs
Initial and Last Documented VS:
Initial Vital Signs
Pulse Resp
74 15
10/10/24 22:11 08/25/25 22:11
Last Documented Vital Signs
Temp Pulse Resp BP Pulse Ox
98.6 F 70 11 123/76 96
10/11/24 02:43 10/11/24 02:30 10/11/24 02:30 10/11/24 02:00 10/11/24 02:30
*Pulse Oximetry
SaO2: 96
Oxygen Mode of Delivery: Room air
Patient hypoxic: no
*Critical Care Note
Total Time (30-74mins, 75-104mins- exclusive of procedures): Not Applicable
ED Attending Note
-
Portions of this chart may have been created with voice recognition software.� Occasional wrong word or��sound alike� substitutions may have occurred due to the inherent limitations of voice recognition software.
Discharge Plan
Departure
Patient Disposition: Admit
Date of Disposition: 10/11/24
Time of Disposition: 04:57
Admit to: Med/Surg
Presentation/result/management discussed w/ accepting MD/DO: Hospitalist
Condition: Fair
Discharge Problem:
Abscess of right kidney, Hepatic abscess
Prescriptions:
No Action
latanoprost 0.005 % Drops
1 drp BOTH EYES HS
atorvastatin [Lipitor] 40 mg Tablet
40 mg PO QPM
bupropion HCl [Wellbutrin SR] 150 mg Tablet Sustained-Release 12 Hr
150 mg PO DAILY
acetaminophen [Tylenol] 325 mg Tablet
650 mg PO TID
trazodone 50 mg Tablet
75 mg PO HS
polyethylene glycol 3350 [Miralax] 17 gram Powder In Packet
17 g PO DAILY
loperamide 2 mg Tablet
2 mg PO Q6HPRN PRN (Reason: diarrhea)
aspirin 81 mg Tablet,Delayed Release (Dr/Ec)
81 mg PO DAILY
tamsulosin [Flomax] 0.4 mg Capsule
0.4 mg PO DAILY
divalproex 125 mg Tablet,Delayed Release (Dr/Ec)
250 mg PO BID
lisinopril 5 mg Tablet
5 mg PO DAILY
furosemide [Lasix] 20 mg Tablet
20 mg PO DAILY
metoprolol succinate [Toprol XL] 25 mg Tablet Extended Release 24 Hr
25 mg PO DAILY
alum-mag hydroxide-simeth 200-200-20 mg/5 mL Suspension
30 ml PO Q6HPRN PRN (Reason: heartburn)
nystatin 100,000 unit/gram Powder
1 applic TOPICAL TIDPRN PRN (Reason: abd folds)
oxybutynin chloride 5 mg Tablet
5 mg PO HS
finasteride 5 mg Tablet
5 mg PO DAILY
loratadine 10 mg Tablet
10 mg PO DAILY
tiotropium bromide [Spiriva with HandiHaler] 18 mcg Capsule, W/Inhalation Device
1 cap INHALATION R DAILY
gabapentin 100 mg Tablet
200 mg PO TID
diclofenac sodium 1 % Gel
2 g TOPICAL BID
tetrabenazine 12.5 mg Tablet
12.5 mg PO DAILY
Xarelto 20 mg Tablet
20 mg PO DAILY
magnesium oxide 400 mg magnesium Tablet
400 mg PO DAILY
levothyroxine 25 mcg Tablet
25 mcg PO DAILY @ 0600 Qty: 30 0RF
levothyroxine 200 mcg Tablet
200 mcg PO DAILY@0600 Qty: 30 0RF
amoxicillin 500 mg capsule
500 mg PO TID Qty: 21 0RF
Referrals:
Ish Rogers MD [Family Provider, Family Practice]
Interventions
Interventions:
*Risk Screen - Suicide Last Done: 10/10/24 22:12
*General Assessment Last Done: 10/10/24 22:12
*Neglect/Abuse Screening Last Done: 10/10/24 22:12
*ED- Fall Risk Assessment Last Done: 10/10/24 22:12
*ED COVID-19 Vaccine History Last Done: 10/10/24 22:12
ED-Musculoskeletal Assessment Last Done: 10/10/24 22:12
Discharge Date and Time
Print Language: VENEZUELAN
[2024-10-11 01:56] LABS: Hematocrit 36.4 % (39.0-52.0); Hemoglobin 11.9 g/dL (13.0-18.0); Mean Corp Hgb Conc. 32.7 g/dL (33.0-37.0); Mean Corpuscular Volume 89.0 fL (80.0-94.0); Nucleated Red Blood Cells % 0 % (-); Platelet Count 216 10^3/uL (130-400); Red Cell Dist. Width 13.7 % (11.5-14.5)
[2024-10-11 02:15] LABS: Urine Character Clear (Clear)
[2024-10-11 02:22] LABS: ALT (SGPT) 17 U/L (0-50); AST (SGOT) 18 U/L (17-59); Albumin 3.2 g/dl (3.5-5.0); Alkaline Phosphatase 95 U/L (38-126); Blood Urea Nitrogen 16 mg/dl (9-20); Calcium 8.8 mg/dl (8.4-10.2); Carbon Dioxide 27 mmol/L (22-30); Chloride 106 mmol/L (98-107); Estimated Creatinine Clearance 98 ml/min; Glucose 105 mg/dl (70-99); Lipase 56 U/L (23-300); Potassium 4.4 mmol/L (3.5-5.1); Sodium 139 mmol/L (135-145); Total Protein 6.8 g/dl (6.3-8.2); eGFR > 60.00
[2024-10-11 02:32] LABS: Urine Squamous Cell 0-2 /LPF (Few)
[2024-10-11 02:33] LABS: Urine White Cell 26-30 /HPF (0-5)
[2024-10-11] MEDS: MORPHINE SULFATE 2 MG IV (04:56)
[2024-10-11] MEDS: NSS 500 IV (04:57)
[2024-10-11] MEDS: ROCEPHIN 2000 MG IV (04:57)
[2024-10-11] MEDS: ZOFRAN 4 MG IV (05:09)
--- NOTE | 2024-10-11 05:30 | HPS.HSE ---
Family Physician
-
Family Physician: Ish Rogers MD
Chief Complaint
-
Abdominal pain
History of Present Illness
Patient is a 79y M with PMH significant for ASCVD, hypertension, A-Fib and dementia / depression who presents to ED complaining of abdominal pain. Patient states that she has been having pain in the L upper abdomen / lower chest. NH states that
he has been complaining of similar symptoms off-and-on for at least several days. He complains of pain that is worse with deep breathing and he feels somewhat SOB as a result. Patient denies any fevers / chills. No N/V/D. No urinary symptoms.
CT scan done in the ED this evening shows recurrence / re-accumulation of R perinephric abscess. Patient had similar abscess in March 2024 which was treated with percutaneous drainage and IV / PO abx.
Medical History
Past Medical History
Past Medical History: Reports Other
Additional Past Medical History:
ASCVD
Hypertension
Atrial Fibrillation
Hypothyroidism
Asthma / COPD
Prostate Cancer
Anxiety / Depression
Mild Dementia
Tardive Dyskinesia
Past Surgical History: Reports Other
Additional Past Surgical History:
PPM Placement
Social History
Tobacco: Non-smoker
Alcohol: None
Drug: None
Family History
Family History: Not pertinent
Allergies / Home Medications
Allergies reflects when Allergies were last updated in [facility].
Home Medications with original date entered in [facility]
Allergy/Medication List:
Allergies
Allergy/AdvReac Type Severity Reaction Status Date / Time
ciprofloxacin Allergy Unknown Verified 03/29/24 16:31
Quinolones Allergy Unknown Verified 03/29/24 16:31
Home Medications
acetaminophen 325 mg tablet (Tylenol) 650 mg PO TID 03/26/24
aluminum-mag hydroxide-simethicone 200 mg-200 mg-20 mg/5 mL oral susp 30 ml PO Q6HPRN PRN heartburn 03/26/24
aspirin 81 mg tablet,delayed release 81 mg PO DAILY 03/26/24
atorvastatin 40 mg tablet (Lipitor) 40 mg PO QPM 03/26/24
bupropion HCl 150 mg tablet,12 hr sustained-release (Wellbutrin SR) 150 mg PO DAILY 03/26/24
diclofenac sodium 1 % topical gel 2 g topical BID l lat neck/posterior 03/26/24
divalproex 125 mg tablet,delayed release 250 mg PO BID 03/26/24
finasteride 5 mg tablet 5 mg PO DAILY 03/26/24
furosemide 20 mg tablet (Lasix) 20 mg PO DAILY 03/26/24
gabapentin 100 mg tablet 200 mg PO TID 03/26/24
latanoprost 0.005 % eye drops 1 drp BOTH EYES HS 03/26/24
lisinopril 5 mg tablet 5 mg PO DAILY 03/26/24
loperamide 2 mg tablet 2 mg PO Q6HPRN PRN diarrhea 03/26/24
loratadine 10 mg tablet 10 mg PO DAILY 03/26/24
magnesium oxide 400 mg PO DAILY 03/26/24
metoprolol succinate 25 mg tablet,extended release 24 hr (Toprol XL) 25 mg PO DAILY 03/26/24
nystatin 100,000 unit/gram topical powder 1 applic topical TIDPRN PRN abd folds 03/26/24
oxybutynin chloride 5 mg tablet 5 mg PO HS 03/26/24
polyethylene glycol 3350 17 gram oral powder packet (Miralax) 17 g PO DAILY 03/26/24
rivaroxaban 20 mg tablet (Xarelto) 20 mg PO DAILY 03/26/24
tamsulosin 0.4 mg capsule (Flomax) 0.4 mg PO DAILY 03/26/24
tetrabenazine 12.5 mg tablet 12.5 mg PO DAILY 03/26/24
tiotropium bromide 18 mcg capsule with inhalation device (Spiriva with HandiHaler) 1 cap inhalation R DAILY 03/26/24
trazodone 50 mg tablet 75 mg PO HS 03/26/24
levothyroxine 200 mcg tablet 200 mcg PO DAILY@0600 #30 tabs 04/04/24
levothyroxine 25 mcg tablet 25 mcg PO DAILY @ 0600 #30 tabs 04/04/24
Review of Systems
-
History Source: Patient
A 12 point ROS was completed and negative except as noted: Yes
Constitutional: Denies Fever or Chills
Respiratory: Reports Trouble Breathing; Denies Cough
Cardiac: Reports Chest Pain; Denies Palpitations
Abdomen/GI: Reports Abdominal Pain; Denies Nausea, Vomiting, Diarrhea, Bloody Stools or Black Stools
: Denies Dysuria, Frequency or Flank Pain
Neurological: Denies Dizzy or Headache
Physical Exam
Vital Signs
Vital Signs
Temp Pulse Resp BP Pulse Ox
98.6 F 70 11 123/76 96
10/11/24 02:43 10/11/24 02:30 10/11/24 02:30 10/11/24 02:00 10/11/24 02:30
Physical Exam
General: Other (79y M in no acute distress,)
HEENT: Moist mucous membranes and Other (Edentulous. Lip-smacking / tongue movements c/w tardive dyskinesa.)
Respiratory: Clear; No Wheezes, Rales or Rhonchi
Cardiac: S1/S2 and Regular Rhythm; No Murmur
GI: Other (Soft. Tenderness mostly along the RIGHT abdomen. No rebound / guarding. No significant L abdominal tenderness.)
Musculoskeletal: No Clubbing, No Cyanosis and No Edema
Neuro: Awake and Alert
Laboratory Results
-
10/11/24 01:42
10/11/24 01:42
Laboratory Results
Total Bilirubin 0.4 mg/dl (0.2-1.3) 10/11/24 01:42
AST 18 U/L (17-59) 10/11/24 01:42
ALT 17 U/L (0-50) 10/11/24 01:42
Alkaline Phosphatase 95 U/L (38-126) 10/11/24 01:42
Lipase 56 U/L (23-300) 10/11/24 01:42
Impression/Plan
-
A/P: Patient is a 79y M with PMH significant for ASCVD, hypertension and prior perinephric abscess who presents to ED complaining of abdominal pain.
Recurrent Right Perinephric Abscess
- Admit for further evaluation and treatment.
- CT scan shows R perinephric abscess of similar size to initial presentation in March.
- IV abx with ceftriaxone for now (previously grew nguyễn-sensiive E coli).
- IR consulted for drain re-placement and fluid analysis / cultures.
- ID evaluation for additional recommendations.
- Follow temperature curve and monitor for new / worsening symptoms.
ASCVD
Atrial Fibrillation - Unknown Type
- Stable. s/p PPM placement.
- Continue ASA. Hold Xarelto acutely.
- Continue metoprolol with holding parameters.
- Monitor on tele.
Chronic HF - Unknown Type
- Stable. Patient does not appear volume overloaded at present.
- Hold Lasix acutely.
- Follow I/Os, daily weights, etc.
Asthma / COPD
- Stable. Albuterol PRN.
Hypothyroidism
- Continue current T4 replacement
Anxiety / Depression
Bipolar Disorder
Tardive Dyskinesia
- Stable. Continue current med regimen.
- Continue tetrabenazine for tardive dyskinesia.
History of Prostate Cancer
- s/p seed implantation.
- Continue tamsulosin / finasteride.
- Bladder scan protocol.
DVT Prophylaxis: SCDs
Code Status: NH face sheet indicates advanced directive of 'DNR/DNI/DNH'. Also included in his NH record however is a separate advanced directive form indicating 'Full Code' (dated 2023). Full code for now. Clarify code status with family / POA
in the AM.
--- NOTE | 2024-10-11 08:45 | W.PN.HOSP.TC ---
Today's Communication/Plan
-
await IR
await ID
cont rocephin
follow cultures
Assessment / Plan
Assessment / Plan
pt is a 79 year old male
'HOME' meds have been verified this AM by Med Rec Team--I adjusted to make sure current orders reflect home meds ([facility] meds)
Recurrent Right Perinephric Abscess--had in March--treated with percutaneous drainage and IV/PO antibiotics for nguyễn sensitive E. coli at that time--now CT scan shows recurrence extending into liver--await ID and IR for drain replacement--follow
cultures--cont rocephin
ASCVD/Atrial Fibrillation - Unknown Type, presumed paroxysmal but does have pacemaker--holding Xarelto for procedures--NOT on Toprol--cont asa
Chronic HF - Unknown Type--NO echo on file here--consider checking ECHO--holding lasix for now--restart when able--daily weights, I/Os
Asthma/COPD- Stable. Albuterol PRN.
Hypothyroidism- Continue levothyroxine
Anxiety/Depression/Bipolar Disorder/Tardive Dyskinesia (likely cause of tongue movements)--does not appear to be on tetrabenazine
History of Prostate Cancer--s/p seed implantation-- Continue tamsulosin/finasteride-- Bladder scan protocol.
DVT Proph--SCDs
Code Status: NH face sheet indicates advanced directive of 'DNR/DNI/DNH'-- Also included in his NH record however is a separate advanced directive form indicating 'Full Code' (dated 2023). Full code for now. Clarify code status with family/POA in
the AM.
Anticipated Discharge: > 48 hours
Subjective/Interval History
-
Date of Service: October 11, 2024
pt c/o 'peeing on himself'
Objective Data
-
Labs:
Laboratory Results
10/11/24
01:42
WBC 10.6
Hgb 11.9 L
Hct 36.4 L
Plt Count 216
Sodium 139
Potassium 4.4
Chloride 106
Carbon Dioxide 27
BUN 16
Creatinine 0.7
Glucose 105 H
Calcium 8.8
Total Bilirubin 0.4
AST 18
ALT 17
Alkaline Phosphatase 95
Vital Signs:
max temp for 24 hours
10/11/24
02:43
Temp 98.6 F
Vital Signs
Temp Pulse Resp BP Pulse Ox
97.6 F 72 16 109/69 99
10/11/24 08:39 10/11/24 08:39 10/11/24 08:39 10/11/24 08:39 10/11/24 08:39
Review of Systems
-
All other systems: Reviewed and negative
Physical Exam
-
General: Appears Chronically Ill
HEENT: Normocephalic, Atraumatic and Other (tongue movements)
Respiratory: Clear to Auscultation; Negative Wheezes or Rhonchi
Cardiac: Regular Rhythm and Other (pacemaker); Negative S1/S2 or Murmur
GI: Soft, Nontender, Nondistended and Normal Bowel Sounds
Musculoskeletal: No Clubbing, No Cyanosis and No Edema
Neuro: Awake
Psych: Calm
--- NOTE | 2024-10-11 09:00 | CM ---
Patient seen at bedside in ED. Patient is from [facility] and is ltc. CM left requesting call back regarding prior level of functioning and code status. CM will continue to follow for discharge planning needs.
Plan; return to SNF
[2024-10-11 10:53] LABS: INR 1.09; PT 14.4 Sec (11.4-14.6)
[2024-10-11] MEDS: ASPIR LOW (ENTERIC COATED) PO (11:24)
--- NOTE | 2024-10-11 13:01 | PTCARENOTE ---
Called for SPD to drop off SCD machine to [facility]
--- NOTE | 2024-10-11 13:30 | PTCARENOTE ---
Patient has been npo since MN, vitals stable, 2x incontinent urine episodes. Oriented, forgetful at times, turns well in stretcher. Report given to TOI RN. ED No Delay RN report tubed to receiving floor, 4 east
--- NOTE | 2024-10-11 13:51 | PTCARENOTE ---
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
--- NOTE | 2024-10-11 14:28 | W.PN.UPDATE ---
Update Note
Progress Note Update
Right perinephric abscess drainage catheter placed, yielding 90 cc of pus.
--- NOTE | 2024-10-11 15:50 | CON.ID ---
Consultation
-
Date/Time Consultation Requested: October 11, 2024 0641
Date/Time Consultation Performed: October 11, 2024 1550
Requesting Provider: Dr. Luis Carlos Garcia
Performing Provider: Dr. Aletha Naranjo
Reason for Consultation: Renal abscess
Chief Complaint / Past History
Chief Complaint
Abdominal pain
History of Present Illness
Juarez Lou is a 79-year-old male being evaluated at the request of Dr. Aldridge regarding recurrent renal abscess. Patient has a significant past medical history of A-fib, CAD, nephrolithiasis, Ecoli bacteremia from R renal abscess (03/2024)
s/p perc drain and completed po amoxicillin though 04/11/[address] Lee. He presented from [facility] earlier this morning due to several day history of intermittent abdominal pain mostly on the left. Positive shortness of breath. Positive urinary
frequency. No fevers or chills. In the ER, CT of the abdomen pelvis shows reaccumulation of the previous right renal abscess. He underwent IR percutaneous drainage with 90 cc of pus output.
Past History
Additional Past Medical History:
Dementia
CAD
A-fib
PPM placement
Anxiety/depression
Asthma/COPD
CHF
Glaucoma
IBS
HTN
Hypothyroidism
Nephrolithiasis
Hx R renal abscess s/p perc drain (03/2024)
Hx prostate CA s/p seed implant
Tardive Dyskinesia
Additional Past Surgical History:
Allergy History:
ciprofloxacin Allergy (Verified 03/29/24 16:31)
Unknown
Quinolones Allergy (Verified 03/29/24 16:31)
Unknown
Medications Reviewed: Yes
Current Antibiotics:
Ceftriaxone
Social History
Tobacco: Former Smoker
Alcohol: None
Drug: None
Personal: Single
Living: [facility]
Employment: Not Employed
Family History
Family History: Unable to Obtain
Review of Systems
Review of Systems
General: Negative Fever, Chills or Change in Appetite
HEENT: Negative Sinus Problems or Headache
Respiratory: Dyspnea; Negative Cough
Gasteroenterology: Negative Nausea, Vomiting or Diarrhea
Genital / Urological: Negative Dysuria
Endocrine: Weakness
All systems: All other systems were reviewed and were negative
Vital Signs
Temp Pulse Resp BP Pulse Ox
97.9 F 73 16 119/74 95
10/11/24 14:15 10/11/24 14:50 10/11/24 14:50 10/11/24 14:50 10/11/24 14:50
Physical Exam
Physical Exam
Constitutional: No Acute Distress
Eyes: No Conjunctival Hemorrhage and Sclera Anicteric
Pulmonary: Clear
Gastrointestinal: Soft, Non Tender, Non Distended and Normal Bowel Sounds
Genito-Urinary: CVA Tenderness (right) and Other (Right perc drain, cloudy red fluid.)
Extremities: Negative Edema
Neurological: Awake and Alert
Lab / Diagnostic Study Results
10/11/24 01:42
10/11/24 01:42
Abs Immat Gran (auto) 0.1 10^3/uL (0-0.05) H 10/11/24 01:42
Absolute Neuts (auto) 7.6 10^3/uL (1.4-6.5) H 10/11/24 01:42
Absolute Lymphs (auto) 1.6 10^3/uL (1.2-3.4) 10/11/24 01:42
Absolute Monos (auto) 0.8 10^3/uL (0.1-0.6) H 10/11/24 01:42
Absolute Basos (auto) 0.0 10^3/uL (0-0.2) 10/11/24 01:42
Immature Gran % 0.6 % (0-0.5) H 10/11/24 01:42
Neutrophils % 71.8 % (42.2-75.2) 10/11/24 01:42
Lymphocytes % 14.9 % (20.5-51.1) L 10/11/24 01:42
Monocytes % 7.2 % (1.7-9.3) 10/11/24 01:42
Eosinophils % 5.1 % (0-6) 10/11/24 01:42
Basophils % 0.4 % (0-2) 10/11/24 01:42
PT 14.4 Sec (11.4-14.6) 10/11/24 10:10
INR 1.09 10/11/24 10:10
Ur Squamous Epith Cells 0-2 /LPF (Few) 10/11/24 01:55
Microbiology Results
Micro:
10/11/24 14:10 Wound Culture - Pending
Abscess Gram Stain - Pending
10/11/24 01:55 Urine Culture - Pending
Urine
10/11/24 CXR: Recurrent findings suggesting a large right renal abscess. Visualized percutaneous tract, surrounding mild inflammation and probable reactive change of the gallbladder. Nonobstructing bilateral renal stones
Assessment / Plan
# Recurrent R renal abscess
-s/p perc drain 10/11
- Continue ceftriaxone pending cx
- Will need Urology follow-up
# Conditions present on admission
Dementia
CAD
A-fib
PPM placement
Anxiety/depression
Asthma/COPD
CHF
Glaucoma
IBS
HTN
Hypothyroidism
Nephrolithiasis
Hx R renal abscess s/p perc drain (03/2024)
Hx prostate CA s/p seed implant
Tardive Dyskinesia
[2024-10-11] MEDS: MELATONIN 5 MG PO (21:18)
[2024-10-11] MEDS: DESYREL 25 MG PO (21:18)
[2024-10-11] MEDS: XALATAN OPHTHALMIC SOLUTION 1 DROP BOTH EYES (21:19)
[2024-10-12] MEDS: MORPHINE SULFATE 2 MG IV ×3 (00:19→16:30)
[2024-10-12 03:37] VITALS: BP 132/82
[2024-10-12] MEDS: ROCEPHIN 2000 MG IV (05:09)
[2024-10-12] MEDS: STERILE WATER FOR INJECTION 20 ML IV (05:09)
[2024-10-12] MEDS: SYNTHROID 175 MCG PO (05:10)
[2024-10-12 06:00] VITALS: BMI 30.8
[2024-10-12 07:25] VITALS: BP 128/72
[2024-10-12 07:48] LABS: Hematocrit 38.4 % (39.0-52.0); Hemoglobin 12.2 g/dL (13.0-18.0); Mean Corp Hgb Conc. 31.8 g/dL (33.0-37.0); Mean Corpuscular Volume 89.7 fL (80.0-94.0); Red Cell Dist. Width 14.0 % (11.5-14.5)
[2024-10-12] MEDS: ASPIR LOW (ENTERIC COATED) 81 MG PO (08:09)
[2024-10-12 08:25] LABS: ALT (SGPT) 14 U/L (0-50); AST (SGOT) 14 U/L (17-59); Albumin 3.1 g/dl (3.5-5.0); Alkaline Phosphatase 93 U/L (38-126); Blood Urea Nitrogen 15 mg/dl (9-20); Calcium 8.7 mg/dl (8.4-10.2); Carbon Dioxide 27 mmol/L (22-30); Chloride 106 mmol/L (98-107); Estimated Creatinine Clearance 97 ml/min; Glucose 79 mg/dl (70-99); Magnesium 2.0 mg/dl (1.6-2.3); Potassium 4.3 mmol/L (3.5-5.1); Sodium 137 mmol/L (135-145); Total Protein 6.8 g/dl (6.3-8.2); eGFR > 60.00
[2024-10-12] MEDS: MIRALAX 17 GRAMS PO (10:46)
[2024-10-12 11:16] VITALS: BP 127/79
--- NOTE | 2024-10-12 13:47 | W.PN.HOSP.TC ---
Today's Communication/Plan
-
follow blood urine cultures until clear
cont rocephin
change code status to DNR/DNI
Assessment / Plan
Assessment / Plan
pt is a 79 year old male
Recurrent Right Perinephric Abscess--had in March--treated with percutaneous drainage and IV/PO antibiotics for nguyễn sensitive E. coli at that time--blood cultures are positive for Escherichia coli, however, urine culture positive for Proteus,
repeat until clear---now CT scan shows recurrence extending into liver--apprec ID and IR for drain replacement--follow cultures--cont rocephin
ASCVD/Atrial Fibrillation - Unknown Type, presumed paroxysmal but does have pacemaker--holding Xarelto for procedures--NOT on Toprol--cont asa
Chronic HF - Unknown Type--NO echo on file here--consider checking ECHO--holding lasix for now--restart when able--daily weights, I/Os
Asthma/COPD- Stable. Albuterol PRN.
Hypothyroidism--Continue levothyroxine
Anxiety/Depression/Bipolar Disorder/Tardive Dyskinesia (likely cause of tongue movements)--does not appear to be on tetrabenazine
History of Prostate Cancer--s/p seed implantation-- Continue tamsulosin/finasteride-- Bladder scan protocol.
DVT Proph--SCDs
Code Status: [place] face sheet indicates advanced directive of 'DNR/DNI/DNH'-- Also included in his NH record however is a separate advanced directive form indicating 'Full Code' (dated 2023). Spoke with patient earlier today, he wishes for no heroic
measures, no ventilators or machines to be on, no chest compressions. Therefore will make him DNR/DNI. Will need to verify DNH level of care.
Anticipated Discharge: > 48 hours
Subjective/Interval History
-
Date of Service: October 12, 2024
pt had narcotics for pain from drain placement
Objective Data
-
Labs:
Laboratory Results
10/12/24
06:11
WBC 7.6
Hgb 12.2 L
Hct 38.4 L
Plt Count
Sodium 137
Potassium 4.3
Chloride 106
Carbon Dioxide 27
BUN 15
Creatinine 0.7
Glucose 79
Calcium 8.7
Total Bilirubin 0.4
AST 14 L
ALT 14
Alkaline Phosphatase 93
Vital Signs:
max temp for 24 hours
10/12/24
03:37
Temp 97.8 F
Vital Signs
Temp Pulse Resp BP Pulse Ox
97.1 F 74 18 127/79 97
10/12/24 11:16 10/12/24 11:16 10/12/24 11:16 10/12/24 11:16 10/12/24 11:16
I&O
10/11/24 10/12/24 10/13/24
06:59 06:59 06:59
Intake Total
Output Total 885 / 885
Balance -875 / -875
Review of Systems
-
All other systems: Reviewed and negative
Physical Exam
-
General: Well Developed, Well Nourished and No Apparent Distress
HEENT: Normocephalic, Atraumatic and Other (tongue tardive dyskinesia); Negative Oxygen
Respiratory: Clear to Auscultation; Negative Wheezes, Rales or Rhonchi
Cardiac: Regular Rhythm and S1/S2; Negative Murmur
GI: Soft, Nontender, Nondistended, Normal Bowel Sounds and Other (NING drain placed)
Musculoskeletal: No Clubbing, No Cyanosis and No Edema
Skin: Warm
Neuro: Awake
Psych: Calm
--- NOTE | 2024-10-12 14:05 | CM ---
Addendum entered by Leonarda Pinto 10/12/24 15:03:
VM left on patient family member's phone
Original Note:
Patient seen at bedside with physician on . CM called to Liaison at [facility] and reviewed prior status at SNF. Patient was previously on [facility] per Liaison, Patient was taken off of hospice when he did not qualify for 6month
review/continuation. Patient would self propel himself in the wheelchair. Per Facility patient was DNR, DNI and DNH but due to pain patient family requested patient go to hospital. If patient wanted to return to hospice facility would sign him on
when he returned to facility. Plan is to call to patient contact, Susie Crowe. CM will continue to follow for discharge planning needs.
Plan; [facility] pending medical treatment plan.
--- NOTE | 2024-10-12 14:30 | PTOTSP ---
Speech Language Pathology
Pt seen for clinical bedside swallow evaluation. P.O. trials of puree, regular solids, and thin liquids provided. Slightly prolonged mastication given edentulous status. Lingual thrusting noted at times consistent with known tardive dyskinesia.
When chewing regular solid and talking, pt took liquid wash with cough response. No other coughing noted. No hx of PNA at [facility].
Recommend:
(1) Continue baseline diet of IDDSI Level 6 (soft/bite-sized) and thin liquids
(2) General aspiration precautions
(3) Meds as tolerated
(4) DATA COMMUNICATIONS ENGINEER to sign off. Please reconsult as indicated
--- NOTE | 2024-10-12 14:50 | W.PN.ID1 ---
Date of Service
Date of Service: October 12, 2024
Today's Communication
Continue ceftriaxone.
Assessment / Plan
# Recurrent R renal abscess
-s/p perc drain 10/11. prelim cx E. coli
- Continue ceftriaxone pending final cx
- Will need Urology follow-up outpt.
# Conditions present on admission
Dementia
CAD
A-fib
PPM placement
Anxiety/depression
Asthma/COPD
CHF
Glaucoma
IBS
HTN
Hypothyroidism
Nephrolithiasis
Hx R renal abscess s/p perc drain (03/2024)
Hx prostate CA s/p seed implant
Tardive Dyskinesia
Chief Complaint
-: Other (kidney abscess)
Vital Signs / Physical Exam
Vital Signs
Vital Signs
Temp Pulse Resp BP Pulse Ox
97.1 F 74 18 127/79 97
10/12/24 11:16 10/12/24 11:16 10/12/24 11:16 10/12/24 11:16 10/12/24 11:16
Physical Exam
Constitutional: No Acute Distress
Cardiovascular: Regular Rate and S1/S2
Pulmonary: Clear
Gastrointestinal: Soft, Non Tender, Non Distended and Normal Bowel Sounds
Extremities: Negative Edema
Neurological: Awake and Alert
Objective Data
Lab Data
Lab Results
10/12/24 06:11
10/12/24 06:11
PT 14.4 Sec (11.4-14.6) 10/11/24 10:10
INR 1.09 10/11/24 10:10
Estimated Creat Clear 97 ml/min 10/12/24 06:11
Total Bilirubin 0.4 mg/dl (0.2-1.3) 10/12/24 06:11
AST 14 U/L (17-59) L 10/12/24 06:11
ALT 14 U/L (0-50) 10/12/24 06:11
Alkaline Phosphatase 93 U/L (38-126) 10/12/24 06:11
Most recent labs reviewed.
Micro Results:
10/11/24 14:10 Wound Culture - Preliminary
Abscess Escherichia coli
Gram Stain - Preliminary
10/11/24 01:55 Urine Culture - Preliminary
Urine Proteus species
10/11/24 CXR: Recurrent findings suggesting a large right renal abscess. Visualized percutaneous tract, surrounding mild inflammation and probable reactive change of the gallbladder. Nonobstructing bilateral renal stones
[2024-10-12 15:27] VITALS: BP 121/79
--- NOTE | 2024-10-12 17:03 | W.PN.UPDATE ---
Update Note
Progress Note Update
Received call back from patient's contact Susie Crowe. She is in full agreement with his wanting DNR/DNI status. She is in full agreement that if he decides to go back on hospice she would support that. She does not know how he ended up being
admitted to the hospital when his paperwork at the snf states do not hospitalize. She also does not understand how he was able to come off hospice in the first place.
I updated her on his clinical status and plan of care. She was appreciative.
[2024-10-12 19:27] VITALS: BP 122/79
[2024-10-12] MEDS: MELATONIN 5 MG PO (21:46)
[2024-10-12] MEDS: DESYREL 25 MG PO (21:46)
[2024-10-12] MEDS: XALATAN OPHTHALMIC SOLUTION 1 DROP BOTH EYES (21:47)
[2024-10-12 23:36] VITALS: BP 116/68
[2024-10-13] VITALS (8 sets, daily range): BP systolic 110–129; BP diastolic 67–82; PULSE 79; O2SAT 95; BMI 31.1
[2024-10-13] MEDS: STERILE WATER FOR INJECTION 20 ML IV (05:20)
[2024-10-13] MEDS: ROCEPHIN 2000 MG IV (05:20)
[2024-10-13] MEDS: SYNTHROID 175 MCG PO (05:20)
[2024-10-13 08:57] LABS: ALT (SGPT) 13 U/L (0-50); AST (SGOT) 16 U/L (17-59); Albumin 3.4 g/dl (3.5-5.0); Alkaline Phosphatase 96 U/L (38-126); Blood Urea Nitrogen 15 mg/dl (9-20); Calcium 9.0 mg/dl (8.4-10.2); Carbon Dioxide 25 mmol/L (22-30); Chloride 105 mmol/L (98-107); Estimated Creatinine Clearance 97 ml/min; Glucose 87 mg/dl (70-99); Magnesium 2.1 mg/dl (1.6-2.3); Potassium 4.1 mmol/L (3.5-5.1); Sodium 136 mmol/L (135-145); Total Protein 7.2 g/dl (6.3-8.2); eGFR > 60.00
--- NOTE | 2024-10-13 09:00 | PTOTSP ---
pt currently requires supervision to close supervision for functional transfers, simple ADLs. pt appears to be close to baseline. pt pleasant and cooperative during session, able to make needs known and aware of situation. recommend return to NH
with assistance as needed. no acute OT needs identified at this time, will sign off.
[2024-10-13] MEDS: ASPIR LOW (ENTERIC COATED) 81 MG PO (09:02)
[2024-10-13 09:24] LABS: Hematocrit 39.9 % (39.0-52.0); Hemoglobin 12.9 g/dL (13.0-18.0); Mean Corp Hgb Conc. 32.3 g/dL (33.0-37.0); Mean Corpuscular Volume 88.3 fL (80.0-94.0); Red Cell Dist. Width 13.9 % (11.5-14.5)
--- NOTE | 2024-10-13 10:56 | W.PN.ID1 ---
Date of Service
Date of Service: October 13, 2024
Today's Communication
See below.
Assessment / Plan
# Recurrent R renal abscess
-s/p perc drain 10/11. cx E. coli, pansensitive
- Continue ceftriaxone
- At time of discharge, transition to cefazolin Augmentin 875mg po bid x 3-4 weeks.
# Conditions present on admission
Dementia
CAD
A-fib
PPM placement
Anxiety/depression
Asthma/COPD
CHF
Glaucoma
IBS
HTN
Hypothyroidism
Nephrolithiasis
Hx R renal abscess s/p perc drain (03/2024)
Hx prostate CA s/p seed implant
Tardive Dyskinesia
Chief Complaint
-: Other (kidney abscess)
Subjective / Review of Systems
Ordering his lunch.
Vital Signs / Physical Exam
Vital Signs
Vital Signs
Temp Pulse Resp BP Pulse Ox
98.1 F 70 18 129/82 95
10/13/24 08:07 10/13/24 08:07 10/13/24 08:07 10/13/24 08:07 10/13/24 08:07
Physical Exam
Constitutional: No Acute Distress
Cardiovascular: Regular Rate and S1/S2
Pulmonary: Clear
Gastrointestinal: Soft, Non Tender, Non Distended and Normal Bowel Sounds
Genito-Urinary: Other (Right flank perc drain semi-thick cloudy pink fluid); Negative CVA Tenderness
Extremities: Negative Edema
Neurological: Awake and Alert
Objective Data
Lab Data
Lab Results
10/13/24 07:09
10/13/24 07:09
PT 14.4 Sec (11.4-14.6) 10/11/24 10:10
INR 1.09 10/11/24 10:10
Estimated Creat Clear 97 ml/min 10/13/24 07:09
Total Bilirubin 0.4 mg/dl (0.2-1.3) 10/13/24 07:09
AST 16 U/L (17-59) L 10/13/24 07:09
ALT 13 U/L (0-50) 10/13/24 07:09
Alkaline Phosphatase 96 U/L (38-126) 10/13/24 07:09
Most recent labs reviewed.
Micro Results:
10/11/24 01:55 Urine Culture - Preliminary
Urine Proteus species
Gram negative bacilli
10/11/24 14:10 Wound Culture - Final
Abscess Escherichia coli
Gram Stain - Final
10/13/24 07:09 Blood Culture - Pending
Blood/Venous
10/11/24 CXR: Recurrent findings suggesting a large right renal abscess. Visualized percutaneous tract, surrounding mild inflammation and probable reactive change of the gallbladder. Nonobstructing bilateral renal stones
--- NOTE | 2024-10-13 14:29 | CM ---
Patient seen at bedside with physician on . Patient cousin pato returned phone call and spoke with physician to review patient care. Patient cousin indicated that she would support patient with whatever treatment he decided including
hospice. Patient cousin denied ever talking to facility prior to patient transfer to . Patient did not think he would like to return to prior hospice but requested to talk to [facility] to request further information. CM sent referral via tt to [facility]
liaison for hospice to consult with patient. Patient continues with drain at this time per physician. CM will continue to follow for discharge planning needs.
Plan; return to SNF; pending Hospice discussion.
--- NOTE | 2024-10-13 16:46 | W.PN.HOSP.TC ---
Today's Communication/Plan
-
hospice consult for information only
need guidance re: drain
possible d/c over the weekend?
Assessment / Plan
Assessment / Plan
pt is a 79 year old male
Recurrent Right Perinephric Abscess--had in March--treated with percutaneous drainage and IV/PO antibiotics for nguyễn sensitive E. coli at that time--blood cultures are positive for Escherichia coli, however, urine culture positive for Proteus,
repeat until clear---now CT scan shows recurrence extending into liver--apprec ID and IR for drain replacement--follow cultures--cont rocephin to Augmentin at d/c--unclear who is managing abscess drain
ASCVD/Atrial Fibrillation - Unknown Type, presumed paroxysmal but does have pacemaker--holding Xarelto for procedures--NOT on Toprol--cont asa
Chronic HF - Unknown Type--NO echo on file here--consider checking ECHO--holding lasix for now--restart when able--daily weights, I/Os
Asthma/COPD- Stable. Albuterol PRN.
Hypothyroidism--Continue levothyroxine
Anxiety/Depression/Bipolar Disorder/Tardive Dyskinesia (likely cause of tongue movements)--does not appear to be on tetrabenazine
History of Prostate Cancer--s/p seed implantation-- Continue tamsulosin/finasteride-- Bladder scan protocol.
DVT Proph--SCDs
Code Status: [place] face sheet indicates advanced directive of 'DNR/DNI/DNH'-- Also included in his NH record however is a separate advanced directive form indicating 'Full Code' (dated 2023). Spoke with patient earlier today, he wishes for no heroic
measures, no ventilators or machines to be on, no chest compressions. Therefore will make him DNR/DNI.
Spoke with patient's contact, as mentioned, Susie Crowe. She was not involved in the decision to take him to the hospital but does agree that if he wants DNR/DNI she would not disagree. If he wants to return on hospice, she would not disagree.
Hospice consulted for informational only.
Anticipated Discharge: 24 - 48 hours
Subjective/Interval History
-
Date of Service: October 13, 2024
pt agreeable to having hospice come talk to him for information only
Objective Data
-
Labs:
Laboratory Results
10/13/24
07:09
WBC 6.9
Hgb 12.9 L
Hct 39.9
Plt Count
Sodium 136
Potassium 4.1
Chloride 105
Carbon Dioxide 25
BUN 15
Creatinine 0.7
Glucose 87
Calcium 9.0
Total Bilirubin 0.4
AST 16 L
ALT 13
Alkaline Phosphatase 96
Vital Signs:
max temp for 24 hours
10/12/24
23:36
Temp 98.3 F
Vital Signs
Temp Pulse Resp BP Pulse Ox
98.2 F 76 18 126/69 97
10/13/24 15:59 10/13/24 15:59 10/13/24 15:59 10/13/24 15:59 10/13/24 15:59
I&O
10/12/24 10/13/24 10/14/24
06:59 06:59 06:59
Intake Total 720 / 720 360 / 360
Output Total 885 / 885 910 / 910 575 / 575
Balance -875 / -875 -190 / -190 -215 / -215
Review of Systems
-
All other systems: Reviewed and negative
Physical Exam
-
General: Well Developed, Well Nourished and No Apparent Distress
HEENT: Normocephalic and Atraumatic; Negative Oxygen
Respiratory: Clear to Auscultation; Negative Wheezes or Rhonchi
Cardiac: Regular Rhythm, S1/S2 and Murmur
GI: Soft, Nontender, Nondistended, Normal Bowel Sounds and Other (NING drain in place)
Musculoskeletal: No Clubbing, No Cyanosis and No Edema
Skin: Warm
Neuro: Awake
Psych: Calm
[2024-10-13] MEDS: DESYREL 25 MG PO (20:40)
[2024-10-13] MEDS: MELATONIN 5 MG PO (20:40)
[2024-10-13] MEDS: XALATAN OPHTHALMIC SOLUTION 1 DROP BOTH EYES (20:41)
[2024-10-14 03:24] VITALS: BP 114/79
[2024-10-14 05:35] VITALS: BMI 30.1
[2024-10-14] MEDS: STERILE WATER FOR INJECTION 20 ML IV (05:40)
[2024-10-14] MEDS: SYNTHROID 175 MCG PO (05:40)
[2024-10-14] MEDS: ROCEPHIN 2000 MG IV (05:40)
[2024-10-14 07:25] VITALS: BP 121/76
[2024-10-14] MEDS: ASPIR LOW (ENTERIC COATED) 81 MG PO (07:57)
[2024-10-14 08:02] LABS: Blood Urea Nitrogen 15 mg/dl (9-20); Calcium 8.9 mg/dl (8.4-10.2); Carbon Dioxide 28 mmol/L (22-30); Chloride 106 mmol/L (98-107); Estimated Creatinine Clearance 96 ml/min; Glucose 96 mg/dl (70-99); Magnesium 2.1 mg/dl (1.6-2.3); Potassium 4.0 mmol/L (3.5-5.1); Sodium 140 mmol/L (135-145); eGFR > 60.00
[2024-10-14 08:11] LABS: Hematocrit 38.9 % (39.0-52.0); Hemoglobin 12.6 g/dL (13.0-18.0); Mean Corp Hgb Conc. 32.4 g/dL (33.0-37.0); Mean Corpuscular Volume 87.8 fL (80.0-94.0); Red Cell Dist. Width 13.8 % (11.5-14.5)
--- NOTE | 2024-10-14 08:39 | PTCARENOTE ---
TOI RN-sent drainage care instructions with dodie cardoso case management to add to d/c instructions back to previous living situation.
--- NOTE | 2024-10-14 08:43 | PTCARENOTE ---
TOI RN- sent drainage care instructions with Leonarda Pinto case management to send with patient upon discharge to previous living state.
[2024-10-14 11:13] VITALS: BP 113/68
--- NOTE | 2024-10-14 11:19 | HOSPNOTE ---
Spoke with patient about hospice and the philosophy. The patient is in agreement to return to [facility] with a different hospice agency and not [facility]. I did tell patient that [facility] is not the preferred provider in the facility however
patient is able to have a choice as to which agency he would prefer. The patient does not wish to come back to the hospital. I will make CM aware of our conversation. If we can be of further assistance please reach out, if not we will sign off.
[2024-10-14 15:24] VITALS: BP 138/64
--- NOTE | 2024-10-14 15:24 | W.PN.ID1 ---
Date of Service
Date of Service: October 14, 2024
Today's Communication
See below.
Assessment / Plan
# Recurrent R renal abscess
-s/p perc drain 10/11. cx E. coli, pansensitive
- Continue ceftriaxone
- At time of discharge, transition to high dose cephalexin 1000 mg po q8h until abscess resolves (anticipate 3-4 week course).
- should have IR abscessogram when drain output minimal before dc drain.
# Conditions present on admission
Dementia
CAD
A-fib
PPM placement
Anxiety/depression
Asthma/COPD
CHF
Glaucoma
IBS
HTN
Hypothyroidism
Nephrolithiasis
Hx R renal abscess s/p perc drain (03/2024)
Hx prostate CA s/p seed implant
Tardive Dyskinesia
Chief Complaint
-: Other (kidney abscess)
Subjective / Review of Systems
No pain.
Vital Signs / Physical Exam
Vital Signs
Vital Signs
Temp Pulse Resp BP Pulse Ox
97.7 F 82 18 113/68 96
10/14/24 11:13 10/14/24 11:13 10/14/24 11:13 10/14/24 11:13 10/14/24 11:13
Physical Exam
Constitutional: No Acute Distress and Comfortable
Cardiovascular: Regular Rate and S1/S2
Pulmonary: Clear
Gastrointestinal: Soft, Non Tender, Non Distended and Normal Bowel Sounds
Genito-Urinary: Other (Right flank perc drain semi-thick cloudy pink fluid); Negative CVA Tenderness
Extremities: Negative Edema
Neurological: Awake and Alert
Objective Data
Lab Data
Lab Results
10/14/24 06:33
10/14/24 06:33
PT 14.4 Sec (11.4-14.6) 10/11/24 10:10
INR 1.09 10/11/24 10:10
Estimated Creat Clear 96 ml/min 10/14/24 06:33
Total Bilirubin 0.4 mg/dl (0.2-1.3) 10/13/24 07:09
AST 16 U/L (17-59) L 10/13/24 07:09
ALT 13 U/L (0-50) 10/13/24 07:09
Alkaline Phosphatase 96 U/L (38-126) 10/13/24 07:09
Most recent labs reviewed.
Micro Results:
10/11/24 01:55 Urine Culture - Final
Urine Proteus mirabilis
10/13/24 07:09 Blood Culture - Preliminary
Blood/Venous No Growth in 24 hours- Final report to follow
10/11/24 14:10 Wound Culture - Final
Abscess Escherichia coli
Gram Stain - Final
10/11/24 CXR: Recurrent findings suggesting a large right renal abscess. Visualized percutaneous tract, surrounding mild inflammation and probable reactive change of the gallbladder. Nonobstructing bilateral renal stones
--- NOTE | 2024-10-14 15:31 | W.PN.HOSP.TC ---
Today's Communication/Plan
-
d/c
Assessment / Plan
Assessment / Plan
pt is a 79 year old male
Recurrent Right Perinephric Abscess--had in March--treated with percutaneous drainage and IV/PO antibiotics for nguyễn sensitive E. coli at that time--blood cultures are positive for Escherichia coli, however, urine culture positive for Proteus,
repeat now clear---now CT scan shows recurrence extending into liver--apprec ID and IR for drain replacement---cont high dose Keflex 1000mg Q8H until abscess resolves (3-4 weeks)--when drainage < 10ml/24 hours x 1-2 days--then IR will assess for
drain removal
ASCVD/Atrial Fibrillation - Unknown Type, presumed paroxysmal but does have pacemaker--holding Xarelto for procedures--NOT on Toprol--cont asa
Chronic HF - Unknown Type--NO echo on file here--consider checking ECHO--holding lasix for now--restart when able--daily weights, I/Os
Asthma/COPD- Stable. Albuterol PRN.
Hypothyroidism--Continue levothyroxine
Anxiety/Depression/Bipolar Disorder/Tardive Dyskinesia (likely cause of tongue movements)--does not appear to be on tetrabenazine
History of Prostate Cancer--s/p seed implantation-- Continue tamsulosin/finasteride-- Bladder scan protocol.
DVT Proph--SCDs
Code Status: [place] face sheet indicates advanced directive of 'DNR/DNI/DNH'-- Also included in his [place] record however is a separate advanced directive form indicating 'Full Code' (dated 2023). Spoke with patient earlier, he wishes for no heroic
measures, no ventilators or machines to be on, no chest compressions. Therefore will make him DNR/DNI.
Spoke with patient's contact, as mentioned, Susie Crowe. She was not involved in the decision to take him to the hospital but does agree that if he wants DNR/DNI she would not disagree. If he wants to return on hospice, she would not disagree.
He spoke with hospice AND wants a DIFFERENT hospice agency than he had.
Anticipated Discharge: Today
Subjective/Interval History
-
Date of Service: October 14, 2024
pt can return to [facility]
Objective Data
-
Labs:
Laboratory Results
10/14/24
06:33
WBC 5.6
Hgb 12.6 L
Hct 38.9 L
Plt Count
Sodium 140
Potassium 4.0
Chloride 106
Carbon Dioxide 28
BUN 15
Creatinine 0.7
Glucose 96
Calcium 8.9
Vital Signs:
max temp for 24 hours
10/14/24
03:24
Temp 98.0 F
Vital Signs
Temp Pulse Resp BP Pulse Ox
97.6 F 82 18 138/64 95
10/14/24 15:24 10/14/24 15:24 10/14/24 15:24 10/14/24 15:24 10/14/24 15:24
I&O
10/13/24 10/14/24 10/15/24
06:59 06:59 06:59
Intake Total 720 / 720 840 / 840
Output Total 910 / 910 1280 / 1280
Balance -190 / -190 -440 / -440
Review of Systems
-
All other systems: Reviewed and negative
Physical Exam
-
General: Well Developed, Well Nourished and No Apparent Distress
HEENT: Normocephalic and Atraumatic
Respiratory: Clear to Auscultation; Negative Wheezes or Rhonchi
Cardiac: Regular Rhythm and S1/S2; Negative Murmur
GI: Soft, Nontender, Nondistended, Normal Bowel Sounds and Other (NING drain in renal abscess)
Musculoskeletal: No Clubbing, No Cyanosis and No Edema
Neuro: Other (tardive dyskinesia)
Psych: Calm
--- NOTE | 2024-10-14 15:46 | CM ---
Patient for discharge to SNF; [facility]. Patient IMM to be emailed to patient sister at [email or web address]. Patient to return to SNF at [facility]; [phone]/fax [phone]. Ambulance transportation forms will be sent to [address] [place] [address]
will continue to follow for discharge planning needs.
Plan; SNF; to [facility]
--- NOTE | 2024-10-14 16:57 | PTCARENOTE ---
Called facility to give report and the RN said they don't take admissions after 7pm.
--- NOTE | 2024-10-14 17:43 | PTCARENOTE ---
Per case management the pt will be accepted at 8pm. Pt will be leaving
[2024-10-14 19:45] VITALS: BP 129/76
[2024-10-14] MEDS: DESYREL 25 MG PO (20:46)
[2024-10-14] MEDS: MELATONIN 5 MG PO (20:46)
--- NOTE | 2024-10-15 14:40 | W.DCSUMMARY ---
Discharge Summary
Discharge Data
Date of Admission: 10/11/24
Date of Discharge: 10/14/24
-
Pending Results: No
Hospital Course
Primary care physician : Ish Rogers
Principal Discharge diagnosis : Recurrence of right perinephric abscess status post percutaneous drainage with culture positive for Escherichia coli, Proteus urinary tract infection
Chronic Discharge diagnosis : Paroxysmal atrial fibrillation, chronic heart failure unknown type presumed diastolic with preserved ejection fraction, chronic obstructive pulmonary disease, hypothyroidism, anxiety/bipolar disorder/tardive
dyskinesia/depression, history of prostate cancer
Hospital Course : Patient was a 79-year-old male who was sent in because he was complaining of abdominal pain. He had left upper abdomen and lower chest pain however, CAT scan done in the emergency department for workup showed recurrence and
reaccumulation of a right perinephric abscess. Patient denied any fevers, chills, nausea, vomiting, diarrhea, or urinary symptoms. He does admit that the pain was worse. He had a similar episode in March of this year which was treated with
percutaneous drainage, IV antibiotics followed by oral antibiotics at that time. Patient was admitted.
Problem #1: Recurrence of right perinephric abscess status post percutaneous drainage with culture positive for Escherichia coli. Patient was admitted and seen in consultation by infectious disease. Patient also underwent interventional radiology
procedure for drain placement. CAT scan done in the emergency department shows recurrence of this perinephric abscess extending into the liver. Wound culture was positive for Escherichia coli. Patient was started on IV Rocephin with plans to
change to high dose cephalexin at discharge. This would be the equivalent of 1000 mg every 8 hours until the abscess resolves which would be approximately 3 to 4 weeks in duration. When the drainage from the tube becomes less than 10 mL in a
24-hour period for 1 to 2 days in total it is recommended that interventional radiology reevaluate for removal of the drain.
Problem #2: Proteus urinary tract infection. As mentioned, patient was started on IV Rocephin. Patient had no urinary complaints.
Problem #3: All other medical issues. These include Paroxysmal atrial fibrillation, chronic heart failure unknown type presumed diastolic with preserved ejection fraction, chronic obstructive pulmonary disease, hypothyroidism, anxiety/bipolar
disorder/tardive dyskinesia/depression, history of prostate cancer. These medical issues were stable during his hospitalization. Medications were continued as able.
Reports from the patient's physician at [facility] indicate that patient was DNR/DNI/DNH and was previously on hospice but that was revoked in August given intake when reevaluated by hospice and he was deemed no longer a candidate. I spoke at
length with the patient's contact and power of claims attorney Susie Crowe. Patient wished to be DNR/DNI. He was also agreeable to go on a different hospice rather than the one he just came off of. She she is in full agreement with what ever his
wishes would be. She has no objection to DO NOT RESUSCITATE, DO NOT INTUBATE, and do not hospitalize as well as reinstituting hospice.
Patient is stable to return back to his shelter at this time. If there are any questions regarding this dictation or his hospital stay, please do not hesitate to call. Our office number is [phone].
Time for discharge 40 minutes.
Important imaging findings :
ABDOMINAL/PELVIS CT SCAN IMPRESSION:
Recurrent findings suggesting a large right renal abscess. Visualized percutaneous tract, surrounding mild inflammation and probable reactive change of the gallbladder.
Nonobstructing bilateral renal stones. New on the left. Stable on the right.
Mild diffuse bladder wall thickening. This may be due to limited distention. Cystitis and bladder outlet obstruction not excluded. Stable
Discharge Plan
-
Patient Disposition: [facility]/SNF
Condition: Good
Diet: As tolerated and Regular
Activity: No restrictions
Driving Restrictions: No driving
Bathing Restrictions: None
Activity Restrictions/Additional Instructions:
Pt is to be DNR/DNI/DNH (DO NOT HOSPITALIZE) and wants a DIFFERENT hospice agency when he returns to [facility] after finishing his antibiotics.
Referrals:
Ish Rogers MD [Family Provider, [facility]] - in less than 1 week
Prescriptions:
New
aspirin 81 mg Tablet,Delayed Release (Dr/Ec)
81 mg PO DAILY Qty: 0 0RF
cephalexin 500 mg capsule
1,000 mg PO Q8H 28 Days Qty: 168 0RF
Rx Instructions:
3-4 week course of treatment--UNLESS patient decides to sign on to hospice sooner
Continued
latanoprost 0.005 % Drops
1 drp BOTH EYES HS
acetaminophen [Tylenol] 325 mg Tablet
650 mg PO Q6HPRN PRN (Reason: mild pain)
trazodone 50 mg Tablet
25 mg PO HS
polyethylene glycol 3350 [Miralax] 17 gram Powder In Packet
17 g PO [id number] PRN (Reason: constipation)
loperamide 2 mg Tablet
2 mg PO DAILYPRN PRN (Reason: diarrhea)
Rx Instructions:
give 2 tablets after each loose stool of diarrhea,max dose of 8 tablets in 24hrs
alum-mag hydroxide-simeth 200-200-20 mg/5 mL Suspension
30 ml PO Q4HPRN PRN (Reason: heartburn)
nystatin 100,000 unit/gram Powder
1 applic TOPICAL TIDPRN PRN (Reason: abd folds)
levothyroxine [Synthroid] 175 mcg Tablet
175 mcg PO DAILY
ipratropium-albuterol 0.5 mg-3 mg(2.5 mg base)/3 mL Solution For Nebulization
3 ml INHALATION R Q4HPRN PRN (Reason: sob)
diphenhydramine HCl [Benadryl] 25 mg Capsule
25 mg PO [id number] PRN (Reason: swollen lips)
melatonin 5 mg Tablet
5 mg PO HS
Discharge Orders:
Discharge Patient (As Directed); Ordered 10/14/24
Ordered By: Mireya Avila
Discharge Date and Time
Discharge Date/Time: 10/14/24 21:09
Print Language: HUNGARIAN
== END 2024-10-14 21:09 | DRG 689 ==
LOC: 4 EAST ACU 05:41
PROVIDERS: Physician Assistant; Radiology Vascular & Interventional Radiology; ADMITTING PHYSICIAN Hospitalist; ATTENDING PHYSICIAN Internal Medicine; CONSULT PHYSICIAN Internal Medicine Infectious Disease; EMERGENCY PHYSICIAN Emergency Medicine; FAMILY PHYSICIAN Family Medicine
PROC: 0W9G30Z Drainage of Peritoneal Cavity with Drainage Device, Percutaneous Approach (ICD-10-PCS; 2024-10-11)
DX: N15.1 Renal and perinephric abscess (principal); K75.0 Abscess of liver; F03.A4 Unspecified dementia, mild, with anxiety; F03.A18 Unspecified dementia, mild, with other behavioral disturbance; F03.A3 Unspecified dementia, mild, with mood disturbance; I50.32 Chronic diastolic (congestive) heart failure; I11.0 Hypertensive heart disease with heart failure; F31.9 Bipolar disorder, unspecified; K21.9 Gastro-esophageal reflux disease without esophagitis; H91.90 Unspecified hearing loss, unspecified ear; I25.10 Atherosclerotic heart disease of native coronary artery without angina pectoris; I48.0 Paroxysmal atrial fibrillation; E78.5 Hyperlipidemia, unspecified; E03.9 Hypothyroidism, unspecified; J44.89 Other specified chronic obstructive pulmonary disease; H40.9 Unspecified glaucoma; K58.0 Irritable bowel syndrome with diarrhea; F17.200 Nicotine dependence, unspecified, uncomplicated; N39.0 Urinary tract infection, site not specified; B96.4 Proteus (mirabilis) (morganii) as the cause of diseases classified elsewhere; G24.01 Drug induced subacute dyskinesia; B96.20 Unspecified Escherichia coli [E. coli] as the cause of diseases classified elsewhere; Z66 Do not resuscitate; Z60.2 Problems related to living alone; Z82.49 Family history of ischemic heart disease and other diseases of the circulatory system; Z79.890 Hormone replacement therapy; Z79.82 Long term (current) use of aspirin; Z85.46 Personal history of malignant neoplasm of prostate; Z95.0 Presence of cardiac pacemaker; Z88.1 Allergy status to other antibiotic agents; Z92.3 Personal history of irradiation; Z87.442 Personal history of urinary calculi
CPT/HCPCS: 49406; 71101; 74177; 80048; 80053; 81003; 81015; 82248; 83690; 83735; 85025; 85027; 85610; 87040; 87070; 87077; 87086; 87088; 87186; 87205; 92610; 93005; 97162; 97166; C1729; C1769; Q9967

== ENCOUNTER 2024-11-04 09:19 | Inpatient (IN) | payer MEDICARE, OTHER, SELFPAY ==
[2024-11-04] VITALS (11 sets, daily range): BP systolic 97–124; BP diastolic 56–88; BMI 32.0; BMI 30.8
[2024-11-04 05:19] LABS: Hematocrit 42.8 % (39.0-52.0); Hemoglobin 13.5 g/dL (13.0-18.0); Mean Corp Hgb Conc. 31.5 g/dL (33.0-37.0); Mean Corpuscular Volume 88.1 fL (80.0-94.0); Nucleated Red Blood Cells % 0 % (-); Platelet Count 160 10^3/uL (130-400); Red Cell Dist. Width 15.6 % (11.5-14.5)
[2024-11-04] MEDS: DILAUDID 0.5 MG IV ×2 (05:20→17:07)
[2024-11-04] MEDS: ZOFRAN 4 MG IV (05:20)
[2024-11-04 05:50] LABS: ALT (SGPT) 13 U/L (0-50); AST (SGOT) 16 U/L (17-59); Albumin 3.7 g/dl (3.5-5.0); Alkaline Phosphatase 79 U/L (38-126); Blood Urea Nitrogen 18 mg/dl (9-20); Calcium 8.8 mg/dl (8.4-10.2); Carbon Dioxide 27 mmol/L (22-30); Chloride 106 mmol/L (98-107); Estimated Creatinine Clearance 86 ml/min; Glucose 122 mg/dl (70-99); Potassium 4.4 mmol/L (3.5-5.1); Sodium 139 mmol/L (135-145); Total Protein 7.2 g/dl (6.3-8.2); eGFR > 60.00
--- NOTE | 2024-11-04 07:14 | ED.GENMED ---
History of Present Illness
General
Chief Complaint: Flank Pain
Time Seen by Provider: 11/04/24 05:08
Past History
Past History
ED Past Medical History: HTN, Hypothyroidism and Psychiatric
ED Past Surgical History: Other (Hernia )
Social History
Tobacco: Smoker
Alcohol: None
Personal: Single
Living: with roommate
Employment: Disabled
Family History
Family History: Negative Early CAD
Course
Orders/Labs/Results
Orders:
Orders
11/04/24 05:06
Electrocardiogram (*1) Urgent
Reason for Study: Chest Pain
EKG- Treatment ONCE
11/04/24 05:07
CMP [Comprehensive Metabolic Panel] Urgent
Complete Blood Count/With Diff Urgent
11/04/24 05:08
CR Chest Portable - 1 View Urgent
Comment:
Reason For Exam: dyspnea, flank pain, upper chest pain
Reason Study Needs to be Portable: Patient Unstable
11/04/24 05:18
HYDROmorphone [Dilaudid] 0.5 mg .ROUTE .STK-MED ONE
Ondansetron Injectable [Zofran] 4 mg .ROUTE .STK-MED ONE
11/04/24 05:19
HYDROmorphone [Dilaudid] 0.5 mg IV NOW STA
11/04/24 05:20
Ondansetron Injectable [Zofran] 4 mg IV NOW STA
11/04/24 05:52
CT Abd/pelvis W Iv Cont Urgent
Comment:
Reason For Exam: right nephrostomy tube pain
Abnormal Lab Results
11/04/24
05:07
WBC 11.1 H 10^3/uL
(4.8-10.8)
MCHC 31.5 L g/dL
(33.0-37.0)
RDW 15.6 H %
(11.5-14.5)
MPV 11.1 H fL
(7.4-10.4)
Absolute Neuts (auto) 9.2 H 10^3/uL
(1.4-6.5)
Absolute Lymphs (auto) 0.8 L 10^3/uL
(1.2-3.4)
Absolute Monos (auto) 0.9 H 10^3/uL
(0.1-0.6)
Neutrophils % 83.0 H %
(42.2-75.2)
Lymphocytes % 7.3 L %
(20.5-51.1)
Glucose 122 H mg/dl
(70-99)
AST 16 L U/L
(17-59)
11/04/24 05:07
11/04/24 05:07
Vital Signs
Initial and Last Documented VS:
Initial Vital Signs
Temp Resp
36.3 C 22
11/04/24 05:02 11/04/24 05:02
Last Documented Vital Signs
Temp Pulse Resp BP Pulse Ox
36.3 C 81 19 117/64 96
11/04/24 05:02 11/04/24 07:00 11/04/24 07:00 11/04/24 07:00 11/04/24 07:00
*Pulse Oximetry
SaO2: 96
Nasal Cannula flow liters per minute: 2
Oxygen Mode of Delivery: Room air
ED Attending Note
-
Portions of this chart may have been created with voice recognition software.� Occasional wrong word or��sound alike� substitutions may have occurred due to the inherent limitations of voice recognition software.
Discharge Plan
Departure
Prescriptions:
No Action
latanoprost 0.005 % Drops
1 drp BOTH EYES HS
acetaminophen [Tylenol] 325 mg Tablet
650 mg PO Q6HPRN PRN (Reason: mild pain)
trazodone 50 mg Tablet
25 mg PO HS
polyethylene glycol 3350 [Miralax] 17 gram Powder In Packet
17 g PO [id number] PRN (Reason: constipation)
loperamide 2 mg Tablet
2 mg PO DAILYPRN PRN (Reason: diarrhea)
Rx Instructions:
give 2 tablets after each loose stool of diarrhea,max dose of 8 tablets in 24hrs
alum-mag hydroxide-simeth 200-200-20 mg/5 mL Suspension
30 ml PO Q4HPRN PRN (Reason: heartburn)
nystatin 100,000 unit/gram Powder
1 applic TOPICAL TIDPRN PRN (Reason: abd folds)
levothyroxine [Synthroid] 175 mcg Tablet
175 mcg PO DAILY
ipratropium-albuterol 0.5 mg-3 mg(2.5 mg base)/3 mL Solution For Nebulization
3 ml INHALATION R Q4HPRN PRN (Reason: sob)
diphenhydramine HCl [Benadryl] 25 mg Capsule
25 mg PO [id number] PRN (Reason: swollen lips)
melatonin 5 mg Tablet
5 mg PO HS
aspirin 81 mg Tablet,Delayed Release (Dr/Ec)
81 mg PO DAILY Qty: 0 0RF
cephalexin 500 mg capsule
1,000 mg PO Q8H 28 Days Qty: 168 0RF
Rx Instructions:
3-4 week course of treatment--UNLESS patient decides to sign on to hospice sooner
Referrals:
Ish Rogers MD [Family Provider, Family Practice]
Interventions
Interventions:
*Risk Screen - Suicide Last Done: 11/04/24 05:12
*General Assessment Last Done: 11/04/24 05:10
*Neglect/Abuse Screening Last Done: 11/04/24 05:10
*ED- Fall Risk Assessment Last Done: 11/04/24 05:10
*ED COVID-19 Vaccine History Last Done: 11/04/24 05:10
UY-Vgbmvk-Acbewooobs Assessment Last Done: 11/04/24 05:13
ED-Male Genitourinary Assessment Last Done: 11/04/24 05:13
Discharge Date and Time
Print Language: BELARUSIAN
--- NOTE | 2024-11-04 07:21 | ED.GENMED ---
History of Present Illness
General
Chief Complaint: Flank Pain
Source: patient and ambulance crew
Exam Limitations: none
Time Seen by Provider: 11/04/24 05:08
Nursing documentation reviewed up to this point in time: agreed with
History of Present Illness
History of Present Illness:
Note:
CHIEF COMPLAINT(S)
Severe chest pain.
HISTORY OF PRESENT ILLNESS
The patient is a 79-year-old male presenting with severe chest pain, which began early this morning. He reports that there has been no change in color or associated symptoms such as shortness of breath or changes in skin color. There is no history
of chronic obstructive pulmonary disease or similar lung conditions. The patient denies any recent events or changes in health other than the chest pain experienced today. Patient resides at [facility]. He was brought in by EMS due to severe
right flank pain. Patient paperwork states that he is a DNR/DNH but patient we have that to come into the ER for pain control. Upon arrival he received Dilaudid. He states that it helped his symptoms. He does have a history of dementia so
history is limited.
On March 27, 2024 and a Sinhala percutaneous drainage catheter placed in the right renal collection under CT guidance. 210 cc of purulent fluid evacuated post catheter placement. Sample sent for analysis. No immediate complications. At the
time, patient was in septic shock.
REVIEW OF SYSTEMS
- Cardiovascular: Severe chest pain.
- Respiratory: Denies any lung issues such as chronic obstructive pulmonary disease or shortness of breath.
- Skin: No change in color associated with chest pain.
PHYSICAL EXAM
General: Alert, no acute distress.
Skin: Warm, dry.
Head: Normocephalic, atraumatic.
Neck: Supple, trachea midline.
Eye Ears, Nose, Mouth, and Throat: Oral mucosa moist.
Cardiovascular: Normal peripheral perfusion, No edema.
Respiratory: Respirations are non-labored.
Gastrointestinal: Abdomen nondistended.
Back: Normal range of motion, Normal alignment.
Musculoskeletal: Normal range of motion, normal strength.
Neurological: Alert and oriented to person, place, time, and situation, No focal neurological deficit observed.
Psychiatric: Cooperative, appropriate mood & affect.
DIFFERENTIAL DIAGNOSIS
The Differential Diagnosis includes, in no particular order and is not limited to:
1. Acute myocardial infarction.
2. Unstable angina.
3. Pneumonia.
4. Pulmonary embolism.
5. Gastroesophageal reflux disease.
6. Pericarditis.
7. Aortic dissection.
8. Costochondritis.
9. Pneumothorax.
10. Heart failure.
CARE-UPDATE
11/04/24 - 07:20
No Content
CARE-UPDATE
11/04/24 - 07:[address] scan reveals a percutaneous drain in a 5.9 cm right perinephric abscess located in the right subhepatic space adjacent to the upper pole of the right kidney, now extending to the posterior segment of the right liver lobe. There is an interval
decrease in the abscess size following the placement of the drain on . A new 5.3 mm partially obstructing calculus is present in the right UPJ, causing mild distension in the right renal pelvis. The patient is to be admitted to the hospital
service. Interventional Radiology has reviewed the films. Neurology has been notified.
Disposition:
SUMMARY OF ENCOUNTER
The patient is a 79-year-old male presenting with severe right flank pain. Recently, a percutaneous drain was placed to address a perinephric abscess, which has since decreased in size. A CT scan revealed a new 5.3 mm partially obstructing calculus
at the ureteropelvic junction (UPJ). The patient was seen to manage pain secondary to this new finding.
DISPOSITION
Admit to hospital service for pain control.
MANAGEMENT OF THE PATIENTS CARE WAS DISCUSSED WITH
Interventional Radiology (IR) was contacted, and Urology has been notified regarding the UPJ calculus and the patients ongoing pain management needs.
PLAN
The plan includes admitting the patient for further management of pain and monitoring the partially obstructing calculus in the right UPJ. Consultation with Urology was completed based on current symptoms.
MEDICAL DECISION MAKING
-Complexity of Data Reviewed: Chronic conditions affecting care. Differential diagnosis includes acute myocardial infarction, unstable angina, pneumonia, pulmonary embolism, gastroesophageal reflux disease, pericarditis, aortic dissection,
costochondritis, pneumothorax, and heart failure.
-Data:
Category 1
No emergency department records were reviewed, but the patients imaging (CT scan) was reviewed, showing interval decrease in abscess size and a new partially obstructing calculus.
Category 3
Discussion of management with Interventional Radiology and Urology consultants regarding ongoing pain management and care strategy for the obstructing calculus.
-Risk:
The decision was made to admit the patient for inpatient care due to the partially obstructing calculus and the potential for complications.
DIAGNOSIS
- Obstructive uropathy due to ureteral calculus (N20.1)
- Right perinephric abscess (K67.1)
Past History
Past History
ED Past Medical History: HTN, Hypothyroidism and Psychiatric
ED Past Surgical History: Other (Hernia )
Social History
Tobacco: Smoker
Alcohol: None
Personal: Single
Living: with roommate
Employment: Disabled
Family History
Family History: Negative Early CAD
Phy Exam
Physical Exam
Physical Exam:
.
Course
Orders/Labs/Results
Orders:
Orders
11/04/24 05:06
Electrocardiogram (*1) Urgent
Reason for Study: Chest Pain
EKG- Treatment ONCE
11/04/24 05:07
CMP [Comprehensive Metabolic Panel] Urgent
Complete Blood Count/With Diff Urgent
11/04/24 05:08
CR Chest Portable - 1 View Urgent
Comment:
Reason For Exam: dyspnea, flank pain, upper chest pain
Reason Study Needs to be Portable: Patient Unstable
11/04/24 05:18
HYDROmorphone [Dilaudid] 0.5 mg .ROUTE .STK-MED ONE
Ondansetron Injectable [Zofran] 4 mg .ROUTE .STK-MED ONE
11/04/24 05:19
HYDROmorphone [Dilaudid] 0.5 mg IV NOW STA
11/04/24 05:20
Ondansetron Injectable [Zofran] 4 mg IV NOW STA
11/04/24 05:52
CT Abd/pelvis W Iv Cont Urgent
Comment:
Reason For Exam: right nephrostomy tube pain
11/04/24 08:57
Admit/Transfer Patient As Directed
Co-Sign Provider:
Level of Care: Inpatient admission
Assign to:: Medical/Surgical
Physician / Group: Vijay Duron
Diagnosis: Obstructive uropathy
Reason for Hospitalization: Obstructive uropathy
Expected length of stay greater than two midnights?: Yes
ELOS- Estimated Length of Stay in days: 3
I certify the patient meets the requirements for IP care: Yes
PRN Pain Medication Management As Directed
May give lesser potent ordered pain med per pt: Yes
preference::
Protocol:: Medication orders for pain may be administered in a
manner that supports deferring to patient preference
when the pt is:
- Requesting an ordered lesser potent pain medication.
Least to most potent pain medications are defined
as: acetaminophen < NSAID < tramadol < opioids
(morphine, oxycodone, hydromorphone).
- Requesting a lesser dose of the same medication IF
ORDERED.
- Requesting a less intrusive route of administration
if both routes are prescribed by the provider (PO <
IV).
11/04/24 09:00
Code Status As Directed
Resuscitation Status: Do not resuscitate
Reached after discussion with pt or family/Healthcare POA: Yes
DNR Bracelet Application ONCE
11/04/24 09:03
HYDROmorphone [Dilaudid] 0.5 mg IV Q4HPRN PRN
Oxycodone [Roxicodone] 5 mg PO Q4HPRN PRN
11/04/24 09:31
Blood Culture Q30M
JOSE ELIAS Source: Blood/Venous
Specimen Description:
11/04/24 09:38
Blood Culture Q30M
JOSE ELIAS Source: Blood/Venous
Specimen Description:
11/04/24 Lunch
Cholesterol Lowering
At Your Request: Full Participation
Does patient need a safe tray?: No
Cholesterol Lowering: Sodium, 2 Gram
IDDSI 6 - Small Bite/Soft
CefTRIAXone [Rocephin] 2,000 mg IV Q24H
Tamsulosin [Flomax] 0.4 mg PO DAILY
11/04/24 11:20
Acetaminophen [Tylenol] 650 mg PO Q6HPRN PRN mild pain
Bisacodyl [Dulcolax] 10 mg RECTAL [id number] PRN
Diphenhydramine [Benadryl] 25 mg PO [id number] PRN swollen lips
Docusate W/Senna [Senokot-S] 1 tablet PO BIDPRN PRN
Ipratropium/Albuterol Sulfate [Duoneb] 3 ml INH R Q4HPRN PRN sob
Levothyroxine [Synthroid] 175 mcg PO DAILY @ 0600
Mag Hydrox/Al Hydrox/Simeth [Maalox] 30 ml PO Q4HPRN PRN heartburn
Polyethylene Glycol Powder [Miralax] 17 grams PO DAILYPRN PRN
11/04/24 11:20
UROLOGY CONSULT Routine
Consulting Provider: Gm Coppola
Was physician already notified: Yes
Activity As Directed
Activity Level: As Tolerated
Vital Signs As Directed
Frequency: Per unit guidelines
DX Deep Vein Thrombosis Video Routine
11/04/24 11:34
Loperamide [Imodium] 2 mg PO DAILYPRN PRN
11/04/24 12:07
Miconazole Nitrate [Desenex/Mitrazol/Zeasorb] 1 applic TOPICAL BIDPRN PRN
11/04/24 13:52
Urinalysis Reflex To Culture Routine
Date Specimen was Collected: 11/04/24
Time Specimen was Collected: 13:44
11/04/24 22:00
Latanoprost [Xalatan Ophthalmic Solution] 1 drop BOTH EYES HS
Melatonin 5 mg PO HS
Trazodone [Desyrel] 25 mg PO HS
11/05/24 07:52
Basic Metabolic Panel IN AM
Complete Blood Count/No Diff IN AM
Abnormal Lab Results
11/04/24
05:07
WBC 11.1 H 10^3/uL
(4.8-10.8)
MCHC 31.5 L g/dL
(33.0-37.0)
RDW 15.6 H %
(11.5-14.5)
MPV 11.1 H fL
(7.4-10.4)
Absolute Neuts (auto) 9.2 H 10^3/uL
(1.4-6.5)
Absolute Lymphs (auto) 0.8 L 10^3/uL
(1.2-3.4)
Absolute Monos (auto) 0.9 H 10^3/uL
(0.1-0.6)
Neutrophils % 83.0 H %
(42.2-75.2)
Lymphocytes % 7.3 L %
(20.5-51.1)
Glucose 122 H mg/dl
(70-99)
AST 16 L U/L
(17-59)
11/04/24 05:07
11/04/24 05:07
Vital Signs
Initial and Last Documented VS:
Initial Vital Signs
Temp Resp
97.4 F 22
11/04/24 05:02 11/04/24 05:02
Last Documented Vital Signs
Temp Pulse Resp BP Pulse Ox
98.1 F 65 18 133/68 96
11/08/24 15:00 11/08/24 15:00 11/08/24 15:00 11/08/24 15:00 11/08/24 15:00
*Pulse Oximetry
SaO2: 96
Nasal Cannula flow liters per minute: 2
Oxygen Mode of Delivery: Room air
Patient hypoxic: no
*Critical Care Note
Total Time (30-74mins, 75-104mins- exclusive of procedures): Not Applicable
ED Attending Note
-
Portions of this chart may have been created with voice recognition software.� Occasional wrong word or��sound alike� substitutions may have occurred due to the inherent limitations of voice recognition software.
Discharge Plan
Departure
Patient Disposition: Admit
Date of Disposition: 11/04/24
Time of Disposition: 07:24
Admit to doctor: Sussy Duron
Presentation/result/management discussed w/ accepting MD/DO: Hospitalist
Condition: Good
Discharge Problem:
Chronic pain, Kidney stone, Subacute perinephric abscess
Interventions
Interventions:
*Risk Screen - Suicide Last Done: 11/04/24 11:34
*General Assessment Last Done: 11/04/24 05:10
*Neglect/Abuse Screening Last Done: 11/04/24 05:10
*ED- Fall Risk Assessment Last Done: 11/04/24 05:10
*ED COVID-19 Vaccine History Last Done: 11/04/24 05:10
*Nursing Disposition Last Done: 11/04/24 10:49
HM-Fgpjht-Egrlkgyeab Assessment Last Done: 11/04/24 05:13
ED-Male Genitourinary Assessment Last Done: 11/04/24 05:13
Discharge Date and Time
Discharge Date/Time: 11/04/24 10:50
--- NOTE | 2024-11-04 07:38 | PHANOTE ---
Addendum entered by Amanda Renee 11/04/24 17:25:
CALLED [employer] FOR MISSING PAPERWORK, AWAITING FAX
Original Note:
cox monett note- called intermediate at [phone] for missing paperwork, will be fax over.
--- NOTE | 2024-11-04 09:07 | HPS.HSE ---
Addendum entered and electronically signed by Vijay Duron MD 11/04/24 13:36:
I personally performed a history and physical exam of the patient and discussed management with the resident. I reviewed the resident's note and agree with the documented findings and plan of care HPI/CC.
Patient is a 79-year-old male with past medical history of atrial fibrillation, chronic diastolic congestive heart failure, asthma, COPD, hypothyroidism, anxiety, depression, history of right perinephric abscess status post drain placement came to
ER with new onset of right flank pain. Patient denies of having any associated nausea vomiting fever hematuria. In ER a CT abdomen pelvis showing right UPJ junction 5 mm obstructing stone stone.
HEENT: No pallor, cyanosis, or jaundice. Throat clear.
NECK: Supple. No JVD.
RESPIRATORY: Lungs clear to auscultation.
CVS: S1, S2 normal. RRR. No murmur, rub or gallop.
ABDOMEN: Soft, non-tender. No distension. Right costovertebral angle drain in place with drainage of sanguinous fluid
EXTREMITIES: No peripheral cyanosis or edema.
SHIP CARPENTER: AOx3. Slurred speech.
1. Obstructing right ureteral stone
- Patient having right flank pain
- CT abdomen pelvis showing 5 mm stone obstructing proximal right ureter
-Maintain on empiric IV Rocephin, check urine culture blood culture
- Urology taking patient to OR for possible stent placement
2. Perinephric abscess
- Patient had recent perinephric abscess and was meant to be on Keflex therapy till 11/14
- CT abdomen pelvis showing improvement in size although not complete resolution
- TALIA draining sanguinous liquid
3. Paroxysmal atrial fibrillation
-Medication list needs to be confirmed, was on Xarelto in the past
DNR/DNI
Original Note:
Family Physician
-
Family Physician: Ish Rogers MD
Chief Complaint
-
Right flank pain
History of Present Illness
79 year old male with history of paroxysmal Afib, HTN, hypothyroidism, CHF, COPD, Anxiety/depression/bipolar disorder/tardive dyskinesia, prostate cancer hx, nephrolithiasis, r perinephric abscess, who presents from [facility] with right flank
pain and right lower chest paib on deep inhalation. He has a right perinephric drainage tube in place. At the time of interview, he reports that pain is currently controlled, denies nausea/vomiting, abdominal pain, new urinary symptoms, or fever.
He was recently admitted in 09/2024 for recurrent r perinephric abscess for which drain was placed and he was treated with ceftriaxone, discharged on cefalexin for 3-4 weeks duration pending resolution of abscess. He is still on this regimen
currently.
Medical History
Past Medical History
Past Medical History: Reports Arrhythmia (paroxysmal Afib), Cancer (prostate cancer), CHF, COPD, HTN, Hypothyroidism and Psychiatric (anxiety/depression/bipolar disorder/tardive dyskinesia)
Past Surgical History: Reports Cardiac (pacemaker) and Other (perinephric abscess percutaneous drainage catheter placement)
Social History
Tobacco: Non-smoker
Alcohol: None
Drug: None
Personal: Single
Living: Group Home ([facility] [place]
Family History
Family History: Not pertinent
Allergies / Home Medications
Allergies reflects when Allergies were last updated in [employer].
Home Medications with original date entered in [employer]
Allergy/Medication List:
Allergies
Allergy/AdvReac Type Severity Reaction Status Date / Time
ciprofloxacin Allergy Unknown Verified 03/29/24 16:31
Quinolones Allergy Unknown Verified 03/29/24 16:31
Home Medications
acetaminophen 325 mg tablet (Tylenol) 650 mg PO Q6HPRN PRN mild pain 03/26/24
aluminum-mag hydroxide-simethicone 200 mg-200 mg-20 mg/5 mL oral susp 30 ml PO Q4HPRN PRN heartburn 03/26/24
latanoprost 0.005 % eye drops 1 drp BOTH EYES HS Eye Condition 02/08/25
loperamide 2 mg tablet 2 mg PO DAILYPRN PRN diarrhea 03/26/24
nystatin 100,000 unit/gram topical powder 1 applic topical TIDPRN PRN abd folds 03/26/24
polyethylene glycol 3350 17 gram oral powder packet (Miralax) 17 g PO [id number] PRN constipation 03/26/24
trazodone 50 mg tablet 25 mg PO HS Sleep 03/26/24
diphenhydramine HCl 25 mg capsule (Benadryl) 25 mg PO [id number] PRN swollen lips 10/11/24
ipratropium 0.5 mg-albuterol 3 mg (2.5 mg base)/3 mL nebulization soln 3 ml inhalation R Q4HPRN PRN sob 10/11/24
levothyroxine 175 mcg tablet (Synthroid) 175 mcg PO DAILY Thyroid 10/11/24
melatonin 5 mg tablet 5 mg PO HS Sleep 10/11/24
aspirin 81 mg tablet,delayed release 81 mg PO DAILY #0 tabs 10/14/24
cephalexin 500 mg capsule 1,000 mg (2 x 500 mg) PO Q8H 4 weeks #168 caps 10/14/24
Review of Systems
-
History Source: Patient
Constitutional: Denies Fever
Respiratory: Reports Other (right lower chest pain with deep inhalation)
Abdomen/GI: Denies Abdominal Pain, Nausea or Vomiting
: Reports Flank Pain and Incontinence; Denies Difficulty Voiding or Bleeding
Physical Exam
Vital Signs
Vital Signs
Temp Pulse Resp BP Pulse Ox
97.4 F 80 18 120/73 97
11/04/24 05:02 11/04/24 09:00 11/04/24 07:45 11/04/24 09:00 11/04/24 09:00
Physical Exam
General: Well Developed, Well Nourished and Comfortable
HEENT: NormoCephalic and Anicteric
Respiratory: Clear, Non Labored Respirations and Other (2L NC); No Wheezes, Rales, Rhonchi or Crackles
Cardiac: S1/S2
GI: Soft, Non Tender, Non Distended and Normal Bowel Sounds
Genito-urinary: Costovertebral angle tend and Other (talia drain in right flank with serosanguinous drainage in bulb)
Musculoskeletal: No Clubbing, No Cyanosis and No Edema
Skin: Warm and Dry
Neuro: Awake, Alert, Oriented and Other
Psych: Calm
Laboratory Results
-
11/04/24 05:07
11/04/24 05:07
Laboratory Results
Total Bilirubin 0.7 mg/dl (0.2-1.3) 11/04/24 05:07
AST 16 U/L (17-59) L 11/04/24 05:07
ALT 13 U/L (0-50) 11/04/24 05:07
Alkaline Phosphatase 79 U/L (38-126) 11/04/24 05:07
Impression/Plan
-
IMPRESSION:
79 year old male with history of paroxysmal Afib, HTN, hypothyroidism, CHF, COPD, Anxiety/depression/bipolar disorder/tardive dyskinesia, prostate cancer hx, nephrolithiasis, r perinephric abscess, who presents from [facility] with r partially
obstructing kidney stone
PLAN:
Obstructive uropathy:
CT abd/pel 11/04/2024: There are nonobstructing intrarenal calculi in the lower pole of the right kidney measuring up to 7.8 mm in size. There is a 5.3 x 3.9 mm partially obstructing calculus in the right ureteropelvic junction which is new from
10/11/2024. There is mild distention of the right renal pelvis, but no distention of the right intrarenal calyces.
- Get UA + culture
- History of proteus mirabilis UTI. Hold cefalexin, start ceftriaxone
- Elevated WBC, will get blood cultures
- flomax
- Appreciate urology. Pt is agreeable to surgery.
- Pain control
R perinephric abscess:
Per CT ab/pel 11/04/2024: The abscess now measures 4.5 x 4.6 x 5.9 cm in size which is smaller than on the prior exam performed 10/11/2024 prior to percutaneous drainage placement.
- Hold cefalexin (for Ecoli positive perinephric abscess), start ceftriaxone
- Follow drain output
Chronic issues:
HTN: Stable
Paroxysmal afib; Stable
Heart failure unspecified type (no echo on records): Not in acute exacerbation
Hypothyroidism: continue Levothyroxine
COPD: Not in acute exacerbation
Anxiety/depression/bipolar disorder/tardive dyskinesia: Stable
Hx of prostate cancer
Diet: IDDSI 6
Code Status: DNR/DNI
DVT ppx: Holding Heparin pending urology assessment/procedure
[2024-11-04] MEDS: FLOMAX 0.4 MG PO (09:42)
[2024-11-04] MEDS: ROCEPHIN 2000 MG IV (09:42)
--- NOTE | 2024-11-04 10:12 | CM ---
CM reviewed chart and met with pt bedside in ED. Pt lives in LTC at [facility], has been there for several years. Pt states has also been at [facility] and [facility] in past. Per prior CM notes, pt had been on [facility] in past
but was taken off as he no longer qualified.
Pt needs assistance with ADLs and personal care, self propels wheelchair. Has R kidney drain.
With pt's permission I called his cousin Susie. She is not his POA but assists with medical decision making. She told me she has not seen Juarez in over 20 years. He is , no children.
PCP: Ish Rogers
Pharmacy: Meds supplied by [facility]
Discharge plan: Anticipate return to [facility] LTC when medically stable.
--- NOTE | 2024-11-04 10:36 | CONS.URO ---
Consultation
-
Date/Time Consultation Performed: 11/04/24 0830
Requesting Provider: ED
Performing Provider: Jarrod
Reason for Consultation: right ureteral stone
Medical History
History of Present Illness
[facility] resident
DNR status
was previously on hospice [apparently revoked]
complex urologic hx: right perinephric abscess -- percutaneously drained 03/2024 then ~ 10/10/2024
pt returned to ED with right flank pain
Past Medical History
Past Medical History: Other (paroxysmal Afib, HTN, hypothyroidism, CHF, COPD, Anxiety/depression/bipolar disorder/tardive dyskinesia, prostate cancer hx, nephrolithiasis)
Past Surgical History: Urological (prostate brachytherapy; Right percutaneous abscess drainage x 2 during 2024)
Social History
Unable to obtain full social history at this time due to: Dementia
Personal: Single
Living: [facility]
Employment: Not Employed
Family History
Family History: Reviewed & Not Pertinent
Allergies/Home Medications
Allergies
Allergy/AdvReac Type Severity Reaction Status Date / Time
ciprofloxacin Allergy Unknown Verified 03/29/24 16:31
Quinolones Allergy Unknown Verified 03/29/24 16:31
Home Medications
�Medication �Instructions �Recorded �Confirmed �Type
acetaminophen 325 mg tablet 650 mg PO Q6HPRN PRN mild pain 03/26/24 10/11/24 History
(Tylenol)
aluminum-mag hydroxide-simethicone 30 ml PO Q4HPRN PRN heartburn 03/26/24 10/11/24 History
200 mg-200 mg-20 mg/5 mL oral susp
latanoprost 0.005 % eye drops 1 drp BOTH EYES HS Eye Condition 03/26/24 10/11/24 History
loperamide 2 mg tablet 2 mg PO DAILYPRN PRN diarrhea 03/26/24 10/11/24 History
nystatin 100,000 unit/gram topical 1 applic topical TIDPRN PRN abd 03/26/24 10/11/24 History
powder folds
polyethylene glycol 3350 17 gram 17 g PO [id number] PRN constipation 03/26/24 10/11/24 History
oral powder packet (Miralax)
trazodone 50 mg tablet 25 mg PO HS Sleep 03/26/24 10/11/24 History
diphenhydramine HCl 25 mg capsule 25 mg PO [id number] PRN swollen lips 10/11/24 10/11/24 History
(Benadryl)
ipratropium 0.5 mg-albuterol 3 mg 3 ml inhalation R Q4HPRN PRN sob 10/11/24 10/11/24 History
(2.5 mg base)/3 mL nebulization
soln
levothyroxine 175 mcg tablet 175 mcg PO DAILY Thyroid 10/11/24 10/11/24 History
(Synthroid)
melatonin 5 mg tablet 5 mg PO HS Sleep 10/11/24 10/11/24 History
aspirin 81 mg tablet,delayed 81 mg PO DAILY #0 tabs 10/14/24 Rx
release
cephalexin 500 mg capsule 1,000 mg (2 x 500 mg) PO Q8H 4 10/14/24 Rx
weeks #168 caps
Physical Exam
Vital Signs
Vital Signs
Temp Pulse Resp BP Pulse Ox
97.4 F 80 18 97/56 94
11/04/24 05:02 11/04/24 09:50 11/04/24 09:50 11/04/24 09:50 11/04/24 09:50
Lab / Testing Results
Laboratory Results
11/04/24 05:07
11/04/24 05:07
Physical Exam
elderly male on ED [facility]
General: No Apparent Distress
GI: Other (Right percutaneous tube with scant drainage)
Skin: Warm
Neuro: Awake
Psych: Calm and Apparent Dementia
Assessment / Plan
-
Right proximal ureteral stone
numerous renal stones
persistent right perinephric abscess
plan: right ureteral stenting today
Data Reviewed
-
CT Scan: Image personally visualized and interpreted
Lab Data: Labs Reviewed
Old Records: Reviewed
[2024-11-04] MEDS: SYNTHROID 175 MCG PO (12:53)
[2024-11-04] MEDS: GENTAMICIN 55 MG IV (12:53)
--- NOTE | 2024-11-04 13:56 | W.PN.UPDATE ---
Update Note
Progress Note Update
Right proximal ureteral stone
Numerous renal stones
Persistent right perinephric abscess
Patient was added to OR schedule this afternoon for cysto + right ureteral stent placement.
When OR desk called to have patient brought to preop - notified that patient was ordered for regular diet by primary care team.
Patient had lunch ~12-12:30, violating his NPO status.
Patient clinically stable - HDS, non-toxic.
WBC mildly elevated, Cr WNL.
Plan:
- NPO@MN
- Continue IV antibiotics
- To OR tomorrow AM for cyso + right ureteral stent
D/w Anesthesiologist.
[2024-11-04 14:14] LABS: Urine Character Clear (Clear)
[2024-11-04 14:31] LABS: Urine Red Blood Cell 0-2 /HPF (0-2); Urine Squamous Cell 0-2 /LPF (Few)
[2024-11-04 14:32] LABS: Urine White Cell 0-2 /HPF (0-5)
--- NOTE | 2024-11-04 14:46 | PTCARENOTE ---
Received pt from ED approx 11:30am. Pt AAOX3. Forgetful at times. Pt denies pain/SOB. Call lopez within reach. Plan of care ongoing.
[2024-11-04] MEDS: DESYREL 25 MG PO (21:39)
[2024-11-04] MEDS: MELATONIN 5 MG PO (21:39)
[2024-11-04] MEDS: XALATAN OPHTHALMIC SOLUTION 1 DROP BOTH EYES (21:40)
[2024-11-05] VITALS (13 sets, daily range): BP systolic 101–129; BP diastolic 57–71; BMI 30.8
[2024-11-05] MEDS: DILAUDID 0.5 MG IV ×2 (00:43→06:59)
[2024-11-05] MEDS: SYNTHROID PO (06:42)
[2024-11-05 08:29] LABS: Hematocrit 39.9 % (39.0-52.0); Hemoglobin 12.5 g/dL (13.0-18.0); Mean Corp Hgb Conc. 31.3 g/dL (33.0-37.0); Mean Corpuscular Volume 89.7 fL (80.0-94.0); Red Cell Dist. Width 15.4 % (11.5-14.5)
[2024-11-05 08:43] LABS: Blood Urea Nitrogen 18 mg/dl (9-20); Calcium 9.1 mg/dl (8.4-10.2); Carbon Dioxide 27 mmol/L (22-30); Chloride 105 mmol/L (98-107); Estimated Creatinine Clearance 97 ml/min; Glucose 115 mg/dl (70-99); Potassium 4.4 mmol/L (3.5-5.1); Sodium 137 mmol/L (135-145); eGFR > 60.00
[2024-11-05] MEDS: ROCEPHIN IV (09:32)
--- NOTE | 2024-11-05 10:16 | W.IMMPOSTOP ---
Surgical Immed Post Op Note
-
Primary Surgeon: Anat
Pre-op Diagnosis: Obstructing right ureteral stone, chronic right perinephric abscess s/p drain placement
Post-op Diagnosis: Same
Procedure Performed: cysto + RIGHT ureteral stent insertion
Anesthesia Type: LMA
Specimen / Cultures: None/None
Estimated Blood Loss: Negligible
Drains: 4.7Fr x 26 cm JJ right ureteral stent
Complications: None
Operative Findings: Final KUB and cystoscopy confirming right ureteral stent position.
[2024-11-05] MEDS: STERILE WATER FOR INJECTION IV (11:09)
[2024-11-05] MEDS: FLOMAX 0.4 MG PO (11:15)
--- NOTE | 2024-11-05 12:28 | W.PN.HOSP.TC ---
Today's Communication/Plan
-
maintain empiric rocephin
f/u blood cs report
Assessment / Plan
Assessment / Plan
1. Obstructing right ureteral stone
- Patient having right flank pain
- CT abdomen pelvis showing 5 mm stone obstructing proximal right ureter
- s/p cystoscopy and ureteral stent placement today
- UA did not show significant bacteriuria/pyuria. Blood cs report pending.
- Maintain on empiric IV rocephin.
2. Perinephric abscess
- Patient had recent perinephric abscess and was meant to be on Keflex therapy till 11/14
- CT abdomen pelvis showing improvement in size although not complete resolution
- NING draining sanguinous liquid
3. Paroxysmal atrial fibrillation
-Medication list needs to be confirmed, was on Xarelto in the past
Essential HTN
COPD
Prostate cancer
Hypothyroidism
DNR/DNI
Anticipated Discharge: 24 - 48 hours
Subjective/Interval History
-
Date of Service: November 05, 2024
seen post-procedure
patient somnolent
Objective Data
-
Labs:
Laboratory Results
11/05/24
07:52
WBC 8.4
Hgb 12.5 L
Hct 39.9
Plt Count
Sodium 137
Potassium 4.4
Chloride 105
Carbon Dioxide 27
BUN 18
Creatinine 0.7
Glucose 115 H
Calcium 9.1
Vital Signs:
Vital Signs
Temp Pulse Resp BP Pulse Ox
98.5 F 70 18 107/60 96
11/05/24 11:00 11/05/24 11:00 11/05/24 11:00 11/05/24 11:00 11/05/24 11:00
I&O
11/04/24 11/05/24 11/06/24
06:59 06:59 06:59
Intake Total 1140 / 1140 100 / 100
Output Total 610 / 610
Balance 530 / 530 100 / 100
Review of Systems
-
Unable to obtain full review of systems at this time due to: Acuity
Physical Exam
-
General: Comfortable
HEENT: Oxygen
Neuro: Negative Awake, Alert or Oriented
[2024-11-05] MEDS: XALATAN OPHTHALMIC SOLUTION 1 DROP BOTH EYES (21:48)
[2024-11-05] MEDS: MELATONIN 5 MG PO (21:48)
[2024-11-05] MEDS: DESYREL 25 MG PO (21:48)
[2024-11-06 03:16] VITALS: BP 129/81
[2024-11-06] MEDS: ROXICODONE 5 MG PO ×2 (05:54→13:00)
[2024-11-06] MEDS: SYNTHROID 175 MCG PO (05:54)
[2024-11-06 05:57] VITALS: BMI 30.3
[2024-11-06] MEDS: FLOMAX 0.4 MG PO (07:43)
[2024-11-06 08:00] VITALS: BP 158/93
[2024-11-06 09:01] LABS: Blood Urea Nitrogen 16 mg/dl (9-20); Calcium 9.1 mg/dl (8.4-10.2); Carbon Dioxide 29 mmol/L (22-30); Chloride 105 mmol/L (98-107); Estimated Creatinine Clearance 112 ml/min; Glucose 121 mg/dl (70-99); Potassium 4.3 mmol/L (3.5-5.1); Sodium 138 mmol/L (135-145); eGFR > 60.00
[2024-11-06 09:18] LABS: Hematocrit 40.8 % (39.0-52.0); Hemoglobin 13.1 g/dL (13.0-18.0); Mean Corp Hgb Conc. 32.1 g/dL (33.0-37.0); Mean Corpuscular Volume 89.3 fL (80.0-94.0); Red Cell Dist. Width 15.0 % (11.5-14.5)
[2024-11-06] MEDS: ROCEPHIN 1000 MG IV (09:36)
[2024-11-06] MEDS: STERILE WATER FOR INJECTION 10 ML IV (09:36)
--- NOTE | 2024-11-06 12:58 | W.PN.HOSP.TC ---
Today's Communication/Plan
-
Maintained on antibiotic
possible abscess drain removal
Assessment / Plan
Assessment / Plan
1. Obstructing right ureteral stone
- Patient having right flank pain
- CT abdomen pelvis showing 5 mm stone obstructing proximal right ureter
- s/p cystoscopy and ureteral stent placement on 11/05
- UA did not show significant bacteriuria/pyuria. Blood cs report pending.
- Maintain on empiric IV rocephin.
2. Perinephric abscess
- Patient had recent perinephric abscess and was meant to be on Keflex therapy till 11/14
- CT abdomen pelvis showing improvement in size although not complete resolution
- NING draining sanguinous liquid -drain was flushed by RN last night -output of 20 mL only
- Discussed with urology/IRAD for possible removal before discharge
3. Paroxysmal atrial fibrillation
-Medication list needs to be confirmed, was on Xarelto in the past
4. Essential HTN - uncontrolled
-Not on blood pressure medication
-Adding Norvasc 5 mg daily
COPD
Prostate cancer
Hypothyroidism
DNR/DNI
Care plan discussed with urology
Anticipated Discharge: 24 - 48 hours
Subjective/Interval History
-
Date of Service: November 06, 2024
Denies of having any right flank pain
Afebrile
No other issues reported
Objective Data
-
Labs:
Laboratory Results
11/06/24
08:03
WBC 11.9 H
Hgb 13.1
Hct 40.8
Plt Count
Sodium 138
Potassium 4.3
Chloride 105
Carbon Dioxide 29
BUN 16
Creatinine 0.6 L
Glucose 121 H
Calcium 9.1
Vital Signs:
Vital Signs
Temp Pulse Resp BP Pulse Ox
97.8 F 84 18 158/93 100
11/06/24 08:00 11/06/24 08:00 11/06/24 08:00 11/06/24 08:00 11/06/24 08:00
I&O
11/05/24 11/06/24 11/07/24
06:59 06:59 06:59
Intake Total 1140 / 1140 310 / 310
Output Total 610 / 610 370 / 370
Balance 530 / 530 -60 / -60
Review of Systems
-
Respiratory: Reports No Symptoms
Cardiac: Reports No Symptoms
Abdomen/GI: Reports No Symptoms
Physical Exam
-
General: Comfortable
HEENT: Oxygen
Neuro: Negative Awake, Alert or Oriented
[2024-11-06] MEDS: NORVASC 5 MG PO (13:11)
[2024-11-06 15:00] VITALS: BP 120/71
[2024-11-06] MEDS: DULCOLAX 10 MG RECTAL (20:25)
[2024-11-06] MEDS: SENOKOT-S 1 TABLET PO (20:25)
[2024-11-06] MEDS: XALATAN OPHTHALMIC SOLUTION 1 DROP BOTH EYES (22:06)
[2024-11-06] MEDS: MELATONIN 5 MG PO (22:06)
[2024-11-06] MEDS: DESYREL 25 MG PO (22:06)
[2024-11-06 22:34] VITALS: BP 127/71
[2024-11-07 06:00] VITALS: BMI 30.6
[2024-11-07] MEDS: SYNTHROID 175 MCG PO (06:06)
--- NOTE | 2024-11-07 06:54 | W.PN.UPDATE ---
Update Note
Progress Note Update
D/w Hospitalist - IR consult for drain study +/- repositioning vs. exchange for chronic right perinephric abscess.
Continue IV antibiotics.
[2024-11-07 07:10] VITALS: BP 111/76
[2024-11-07 08:34] LABS: Blood Urea Nitrogen 20 mg/dl (9-20); Calcium 8.8 mg/dl (8.4-10.2); Carbon Dioxide 28 mmol/L (22-30); Chloride 105 mmol/L (98-107); Estimated Creatinine Clearance 113 ml/min; Glucose 90 mg/dl (70-99); Potassium 4.1 mmol/L (3.5-5.1); Sodium 139 mmol/L (135-145); eGFR > 60.00
[2024-11-07] MEDS: FLOMAX 0.4 MG PO (09:26)
[2024-11-07] MEDS: NORVASC 5 MG PO (09:26)
[2024-11-07] MEDS: STERILE WATER FOR INJECTION 10 ML IV (09:27)
[2024-11-07] MEDS: ROCEPHIN 1000 MG IV (09:27)
--- NOTE | 2024-11-07 11:31 | CM ---
Chart reviewed. Care ongoing
Cysto + RIGHT ureteral stent insertion on 11/05
Cont IV abx
Plan: Return to [facility] when medically stable
--- NOTE | 2024-11-07 12:04 | W.PN.HOSP.TC ---
Today's Communication/Plan
-
IRAD eval for R perinephric drain replacement versus repositioning
wean o2
IS ordered
eventual SNF
IV abx for now
Assessment / Plan
Assessment / Plan
Obstructing right ureteral stone
- Patient having right flank pain
- CT abdomen pelvis showing 5 mm stone obstructing proximal right ureter
- s/p cystoscopy and ureteral stent placement on 11/05
- UA did not show significant bacteriuria/pyuria. Blood cultures remains negative.
- Maintain on empiric IV rocephin.
Perinephric abscess
- Patient had recent perinephric abscess and was meant to be on Keflex therapy till 11/14
- CT abdomen pelvis showing improvement in size although not complete resolution
- NING draining sanguinous liquid -
Management of NING drain per urology-plan for IR right evaluation for right perinephric drain replacement versus repositioning
Paroxysmal atrial fibrillation
-Not on anticoagulation
Essential HTN - uncontrolled
-Was started on Norvasc 5 mg daily
Acute hypoxic respiratory insufficiency likely secondary to atelectasis
- No productive cough. No active wheezing.
- Wean oxygen as tolerated. Continue with bronchodilators
Prostate cancer continue with Flomax
Hypothyroidism-cont replacement
DNR/DNI
Anticipated Discharge: 24 - 48 hours
Subjective/Interval History
-
Date of Service: November 07, 2024
overnight placed on oxygenation
pt states nc helping him
denies chest pain
states of shortness of breath overnight
denies any cough
Objective Data
-
Labs:
Laboratory Results
11/07/24
06:40
Sodium 139
Potassium 4.1
Chloride 105
Carbon Dioxide 28
BUN 20
Creatinine 0.6 L
Glucose 90
Calcium 8.8
Vital Signs:
Vital Signs
Temp Pulse Resp BP Pulse Ox
98.3 F 78 20 111/76 99
11/07/24 07:10 11/07/24 07:10 11/07/24 07:10 11/07/24 07:10 11/07/24 07:10
I&O
11/06/24 11/07/24 11/08/24
06:59 06:59 06:59
Intake Total 310 / 310 940 / 940
Output Total 370 / 370
Balance -60 / -60 940 / 940
Physical Exam
-
General: Well Developed and No Apparent Distress
HEENT: Normocephalic, Atraumatic, Moist Mucous Membranes, Nose Appears Normal, Ears Appear Normal and Oxygen
Respiratory: Non Labored Respirations and Decreased Breath Sounds; Negative Accessory Resp Muscle Use
Cardiac: Regular Rhythm and S1/S2; Negative Murmur, Rub or Gallop
GI: Soft, Nontender, Nondistended and Normal Bowel Sounds; Negative Organomegaly
Rectal: Deferred by Provider
Genito-urinary: Other (R side NING drain noted with sero-sanginous drainage)
Musculoskeletal: No Clubbing, No Cyanosis and No Edema
Skin: Negative Rash
Neuro: Awake and Nonfocal/Grossly Intact
Data Reviewed
-
Total Time Spent with Patient (in minutes): 55
[2024-11-07 15:39] VITALS: BP 128/66
[2024-11-07 16:00] VITALS: BP 136/73; BP_SYST 75
[2024-11-07 16:54] VITALS: BP 140/82
--- NOTE | 2024-11-07 16:54 | W.PN.UPDATE ---
Update Note
Progress Note Update
R flank/perinephric drain check performed.
- Minimal recent output.
- Recent CT questioned the persistence of an abscess adjacent to the indwelling catheter, but on my review the tissue appeared more inflammatory in nature with mild enhancement suggestive of phlegmon/inflammatory tissue. No definitive remaining
fluid identified.
- 10 ml of contrast injected under fluoro. Patent catheter with small pocket of contrast within the loop of the pigtail with reflux of contrast back along the catheter. Catheter aspirated yielding bloody debris. No purulent fluid collected.
- Given the above findings, elected to remove catheter.
[2024-11-07] MEDS: ROXICODONE 5 MG PO (19:39)
[2024-11-07] MEDS: MELATONIN 5 MG PO (21:47)
[2024-11-07] MEDS: DESYREL 25 MG PO (21:47)
[2024-11-07] MEDS: MIRALAX 17 GRAMS PO (21:48)
[2024-11-07] MEDS: XALATAN OPHTHALMIC SOLUTION 1 DROP BOTH EYES (21:48)
[2024-11-07] MEDS: SENOKOT-S 1 TABLET PO (21:49)
[2024-11-07 23:16] VITALS: BP 108/68
[2024-11-08] MEDS: ROXICODONE 5 MG PO (02:36)
[2024-11-08] MEDS: SYNTHROID 175 MCG PO (04:59)
[2024-11-08 05:55] VITALS: BMI 30.6
[2024-11-08 07:05] VITALS: BP 121/75
[2024-11-08] MEDS: NORVASC 5 MG PO (08:08)
[2024-11-08] MEDS: FLOMAX 0.4 MG PO (08:09)
[2024-11-08 08:11] LABS: Hematocrit 40.6 % (39.0-52.0); Hemoglobin 12.5 g/dL (13.0-18.0); Mean Corp Hgb Conc. 30.8 g/dL (33.0-37.0); Mean Corpuscular Volume 90.2 fL (80.0-94.0); Nucleated Red Blood Cells % 0 % (-); Red Cell Dist. Width 15.4 % (11.5-14.5)
[2024-11-08 08:14] LABS: Blood Urea Nitrogen 18 mg/dl (9-20); Calcium 8.7 mg/dl (8.4-10.2); Carbon Dioxide 29 mmol/L (22-30); Chloride 105 mmol/L (98-107); Estimated Creatinine Clearance 97 ml/min; Glucose 95 mg/dl (70-99); Potassium 4.2 mmol/L (3.5-5.1); Sodium 141 mmol/L (135-145); eGFR > 60.00
[2024-11-08] MEDS: MIRALAX 17 GRAMS PO (08:16)
[2024-11-08] MEDS: SENOKOT-S 1 TABLET PO (08:16)
--- NOTE | 2024-11-08 08:57 | W.PN.UPDATE ---
Update Note
Progress Note Update
11/05: s/p cystoscopy + right stent insertion for obstructing right ureteral stone.
Plan:
- IR aspiration and removal of NING drain completed 11/07
- F/U in 3-4 weeks for preop visit to schedule definitive outpatient stone surgery (right ULS)
D/w Hospitalist.
[2024-11-08] MEDS: ROCEPHIN 1000 MG IV (09:04)
[2024-11-08] MEDS: STERILE WATER FOR INJECTION 10 ML IV (09:04)
[2024-11-08] MEDS: TYLENOL 650 MG PO (09:04)
[2024-11-08] MEDS: DESENEX/MITRAZOL/ZEASORB 1 APPLIC TOPICAL (09:44)
--- NOTE | 2024-11-08 11:31 | CM ---
Chart reviewed. Per hospitalist, patient is able to d/c today. Patient is a LTC resident at [facility]
Spoke w/ [facility] admissions, agreeable to patient's return. Confirmed w/c van transport can be charged to facility as patient is a resident. Patient does not qualify for an ambulance and w/c bound at baseline
Clinicals sent to [facility] in [facility]
Met w/ patient bedside, IMM verbally reviewed, copy provided, copy on chart
Transport form on chart
[facility]- LT
Report: [phone]

Plan: Return to [facility]
--- NOTE | 2024-11-08 11:54 | W.PN.HOSP.TC ---
Today's Communication/Plan
-
DC back to [facility]
Assessment / Plan
Assessment / Plan
Obstructing right ureteral stone
- Patient having right flank pain
- CT abdomen pelvis showing 5 mm stone obstructing proximal right ureter
- s/p cystoscopy and ureteral stent placement on 11/05
- UA did not show significant bacteriuria/pyuria. Blood cultures remains negative.
- Transition patient back to Keflex to complete course as was recommended during previous admission till 11/14/2024
Perinephric abscess
- Patient had recent perinephric abscess and was meant to be on Keflex therapy till 11/14
- CT abdomen pelvis showing improvement in size although not complete resolution
- NING draining sanguinous liquid -
- Status post evaluation by interventional radiology and underwent studies with not much fluid collection/abscess and NING drain was removed.
Paroxysmal atrial fibrillation
-Not on anticoagulation
Essential HTN - uncontrolled
-Was started on Norvasc 5 mg daily
Acute hypoxic respiratory insufficiency likely secondary to atelectasis
- No productive cough. No active wheezing.
- Wean oxygen as tolerated. Continue with bronchodilators
Prostate cancer continue with Flomax
Hypothyroidism-cont replacement
DNR/DNI
Discussed with Dr. ARABELLA ortega for discharge and outpatient follow-up for stent and stone management
More than 30 minutes spent in discharge including
Final examination of the patient
Summarizing hospital stay
Instructions for continuing care to all relevant caregivers
Preparation of discharge records, prescriptions, and referral forms
Total time spent (in minutes): 52
Anticipated Discharge: Today
Subjective/Interval History
-
Date of Service: November 08, 2024
Off oxygen
Tolerating diet
States feeling better since NING drain has been removed
Objective Data
-
Labs:
Laboratory Results
11/08/24
06:47
WBC 7.5
Hgb 12.5 L
Hct 40.6
Plt Count
Sodium 141
Potassium 4.2
Chloride 105
Carbon Dioxide 29
BUN 18
Creatinine 0.7
Glucose 95
Calcium 8.7
Vital Signs:
Vital Signs
Temp Pulse Resp BP Pulse Ox
97.7 F 81 20 130/79 95
11/08/24 07:05 11/08/24 08:08 11/08/24 07:05 11/08/24 08:08 11/08/24 07:05
I&O
11/07/24 11/08/24 11/09/24
06:59 06:59 06:59
Intake Total 940 / 940 680 / 680
Output Total 150 / 150 200 / 200
Balance 940 / 940 530 / 530 -200 / -200
--- NOTE | 2024-11-08 11:56 | W.DCSUMMARY ---
Discharge Summary
Discharge Data
Date of Admission: 11/04/24
Date of Discharge: 11/08/24
-
Pending Results: No
Hospital Course
79-year-old male with past medical history of atrial fibrillation, chronic diastolic congestive heart failure, asthma, COPD, hypothyroidism, anxiety, depression, history of right perinephric abscess status post drain placement came to ER with new
onset of right flank pain. In ER a CT abdomen pelvis showing right UPJ junction 5 mm obstructing stone stone. Started on IV ceftriaxone. Urology was consulted. Patient underwent cystoscopy with right ureteral stent insertion. Patient also had
right right NING drain which was not draining much of fluids. Patient underwent evaluation interventional radiology underwent right perinephric drain check. Recent imaging which was reviewed by radiologist intervention tissue (more inflammatory in
nature with mild enhancement suggestive of phlegmon/inflammatory tissue. Subsequently patient right NING drain catheter was removed. Patient will be continued Keflex as per previous recommendation to continue till 11/14/2024. Patient will be
discharged back to [facility].
Discharge Plan
-
Patient Disposition: Half-Way/SNF
Discharge Diagnosis/Procedures: Right renal stone obstructive s/p cystoscopy and ureteral stent placement on 11/05
Status post right sided NING drain removal
Diet: Low Cholesterol
Activity: With assistance and As tolerated
Driving Restrictions: Not until seen by your Dr
Referrals:
Gm Coppola MD [Active, Urology] - in three to four weeks
Referral Note: F/U in 3-4 weeks for a PREOP visit for kidney stone procedure. Please call to make appointment.
Ish Rogers MD [Family Provider, Family Practice] - in less than 1 week
Prescriptions:
New
amlodipine 5 mg Tablet
5 mg PO DAILY Qty: 30 0RF
Rx Instructions:
Hold for SBP<105
Continued
latanoprost 0.005 % Drops
1 drp BOTH EYES HS
acetaminophen [Tylenol] 325 mg Tablet
650 mg PO Q6HPRN PRN (Reason: mild pain)
trazodone 50 mg Tablet
25 mg PO HS
polyethylene glycol 3350 [Miralax] 17 gram Powder In Packet
17 g PO [id number] PRN (Reason: constipation)
alum-mag hydroxide-simeth 200-200-20 mg/5 mL Suspension
30 ml PO Q4HPRN PRN (Reason: heartburn)
nystatin 100,000 unit/gram Powder
1 applic TOPICAL TIDPRN PRN (Reason: abd folds)
levothyroxine [Synthroid] 175 mcg Tablet
175 mcg PO DAILY
ipratropium-albuterol 0.5 mg-3 mg(2.5 mg base)/3 mL Solution For Nebulization
3 ml INHALATION R Q4HPRN PRN (Reason: sob)
diphenhydramine HCl [Benadryl] 25 mg Capsule
25 mg PO B90UDDS PRN (Reason: swollen lips)
melatonin 5 mg Tablet
5 mg PO HS
aspirin 81 mg Tablet,Delayed Release (Dr/Ec)
81 mg PO DAILY Qty: 0 0RF
cephalexin 500 mg capsule
1,000 mg PO Q8H 6 Days Qty: 36 0RF
Rx Instructions:
LAST DATE 11/14/24
Discontinued
loperamide 2 mg Tablet
2 mg PO DAILYPRN PRN (Reason: diarrhea)
Patient Comments:
patient unsure if he still gets this at [facility]
Rx Instructions:
give 2 tablets after each loose stool of diarrhea,max dose of 8 tablets in 24hrs
Discharge Orders:
Discharge Patient (As Directed); Ordered 11/08/24
Ordered By: Michael Bethea
Discharge Date and Time
Print Language: PORTUGUESE
[2024-11-08] MEDS: PREVNAR 20 0.5 ML IM (14:43)
[2024-11-08 15:00] VITALS: BP 133/68
== END 2024-11-08 16:45 | DRG 659 ==
LOC: 4 WEST ACU 09:19
PROVIDERS: Radiology Diagnostic Radiology; Student in an Organized Health Care Education/Training Program; Surgery; ADMITTING PHYSICIAN Hospitalist; ATTENDING PHYSICIAN Hospitalist; EMERGENCY PHYSICIAN Student in an Organized Health Care Education/Training Program; FAMILY PHYSICIAN Family Medicine; OTHER PHYSICIAN Specialist
PROC: 0T768DZ Dilation of Right Ureter with Intraluminal Device, Via Natural or Artificial Opening Endoscopic (ICD-10-PCS; 2024-11-05)
PROC: 0TP5X0Z Removal of Drainage Device from Kidney, External Approach (ICD-10-PCS; 2024-11-07)
PROC: 3E0234Z Introduction of Serum, Toxoid and Vaccine into Muscle, Percutaneous Approach (ICD-10-PCS; 2024-11-08)
DX: N20.2 Calculus of kidney with calculus of ureter (principal); N15.1 Renal and perinephric abscess; F03.93 Unspecified dementia, unspecified severity, with mood disturbance; F03.94 Unspecified dementia, unspecified severity, with anxiety; N30.00 Acute cystitis without hematuria; I50.32 Chronic diastolic (congestive) heart failure; J98.11 Atelectasis; N13.9 Obstructive and reflux uropathy, unspecified; Z85.46 Personal history of malignant neoplasm of prostate; E03.9 Hypothyroidism, unspecified; I48.0 Paroxysmal atrial fibrillation; J44.89 Other specified chronic obstructive pulmonary disease; I11.0 Hypertensive heart disease with heart failure; F31.9 Bipolar disorder, unspecified; Z66 Do not resuscitate; Z79.82 Long term (current) use of aspirin; Z79.890 Hormone replacement therapy; Z95.0 Presence of cardiac pacemaker; Z23 Encounter for immunization; R09.02 Hypoxemia
CPT/HCPCS: 50389; 71045; 71046; 74018; 74177; 76000; 80048; 80053; 81003; 81015; 85025; 85027; 87040; 87070; 90677; 93005; 96374; 96375; 99285; C1769; C2617; G0009; Q9967